=== PATIENT | female | born 1935 | race Caucasian/White ===

== ENCOUNTER 2019-04-11 07:33 | Outpatient (CLI) | payer MEDICARE, SELFPAY ==
[2019-04-11 08:14] LABS: Add Urine Microscopic? NO; Appearance Urine Clear (Clear); Bilirubin Urine Negative (Negative); Blood Urine Negative (Negative); Color Urine Yellow (Yellow); Glucose Urine UA Negative (Negative); Ketones Urine Negative (Negative); Leukocyte Esterase Ur Negative (Negative); Nitrate Urine Negative (Negative); Protein Urine Negative (Negative); Specific Grav Ur 1.025 (1.010-1.020); Urobilinogen Urine 0.2 mg/dL (0.2-1.0)
[2019-04-11 08:15] LABS: Basophils Absolute Auto 0.02 K/mm3 (0.00-0.10); Basophils Percent Auto 0.4 % (0.0-1.0); Eosinophils Absolute Auto 0.06 K/mm3 (0.02-0.50); Eosinophils Percent Auto 1.3 % (1.0-6.0); Hematocrit 48.7 % (35.0-42.0); Hemoglobin 16.1 g/dL (11.7-13.8); Immature Granulocyte Absolute 0.03 K/mm3 (0.00-0.00); Immature Granulocyte Percent A 0.7 % (0.0-0.0); Immature Platelet Fraction Pct 2.6 % (1.0-7.0); Lymphocytes Absolute Auto 1.76 K/mm3 (1.10-4.50); Lymphocytes Percent Auto 39.2 % (18.0-42.0); Mean Corpuscular HGB Conc 33.1 g/dL (32.0-36.0); Mean Corpuscular Hemoglobin 30.6 pg (27.0-31.0); Mean Corpuscular Volume 92.4 fL (78.0-102.0); Mean Platelet Volume 10.6 fl (9.2-11.8); Monocytes Percent Auto 8.9 % (2.0-11.0); Neutrophils Absolute Auto 2.2 K/mm3 (1.7-7.2); Neutrophils Percent Auto 49.5 % (50.0-70.0); Platelet Count Result 129 K/mm3 (150-420); Red Blood Count 5.27 M/mm3 (4.20-5.40); Red Cell Distribution Width 11.9 % (11.6-14.4); White Blood Count 4.5 K/mm3 (4.8-10.8)
[2019-04-11 09:17] LABS: Erythrocyte Sedimentation Rate 1 mm/hr (0-20)
[2019-04-11 09:24] LABS: Alanine Aminotransferase 48 U/L (14-59); Albumin Level 4.2 g/dL (3.4-5.0); Alkaline Phosphatase 89 U/L (46-116); Aspartate Amino Transferase 31 U/L (15-37); Blood Urea Nitrogen 24 mg/dL (7-18); Calcium 9.8 mg/dL (8.5-10.1); Carbon Dioxide 30 mmol/L (21-32); Chloride 107 mmol/L (98-108); Cholesterol 206 mg/dL (0-200); Creatine Kinase 65 U/L (26-192); Estimated Glomerular Filt Rate 54; Glucose 99 mg/dL (70-99); HDL Direct 63 mg/dL (40-60); LDL Cholesterol Calculated 110 mg/dL (<130); Osmolality Calculated 308 mOsm/kg (285-295); Sodium 147 mmol/L (136-145); Total Protein 7.1 g/dL (6.4-8.2); Triglycerides 167 mg/dL (0-150)
[2019-04-11 11:06] LABS: CRP < 0.2 mg/dL (0.0-0.9)
[2019-04-15 09:23] LABS: Vitamin D 25 Hydroxy 32 ng/mL (30-100)
== END 2019-04-11 07:34 | disposition home or self-care (01) ==
PROVIDERS: PCP Internal Medicine; Visit Provider Internal Medicine
DX: E78.2 Mixed hyperlipidemia (principal); I10 Essential (primary) hypertension; D69.6 Thrombocytopenia, unspecified; M81.0 Age-related osteoporosis without current pathological fracture; M35.3 Polymyalgia rheumatica
CPT/HCPCS: 36415; 80053; 80061; 81003; 82306; 82550; 85025; 85055; 85652; 86140

== ENCOUNTER 2019-06-24 10:28 | Outpatient (CLI) | payer MEDICARE, BC, SELFPAY ==
[2019-06-24 10:42] LABS: Eosinophils Absolute Auto 0.04 K/mm3 (0.02-0.50); Eosinophils Percent Auto 0.8 % (1.0-6.0); Hematocrit 48.6 % (35.0-42.0); Hemoglobin 16.3 g/dL (11.7-13.8); Immature Granulocyte Absolute 0.02 K/mm3 (0.00-0.00); Immature Granulocyte Percent A 0.4 % (0.0-0.0); Immature Platelet Fraction Pct 3.3 % (1.0-7.0); Lymphocytes Percent Auto 33.3 % (18.0-42.0); Mean Corpuscular HGB Conc 33.5 g/dL (32.0-36.0); Mean Corpuscular Hemoglobin 30.6 pg (27.0-31.0); Mean Corpuscular Volume 91.4 fL (78.0-102.0); Mean Platelet Volume 10.6 fl (9.2-11.8); Monocytes Percent Auto 6.2 % (2.0-11.0); Neutrophils Absolute Auto 2.9 K/mm3 (1.7-7.2); Neutrophils Percent Auto 59.3 % (50.0-70.0); Platelet Count Result 125 K/mm3 (150-420); Red Blood Count 5.32 M/mm3 (4.20-5.40); Red Cell Distribution Width 11.7 % (11.6-14.4); White Blood Count 4.8 K/mm3 (4.8-10.8)
--- NOTE | 2019-06-24 10:50 | ECG_ITS ---
Measurements Intervals [place] Rate: 64 P: 71 [place]: 162 QRS: -12 QRSD: 88 T: 68 QT: 404 QTc: 419 Interpretive Statements SINUS RHYTHM INCOMPLETE RIGHT BUNDLE BRANCH BLOCK INFERIOR INFARCT, AGE INDETERMINATE ABNORMAL ECG Electronically Signed On 06-24-2019 11:14:49 CDT by Sukhwinder Matthews D.O.
[2019-06-24 11:08] LABS: Alanine Aminotransferase 40 U/L (14-59); Albumin Level 4.1 g/dL (3.4-5.0); Alkaline Phosphatase 91 U/L (46-116); Anion Gap 12.2 mmol/L (7-16); Aspartate Amino Transferase 27 U/L (15-37); Bilirubin,Total 0.8 mg/dL (0.00-1.00); Blood Urea Nitrogen 24 mg/dL (7-18); Calcium 10.2 mg/dL (8.5-10.1); Carbon Dioxide 31 mmol/L (21-32); Chloride 106 mmol/L (98-108); Creatine Kinase 74 U/L (26-192); Estimated Glomerular Filt Rate 60; Glucose 108 mg/dL (70-99); Osmolality Calculated 305 mOsm/kg (285-295); Potassium 4.2 mmol/L (3.5-5.1); Sodium 145 mmol/L (136-145); Total Protein 7.2 g/dL (6.4-8.2)
[2019-06-24 11:09] LABS: CRP < 0.2 mg/dL (0.0-0.9); Troponin I < 0.02 ng/mL (0.00-0.056)
[2019-06-24 11:47] LABS: Erythrocyte Sedimentation Rate 1 mm/hr (0-20)
== END 2019-06-24 10:29 | disposition home or self-care (01) ==
LOC: CHSLAB 10:31
PROVIDERS: PCP Internal Medicine; Visit Provider Internal Medicine
DX: R07.9 Chest pain, unspecified (principal); R10.9 Unspecified abdominal pain; M79.10 Myalgia, unspecified site
CPT/HCPCS: 36415; 80053; 82550; 82553; 84484; 85025; 85055; 85652; 86140; 93005

== ENCOUNTER 2019-07-13 07:03 | Outpatient (CLI) | payer MEDICARE, SELFPAY ==
[2019-07-13 08:15] LABS: Anion Gap 13.3 mmol/L (7-16); Blood Urea Nitrogen 25 mg/dL (7-18); Calcium 10.4 mg/dL (8.5-10.1); Carbon Dioxide 34 mmol/L (21-32); Chloride 100 mmol/L (98-108); Estimated Glomerular Filt Rate 50; Glucose 118 mg/dL (70-99); Magnesium 1.6 mg/dL (1.8-2.4); Osmolality Calculated 303 mOsm/kg (285-295); Potassium 3.3 mmol/L (3.5-5.1); Sodium 144 mmol/L (136-145)
== END 2019-07-13 07:04 | disposition home or self-care (01) ==
PROVIDERS: PCP Internal Medicine; Visit Provider Specialist
DX: I20.8 Other forms of angina pectoris (principal); I10 Essential (primary) hypertension
CPT/HCPCS: 36415; 80048; 83735

== ENCOUNTER 2019-07-18 07:05 | Outpatient (CLI) | payer MEDICARE, SELFPAY ==
[2019-07-18 08:38] LABS: Anion Gap 14.4 mmol/L (7-16); Blood Urea Nitrogen 29 mg/dL (7-18); Calcium 10.3 mg/dL (8.5-10.1); Carbon Dioxide 30 mmol/L (21-32); Chloride 101 mmol/L (98-108); Estimated Glomerular Filt Rate 50; Glucose 116 mg/dL (70-99); Magnesium 1.8 mg/dL (1.8-2.4); Osmolality Calculated 300 mOsm/kg (285-295); Potassium 3.4 mmol/L (3.5-5.1); Sodium 142 mmol/L (136-145)
== END 2019-07-18 07:06 | disposition home or self-care (01) ==
LOC: CHSLAB 07:07
PROVIDERS: PCP Internal Medicine; Visit Provider Specialist
DX: I10 Essential (primary) hypertension (principal)
CPT/HCPCS: 36415; 80048; 83735

== ENCOUNTER 2019-08-04 07:03 | Outpatient (CLI) | payer MEDICARE, SELFPAY ==
[2019-08-04 08:45] LABS: Alanine Aminotransferase 47 U/L (14-59); Cholesterol 176 mg/dL (0-200); HDL Direct 65 mg/dL (40-60); LDL Cholesterol Calculated 89 mg/dL (<130); Triglycerides 110 mg/dL (0-150)
== END 2019-08-04 07:04 | disposition home or self-care (01) ==
PROVIDERS: PCP Internal Medicine; Visit Provider Specialist
DX: E78.2 Mixed hyperlipidemia (principal); I10 Essential (primary) hypertension; R07.9 Chest pain, unspecified; R06.02 Shortness of breath
CPT/HCPCS: 36415; 80061; 84460

== ENCOUNTER 2019-10-14 07:23 | Outpatient (CLI) | payer MEDICARE, SELFPAY ==
[2019-10-14 07:41] LABS: Basophils Absolute Auto 0.01 K/mm3 (0.00-0.10); Basophils Percent Auto 0.2 % (0.0-1.0); Eosinophils Absolute Auto 0.07 K/mm3 (0.02-0.50); Eosinophils Percent Auto 1.3 % (1.0-6.0); Hematocrit 50.3 % (35.0-42.0); Hemoglobin 16.4 g/dL (11.7-13.8); Immature Granulocyte Absolute 0.03 K/mm3 (0.00-0.00); Immature Granulocyte Percent A 0.6 % (0.0-0.0); Immature Platelet Fraction Pct 3.9 % (1.0-7.0); Lymphocytes Absolute Auto 1.88 K/mm3 (1.10-4.50); Lymphocytes Percent Auto 36.1 % (18.0-42.0); Mean Corpuscular HGB Conc 32.6 g/dL (32.0-36.0); Mean Corpuscular Hemoglobin 30.7 pg (27.0-31.0); Monocytes Absolute Auto 0.47 K/mm3 (0.10-0.90); Neutrophils Absolute Auto 2.8 K/mm3 (1.7-7.2); Neutrophils Percent Auto 52.8 % (50.0-70.0); Platelet Count Result 131 K/mm3 (150-420); Red Blood Count 5.35 M/mm3 (4.20-5.40); Red Cell Distribution Width 12.3 % (11.6-14.4); White Blood Count 5.2 K/mm3 (4.8-10.8)
[2019-10-14 07:49] LABS: Hemoglobin A1C 6.3 % (<5.7)
[2019-10-14 08:00] LABS: Add Urine Microscopic? NO; Appearance Urine Clear (Clear); Bilirubin Urine Negative (Negative); Blood Urine Negative (Negative); Color Urine Yellow (Yellow); Glucose Urine UA Negative (Negative); Ketones Urine Negative (Negative); Leukocyte Esterase Ur Negative (Negative); Nitrate Urine Negative (Negative); Protein Urine Negative (Negative); Specific Grav Ur 1.025 (1.010-1.020); Urobilinogen Urine 0.2 mg/dL (0.2-1.0)
[2019-10-14 08:21] LABS: Alanine Aminotransferase 63 U/L (14-59); Albumin Level 4.1 g/dL (3.4-5.0); Alkaline Phosphatase 70 U/L (46-116); Anion Gap 8 mmol/L (8-16); Aspartate Amino Transferase 42 U/L (15-37); Bilirubin,Total 1.1 mg/dL (0.00-1.00); Blood Urea Nitrogen 24 mg/dL (7-18); Calcium 10.1 mg/dL (8.5-10.1); Carbon Dioxide 32 mmol/L (21-32); Chloride 102 mmol/L (98-108); Cholesterol 186 mg/dL (0-200); Creatine Kinase 100 U/L (26-192); Estimated Glomerular Filt Rate 49; Glucose 114 mg/dL (70-99); HDL Direct 69 mg/dL (40-60); LDL Cholesterol Calculated 85 mg/dL (<130); Osmolality Calculated 299 mOsm/kg (285-295); Potassium 3.8 mmol/L (3.5-5.1); Sodium 142 mmol/L (136-145); Total Protein 7.2 g/dL (6.4-8.2); Triglycerides 160 mg/dL (0-150)
== END 2019-10-14 07:24 | disposition home or self-care (01) ==
LOC: CHSLAB 07:25
PROVIDERS: PCP Internal Medicine; Visit Provider Internal Medicine
DX: R73.01 Impaired fasting glucose (principal); I10 Essential (primary) hypertension; E78.2 Mixed hyperlipidemia; D69.6 Thrombocytopenia, unspecified
CPT/HCPCS: 36415; 80053; 80061; 81003; 82550; 83036; 85025; 85055

== ENCOUNTER 2019-10-15 07:27 | Outpatient (CLI) | payer MEDICARE, BC, SELFPAY ==
--- NOTE | ~2019-10-15 | US_ITS ---
EXAMINATION: US right upper quadrant EXAM DATE: 10/15/2019 08:06 INDICATION: Elevated liver enzymes. TECHNIQUE: Multiple grayscale and Doppler images of the abdomen right upper quadrant were obtained (b y a technologist who performed the scan) and subsequently reviewed. Comparison is made to prior exami nation from 04/19/2015. FINDINGS: The pancreatic head and body are normal in appearance. The pancreatic tail is not visualized. There is echogenic liver parenchyma, hepatic steatosis. There are no focal liver lesions identified. Th ere is no evidence of intrahepatic biliary duct dilation. Portal venous flow was seen in the hepatop edal, normal direction and has normal Doppler waveform. No right-sided hydronephrosis. Common bile duct measures 5 mm, which is normal. The gallbladder fossa is unremarkable. IMPRESSION: 1. Hepatic steatosis. Reviewed, dictated and finalized at location B. IMPRESSION: 1. Hepatic steatosis.
== END 2019-10-15 07:28 ==
LOC: CHSIMG 07:28
PROVIDERS: PCP Internal Medicine; Visit Provider Internal Medicine
DX: R94.5 Abnormal results of liver function studies (principal)
CPT/HCPCS: 76705

== ENCOUNTER 2019-12-03 07:18 | Outpatient (CLI) | payer MEDICARE, BC, SELFPAY ==
--- NOTE | ~2019-12-03 | MM_ITS ---
EXAMINATION: MM screening elizabeth BI w sabina HISTORY: Screening TECHNIQUE: Craniocaudal and mediolateral oblique 3-D tomosynthesis images were obtained and synthetic 2-D images were generated. CAD analysis was submitted and interpreted. COMPARISON: Comparison to multiple prior studies sequentially, with oldest reviewed study dated 07/14. BREAST PARENCHYMAL COMPOSITION: The breasts are heterogeneously dense, which may obscure small masses . FINDINGS: There is no evidence of suspicious mass, calcification, or architectural distortion to sugg est malignancy in either breast. There has been no suspicious interval change. IMPRESSION: 1. No mammographic evidence of malignancy. 2. Recommend routine screening mammography in one year. BI-RADS Category 1: Negative Reviewed, dictated and finalized at location A.
[2019-12-03 08:37] LABS: Alanine Aminotransferase 58 U/L (14-59); Albumin Level 4.2 g/dL (3.4-5.0); Alkaline Phosphatase 65 U/L (46-116); Anion Gap 8 mmol/L (8-16); Aspartate Amino Transferase 35 U/L (15-37); Blood Urea Nitrogen 23 mg/dL (7-18); Calcium 10.2 mg/dL (8.5-10.1); Carbon Dioxide 31 mmol/L (21-32); Chloride 102 mmol/L (98-108); Estimated Glomerular Filt Rate 60; Glucose 101 mg/dL (70-99); Osmolality Calculated 295 mOsm/kg (285-295); Potassium 3.7 mmol/L (3.5-5.1); Sodium 141 mmol/L (136-145); Total Protein 6.9 g/dL (6.4-8.2)
== END 2019-12-03 07:19 | disposition home or self-care (01) ==
LOC: CHSIMG 07:20
PROVIDERS: PCP Internal Medicine; Visit Provider Internal Medicine
DX: Z12.31 Encounter for screening mammogram for malignant neoplasm of breast (principal); R94.5 Abnormal results of liver function studies
CPT/HCPCS: 36415; 77063; 77067; 80053

== ENCOUNTER 2020-04-28 07:15 | Outpatient (CLI) | payer MEDICARE, SELFPAY ==
[2020-04-28 07:33] LABS: Hemoglobin 15.7 g/dL (11.7-13.8); Mean Corpuscular HGB Conc 33.4 g/dL (32.0-36.0); Mean Corpuscular Hemoglobin 30.7 pg (27.0-31.0); Mean Corpuscular Volume 91.8 fL (78.0-102.0); Mean Platelet Volume 10.8 fl (9.2-11.8); Platelet Count Result 116 K/mm3 (150-420); Red Blood Count 5.12 M/mm3 (4.20-5.40); Red Cell Distribution Width 11.5 % (11.6-14.4); White Blood Count 3.8 K/mm3 (4.8-10.8)
[2020-04-28 07:37] LABS: Add Urine Microscopic? NO; Appearance Urine Clear (Clear); Bilirubin Urine Negative (Negative); Blood Urine Negative (Negative); Color Urine Yellow (Yellow); Glucose Urine UA Negative (Negative); Ketones Urine Negative (Negative); Leukocyte Esterase Ur Negative LEU/UL (Negative); Nitrate Urine Negative (Negative); Protein Urine Negative (Negative); Specific Grav Ur 1.025 (1.010-1.020); Urobilinogen Urine 0.2 mg/dL (0.2-1.0)
[2020-04-28 07:42] LABS: Hemoglobin A1C 6.2 % (<5.7)
[2020-04-28 08:12] LABS: Band Neutrophils Percent 0 % (0-6); Lymphocytes Absolute Manual 1.21 K/mm3 (1.1-4.5); Lymphocytes Percent Manual 32 % (18-44); Monocytes Absolute Manual 0.41 K/mm3 (0.1-0.90); Monocytes Percent Manual 11 % (3-9); Neutrophils Absolute Manual 2.16 K/mm3 (1.7-7.2); Neutrophils Percent Manual 57 % (46-73); Total Cells Counted 100
[2020-04-28 08:13] LABS: Platelet Estimate Adequate (Adequate)
[2020-04-28 08:27] LABS: Alanine Aminotransferase 63 U/L (14-59); Alkaline Phosphatase 58 U/L (46-116); Anion Gap 6 mmol/L (8-16); Aspartate Amino Transferase 31 U/L (15-37); Blood Urea Nitrogen 29 mg/dL (7-18); CRP < 0.2 mg/dL (0.0-0.9); Calcium 9.9 mg/dL (8.5-10.1); Carbon Dioxide 33 mmol/L (21-32); Chloride 101 mmol/L (98-108); Cholesterol 180 mg/dL (0-200); Creatine Kinase 78 U/L (26-192); Estimated Glomerular Filt Rate 49; Glucose 123 mg/dL (70-99); HDL Direct 62 mg/dL (40-60); LDL Cholesterol Calculated 93 mg/dL (<130); Osmolality Calculated 296 mOsm/kg (285-295); Potassium 3.6 mmol/L (3.5-5.1); Sodium 140 mmol/L (136-145); Total Protein 6.7 g/dL (6.4-8.2); Triglycerides 127 mg/dL (0-150)
[2020-04-28 08:39] LABS: Erythrocyte Sedimentation Rate 3 mm/hr (0-20)
== END 2020-04-28 07:16 | disposition home or self-care (01) ==
PROVIDERS: PCP Internal Medicine; Visit Provider Internal Medicine
DX: R73.01 Impaired fasting glucose (principal); I10 Essential (primary) hypertension; E78.5 Hyperlipidemia, unspecified; M35.3 Polymyalgia rheumatica; D69.6 Thrombocytopenia, unspecified
CPT/HCPCS: 36415; 80053; 80061; 81003; 82550; 83036; 85025; 85652; 86140

== ENCOUNTER 2020-06-21 07:13 | Outpatient (CLI) | payer MEDICARE, SELFPAY ==
[2020-06-21 07:26] LABS: Basophils Absolute Auto 0.01 K/mm3 (0.00-0.10); Basophils Percent Auto 0.2 % (0.0-1.0); Eosinophils Absolute Auto 0.05 K/mm3 (0.02-0.50); Eosinophils Percent Auto 1.1 % (1.0-6.0); Hemoglobin 15.3 g/dL (11.7-13.8); Immature Granulocyte Absolute 0.02 K/mm3 (0.00-0.00); Immature Granulocyte Percent A 0.4 % (0.0-0.0); Immature Platelet Fraction Pct 3.9 % (1.0-7.0); Immature Reticulocyte Fraction 14.2 % (2.0-16.52); Lymphocytes Absolute Auto 1.82 K/mm3 (1.10-4.50); Lymphocytes Percent Auto 39.9 % (18.0-42.0); Mean Corpuscular HGB Conc 33.3 g/dL (32.0-36.0); Mean Corpuscular Hemoglobin 30.8 pg (27.0-31.0); Mean Corpuscular Volume 92.7 fL (78.0-102.0); Mean Platelet Volume 10.7 fl (9.2-11.8); Monocytes Absolute Auto 0.41 K/mm3 (0.10-0.90); Neutrophils Absolute Auto 2.3 K/mm3 (1.7-7.2); Neutrophils Percent Auto 49.4 % (50.0-70.0); Platelet Count Result 122 K/mm3 (150-420); Red Blood Count 4.96 M/mm3 (4.20-5.40); Red Cell Distribution Width 11.8 % (11.6-14.4); Reticulocyte Hemoglobin Conten 36.7 pg (28.0-35.0); White Blood Count 4.6 K/mm3 (4.8-10.8)
[2020-06-21 07:38] LABS: Partial Thromboplastin Time 23.8 SEC (23.90-30.70); Prothrombin Time 10.9 Seconds (9.50-12.10)
== END 2020-06-21 07:14 | disposition home or self-care (01) ==
LOC: CHSLAB 07:15
PROVIDERS: PCP Internal Medicine; Visit Provider Internal Medicine
DX: K92.1 Melena (principal)
CPT/HCPCS: 36415; 85025; 85046; 85055; 85610; 85730

== ENCOUNTER → 2020-07-25 02:00 | Outpatient (CLI) | payer MEDICARE, SELFPAY ==
[2020-07-25 17:04] LABS: SARS-CoV-2 RNA PCR Negative
== END ==
PROVIDERS: Internal Medicine Gastroenterology; PCP Internal Medicine; Visit Provider Surgery
DX: Z01.812 Encounter for preprocedural laboratory examination (principal); Z20.822 Contact with and (suspected) exposure to COVID-19
CPT/HCPCS: C9803; U0003; U0005

== ENCOUNTER 2020-07-28 00:06 | Day surgery (SDC) | payer MEDICARE, BC, SELFPAY ==
[2020-07-19 15:19] VITALS: BMI 27.4
[2020-07-28 06:30] VITALS: BP 126/76; PULSE 60; RESP 16; TEMP 36.1; O2SAT 97
[2020-07-28] MEDS: LACTATED RINGERS 1,000 ML 150 ML IV CONT (06:39)
--- NOTE | 2020-07-28 07:13 | WPDANESEPPF ---
Anes - Initial Pre Proc Eval Procedure: Operation Date: 07/28/20 07:30 Proposed Procedures p Colonoscopy - Mio Wade DO Date/Time: 07/28/20 07:13 Surgeon: Mio Wade DO Pre Op Diagnosis: melena Patient Data Age: 85 Gender: F Height: 5 ft 4 in Weight: 72.4 kg Last Vital Signs Temp 96.9 F L 07/28/20 06:30 Pulse 60 07/28/20 06:30 Resp 16 07/28/20 06:30 BP 126/76 07/28/20 06:30 Pulse Ox 97 07/28/20 06:30 Allergies Allergy/AdvReac Type Severity Reaction Status Date / Time No Known Allergies Allergy Verified 07/28/20 06:29 Home Medications Medication Instructions Recorded Confirmed Type amitriptyline 10 mg PO DAILY 07/19/20 07/19/20 History brimonidine [Alphagan P] 0.1 drp RIGHT EYE BID 07/19/20 07/19/20 History chlorthalidone 25 mg PO DAILY 07/19/20 07/19/20 History losartan 100 mg PO DAILY 07/19/20 07/19/20 History magnesium oxide 400 mg PO DAILY 07/19/20 07/19/20 History metoprolol tartrate 100 mg PO BID 07/19/20 07/19/20 History metronidazole 1 applic TOPICAL PRN 07/19/20 07/19/20 History pantoprazole 40 mg PO DAILY 07/19/20 07/19/20 History potassium chloride [Klor-Con M20] 20 meq PO DAILY 07/19/20 07/19/20 History pravastatin 40 mg PO DAILY 07/19/20 07/19/20 History prednisone 3 mg PO DAILY 07/19/20 07/19/20 History travoprost 1 drp RIGHT EYE HS 07/19/20 07/19/20 History Patient hx anesthesia problems: none Family hx anesthesia problems: none PMFSH Past Medical History Medical History (Updated 07/28/20 @ 07:11 by Austin Abdul MD) Hyperlipidemia Hypertension Social History Social History Smoking status: Never smoker Living arrangements: alone Gender identity (if verbalized by the patient): Female Spiritual care concerns: No Anes - Eval Final PreProcedure Day of Procedure 07/28/20 07:13 Patient weight: normal Heart: regular rate and rhythm Lungs: clear to auscultation Airway: Mallampati scale class II Neurological: alert and oriented Last oral intake: >/= 8 hours ASA classification: II Emergent: no Anesthetic plan: proceed Anesthesia type and monitoring: general GIVS and standard monitoring Informed Consent: The patient's anesthetic plan and its attendant risks and benefits were discussed with the patient/family/POA. Questions were solicited and answers provided to the satisfaction of the patient/family/POA.
--- NOTE | 2020-07-28 07:35 | PM.IMHP ---
H&P: HPI History of Present Illness Date/Time: 07/28/20 07:35 Chief Complaint: Family history colon cancer Narrative: this is an 85-year-old woman who presents for colonoscopy. Her last colonoscopy was 8 years ago and she thinks polyps were removed. She has noticed some blood on her toilet paper when wiping, but no blood in her stool. She has a family history of colon cancer in her mother who was diagnosed in her 80s. She reports no other change in bowel habits. Review of Systems Review of Systems: All systems reviewed & are unremarkable except as noted in HPI and below Constitutional: Constitutional: Denies chills, Denies fever(s), Denies headache(s) and Denies weight loss Eyes: Eyes: Denies change in vision ENT: Denies dizziness, Denies headache(s), Denies neck mass and Denies throat swelling Cardiovascular: Cardiovascular: Denies chest pain, Denies lightheadedness and Denies dyspnea Respiratory: Respiratory: Denies cough, Denies dyspnea and Denies wheezing Gastrointestinal: Gastrointestinal: Denies abdominal pain, Denies change in bowel habits, Denies nausea and Denies vomiting Genitourinary: Genitourinary: Denies hematuria and Denies dysuria Musculoskeletal: Musculoskeletal: Reports as per HPI Integumentary/Breasts: Skin/Breast: Reports as per HPI Neurologic: Denies dizziness and Denies headache(s) Allergic/Immunologic: Allergic/Immunologic: Denies throat swelling and Denies wheezing [facility] Past Medical History Medical History (Updated 07/28/20 @ 07:36 by Mio Wade DO) Hyperlipidemia Hypertension Social History Social History Smoking status: Never smoker Living arrangements: alone Gender identity (if verbalized by the patient): Female Spiritual care concerns: No Meds Home Medications and Allergies Home Medications Medication Instructions Recorded Confirmed Type amitriptyline 10 mg PO DAILY 07/19/20 07/19/20 History brimonidine [Alphagan P] 0.1 drp RIGHT EYE BID 07/19/20 07/19/20 History chlorthalidone 25 mg PO DAILY 07/19/20 07/19/20 History losartan 100 mg PO DAILY 07/19/20 07/19/20 History magnesium oxide 400 mg PO DAILY 07/19/20 07/19/20 History metoprolol tartrate 100 mg PO BID 07/19/20 07/19/20 History metronidazole 1 applic TOPICAL PRN 07/19/20 07/19/20 History pantoprazole 40 mg PO DAILY 07/19/20 07/19/20 History potassium chloride [Klor-Con M20] 20 meq PO DAILY 07/19/20 07/19/20 History pravastatin 40 mg PO DAILY 07/19/20 07/19/20 History prednisone 3 mg PO DAILY 07/19/20 07/19/20 History travoprost 1 drp RIGHT EYE HS 07/19/20 07/19/20 History Allergies Allergy/AdvReac Type Severity Reaction Status Date / Time No Known Allergies Allergy Verified 07/28/20 06:29 Vital Signs Vital Signs - 24 hr 07/28/20 06:30 Temperature 36.1 C L Pulse Rate 60 Respiratory Rate 16 Blood Pressure 126/76 Pulse Oximetry 97 Exam Const: General: no acute distress and alert Orientation/consciousness: patient oriented x3 HENMT: Head: normocephalic and atraumatic Ears: hearing grossly normal bilaterally General nose exam: Normal nares present Mouth: Yes Normal oral and palatal mucosa present Eyes: Periorbital: periorbital findings normal Sclera: sclerae normal EOM: EOMs intact bilaterally Neck: Neck: normal visual inspection, no lymphadenopathy and trachea midline Chest: Chest palpation & inspection: normal inspection of the chest Resp: Effort & Inspection: normal respiratory effort Auscultation: clear to auscultation bilaterally Cardio: Jugular venous distension: no JVD Rate: regular rate Rhythm: regular rhythm Heart sounds: S1 normal heart sound present and S2 normal heart sound present Peripheral pulses: Peripheral pulses 2+ throughout GI: Inspection: normal to inspection GI Palp: Yes Soft to palpation, No Tenderness to palpation present (GI), No Guarding due to palpation present (GI) and No Rebound tenderness present Percussion: Yes normal to percussion
[2020-07-28 07:56] VITALS: BP 100/66; PULSE 58; RESP 16; O2SAT 98
[2020-07-28 08:06] VITALS: BP 109/60; PULSE 60; RESP 20; O2SAT 99
[2020-07-28 08:16] VITALS: BP 110/62; PULSE 60; RESP 20; O2SAT 99
== END 2020-07-28 09:23 | disposition home or self-care (01) ==
PROVIDERS: PCP Internal Medicine; Visit Provider Surgery
PROC: 0DJD8ZZ Inspection of Lower Intestinal Tract, Via Natural or Artificial Opening Endoscopic (ICD-10-PCS; CPT 45378; principal; 2020-07-28 07:30)
DX: Z12.11 Encounter for screening for malignant neoplasm of colon (principal); Z80.0 Family history of malignant neoplasm of digestive organs; I10 Essential (primary) hypertension; E78.5 Hyperlipidemia, unspecified
CPT/HCPCS: G0105; J2704; J7120

== ENCOUNTER 2020-08-20 07:00 | Outpatient (CLI) | payer MEDICARE, SELFPAY ==
[2020-08-20 07:19] LABS: Basophils Absolute Auto 0.02 K/mm3 (0.00-0.10); Basophils Percent Auto 0.4 % (0.0-1.0); Eosinophils Absolute Auto 0.05 K/mm3 (0.02-0.50); Eosinophils Percent Auto 1.1 % (1.0-6.0); Hematocrit 48.7 % (35.0-42.0); Hemoglobin 16.2 g/dL (11.7-13.8); Immature Granulocyte Absolute 0.02 K/mm3 (0.00-0.00); Immature Granulocyte Percent A 0.4 % (0.0-0.0); Immature Platelet Fraction Pct 3.4 % (1.0-7.0); Lymphocytes Percent Auto 41.1 % (18.0-42.0); Mean Corpuscular HGB Conc 33.3 g/dL (32.0-36.0); Mean Corpuscular Volume 93.3 fL (78.0-102.0); Mean Platelet Volume 10.7 fl (9.2-11.8); Monocytes Absolute Auto 0.43 K/mm3 (0.10-0.90); Monocytes Percent Auto 9.3 % (2.0-11.0); Neutrophils Absolute Auto 2.2 K/mm3 (1.7-7.2); Neutrophils Percent Auto 47.7 % (50.0-70.0); Platelet Count Result 127 K/mm3 (150-420); Red Blood Count 5.22 M/mm3 (4.20-5.40); Red Cell Distribution Width 11.9 % (11.6-14.4); White Blood Count 4.6 K/mm3 (4.8-10.8)
[2020-08-20 07:56] LABS: Anion Gap 11 mmol/L (8-16); Blood Urea Nitrogen 23 mg/dL (7-18); Calcium 9.7 mg/dL (8.5-10.1); Carbon Dioxide 29 mmol/L (21-32); Chloride 104 mmol/L (98-108); Estimated Glomerular Filt Rate 57; Glucose 110 mg/dL (70-99); Magnesium 2.1 mg/dL (1.8-2.4); Osmolality Calculated 302 mOsm/kg (285-295); Potassium 4.1 mmol/L (3.5-5.1); Sodium 144 mmol/L (136-145)
== END 2020-08-20 07:01 | disposition home or self-care (01) ==
LOC: CHSLAB 07:03
PROVIDERS: PCP Internal Medicine; Visit Provider Specialist
DX: D69.6 Thrombocytopenia, unspecified (principal); I10 Essential (primary) hypertension
CPT/HCPCS: 36415; 80048; 83735; 85025; 85055

== ENCOUNTER 2020-09-27 12:28 | Outpatient (CLI) | payer MEDICARE, BC, SELFPAY ==
--- NOTE | ~2020-09-27 | US_ITS ---
EXAMINATION: US retroperitoneal comp DATE: 09/27/2020 12:51 INDICATION: Right flank pain. TECHNIQUE: Multiple ultrasound grayscale images of the kidneys were obtained. COMPARISON: None. FINDINGS: The right kidney measures 9.5 x 5.4 x 5.5 cm. The left kidney measures 10.6 x 6.1 x 4.5 cm. The kidne ys demonstrate normal parenchymal echogenicity. There are cysts in right kidney measuring up to 2.7 c m. There is no hydronephrosis. The bladder is normal. IMPRESSION: 1. Normal kidney sizes. No hydronephrosis. 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
== END 2020-09-27 12:29 | disposition home or self-care (01) ==
LOC: CHSIMG 12:33
PROVIDERS: PCP Internal Medicine; Visit Provider Internal Medicine
DX: R10.9 Unspecified abdominal pain (principal)
CPT/HCPCS: 76770

== ENCOUNTER 2020-11-04 07:10 | Outpatient (CLI) | payer MEDICARE, SELFPAY ==
[2020-11-04 07:28] LABS: Basophils Absolute Auto 0.01 K/mm3 (0.00-0.10); Basophils Percent Auto 0.2 % (0.0-1.0); Eosinophils Absolute Auto 0.04 K/mm3 (0.02-0.50); Eosinophils Percent Auto 0.9 % (1.0-6.0); Hematocrit 48.9 % (35.0-42.0); Hemoglobin 15.8 g/dL (11.7-13.8); Immature Granulocyte Absolute 0.03 K/mm3 (0.00-0.00); Immature Granulocyte Percent A 0.7 % (0.0-0.0); Immature Platelet Fraction Pct 3.8 % (1.0-7.0); Lymphocytes Absolute Auto 1.81 K/mm3 (1.10-4.50); Mean Corpuscular HGB Conc 32.3 g/dL (32.0-36.0); Mean Corpuscular Hemoglobin 30.3 pg (27.0-31.0); Mean Corpuscular Volume 93.7 fL (78.0-102.0); Mean Platelet Volume 10.7 fl (9.2-11.8); Monocytes Absolute Auto 0.41 K/mm3 (0.10-0.90); Monocytes Percent Auto 9.3 % (2.0-11.0); Neutrophils Absolute Auto 2.1 K/mm3 (1.7-7.2); Neutrophils Percent Auto 47.9 % (50.0-70.0); Platelet Count Result 113 K/mm3 (150-420); Red Blood Count 5.22 M/mm3 (4.20-5.40); Red Cell Distribution Width 11.7 % (11.6-14.4); White Blood Count 4.4 K/mm3 (4.8-10.8)
[2020-11-04 07:29] LABS: Add Urine Microscopic? YES; Appearance Urine Clear (Clear); Bilirubin Urine Negative (Negative); Blood Urine Negative (Negative); Color Urine Light Yellow (Yellow); Glucose Urine UA Negative (Negative); Ketones Urine Negative (Negative); Leukocyte Esterase Ur 1+ LEU/UL (Negative); Nitrate Urine Negative (Negative); Protein Urine Negative (Negative); Specific Grav Ur 1.025 (1.010-1.020); Urobilinogen Urine 0.2 mg/dL (0.2-1.0); pH Urine 5.5 (5.0-8.0)
[2020-11-04 07:37] LABS: Creatinine Urine 154.48 mg/dL (40-278); MALB Creatinine Ratio 8.4 mg/g (0-30); Microalbumin Urine Random < 13.0 mg/L
[2020-11-04 07:55] LABS: RBC Urine None seen /hpf (0-2)
[2020-11-04 07:56] LABS: Bacteria Urine Trace /hpf; Squamous Epithelial Cell Urine Rare /hpf (Few); WBC Urine 0-3 /hpf (0-3)
[2020-11-04 08:28] LABS: Alanine Aminotransferase 60 U/L (14-59); Albumin Level 4.2 g/dL (3.4-5.0); Alkaline Phosphatase 70 U/L (46-116); Anion Gap 5 mmol/L (8-16); Aspartate Amino Transferase 32 U/L (15-37); Blood Urea Nitrogen 26 mg/dL (7-18); Calcium 9.9 mg/dL (8.5-10.1); Carbon Dioxide 32 mmol/L (21-32); Chloride 107 mmol/L (98-108); Cholesterol 145 mg/dL (0-200); Creatine Kinase 158 U/L (26-192); Erythrocyte Sedimentation Rate 5 mm/hr (0-20); Estimated Glomerular Filt Rate 55; Glucose 98 mg/dL (70-99); HDL Direct 69 mg/dL (40-60); LDL Cholesterol Calculated 57 mg/dL (<130); Osmolality Calculated 302 mOsm/kg (285-295); Potassium 3.9 mmol/L (3.5-5.1); Sodium 144 mmol/L (136-145); Total Protein 6.6 g/dL (6.4-8.2); Triglycerides 96 mg/dL (0-150)
[2020-11-04 08:29] LABS: CRP < 0.2 mg/dL (0.0-0.9)
== END 2020-11-04 07:11 | disposition home or self-care (01) ==
LOC: CHSLAB 07:12
PROVIDERS: PCP Internal Medicine; Visit Provider Specialist
DX: R73.01 Impaired fasting glucose (principal); I10 Essential (primary) hypertension; E78.5 Hyperlipidemia, unspecified; M35.3 Polymyalgia rheumatica; I25.10 Atherosclerotic heart disease of native coronary artery without angina pectoris; R82.90 Unspecified abnormal findings in urine
CPT/HCPCS: 36415; 80053; 80061; 81001; 82043; 82550; 83036; 85025; 85055; 85652; 86140; 87086; 87088

== ENCOUNTER 2020-12-12 07:42 | Outpatient (CLI) | payer MEDICARE, BC, SELFPAY ==
--- NOTE | ~2020-12-12 | MM_ITS ---
EXAMINATION: MM screening elizabeth BI w sabina HISTORY: Screening mammogram TECHNIQUE: Craniocaudal and mediolateral oblique 3-D tomosynthesis images were obtained and synthetic 2-D images were generated. CAD analysis was submitted and interpreted. COMPARISON: 12/03/2019, 11/21/2018, 11/01/2017 bilateral digital screening mammogram examinations BREAST PARENCHYMAL COMPOSITION: The breasts are heterogeneously dense, which may obscure small masses . FINDINGS: There is no evidence of suspicious mass, calcification, or architectural distortion to sugg est malignancy in either breast. There has been no suspicious interval change. IMPRESSION: 1. No mammographic evidence of malignancy. 2. Recommend routine screening mammography in one year. BI-RADS Category 1: Negative Reviewed, dictated and finalized at location A.
== END 2020-12-12 07:43 | disposition home or self-care (01) ==
LOC: CHSIMG 07:44
PROVIDERS: PCP Internal Medicine; Visit Provider Internal Medicine
DX: Z12.31 Encounter for screening mammogram for malignant neoplasm of breast (principal)
CPT/HCPCS: 77063; 77067

== ENCOUNTER 2021-02-09 09:26 | Outpatient (CLI) | payer MEDICARE, SELFPAY ==
[2021-02-09 09:54] LABS: Basophils Absolute Auto 0.01 K/mm3 (0.00-0.10); Basophils Percent Auto 0.2 % (0.0-1.0); Eosinophils Absolute Auto 0.06 K/mm3 (0.02-0.50); Eosinophils Percent Auto 1.1 % (1.0-6.0); Hematocrit 49.6 % (35.0-42.0); Hemoglobin 15.9 g/dL (11.7-13.8); Immature Granulocyte Absolute 0.05 K/mm3 (0.00-0.00); Immature Granulocyte Percent A 0.9 % (0.0-0.0); Immature Platelet Fraction Pct 3.7 % (1.0-7.0); Lymphocytes Absolute Auto 1.84 K/mm3 (1.10-4.50); Lymphocytes Percent Auto 34.3 % (18.0-42.0); Mean Corpuscular HGB Conc 32.1 g/dL (32.0-36.0); Mean Corpuscular Hemoglobin 30.9 pg (27.0-31.0); Mean Corpuscular Volume 96.5 fL (78.0-102.0); Mean Platelet Volume 10.8 fl (9.2-11.8); Monocytes Absolute Auto 0.54 K/mm3 (0.10-0.90); Monocytes Percent Auto 10.1 % (2.0-11.0); Neutrophils Absolute Auto 2.9 K/mm3 (1.7-7.2); Neutrophils Percent Auto 53.4 % (50.0-70.0); Platelet Count Result 133 K/mm3 (150-420); Red Blood Count 5.14 M/mm3 (4.20-5.40); White Blood Count 5.4 K/mm3 (4.8-10.8)
[2021-02-09 10:28] LABS: Alanine Aminotransferase 62 U/L (14-59); Alkaline Phosphatase 80 U/L (46-116); Anion Gap 6 mmol/L (8-16); Aspartate Amino Transferase 50 U/L (15-37); Bilirubin,Total 1.1 mg/dL (0.00-1.00); Blood Urea Nitrogen 23 mg/dL (7-18); Calcium 10.3 mg/dL (8.5-10.1); Carbon Dioxide 33 mmol/L (21-32); Chloride 104 mmol/L (98-108); Estimated Glomerular Filt Rate 55; Glucose 96 mg/dL (70-99); Osmolality Calculated 299 mOsm/kg (285-295); Potassium 4.6 mmol/L (3.5-5.1); Sodium 143 mmol/L (136-145); Total Protein 6.8 g/dL (6.4-8.2)
[2021-02-09 10:39] LABS: CRP < 0.2 mg/dL (0.0-0.9)
[2021-02-09 10:44] LABS: Erythrocyte Sedimentation Rate 3 mm/hr (0-20)
== END 2021-02-09 09:27 | disposition home or self-care (01) ==
LOC: CHSLAB 09:28
PROVIDERS: PCP Internal Medicine; Visit Provider Internal Medicine
DX: M35.3 Polymyalgia rheumatica (principal); D69.6 Thrombocytopenia, unspecified
CPT/HCPCS: 36415; 80053; 85025; 85055; 85652; 86140

== ENCOUNTER 2021-02-27 08:26 | Outpatient (CLI) | payer MEDICARE, BC, SELFPAY ==
--- NOTE | ~2021-02-27 | XR_ITS ---
EXAMINATION: XR foot LT min 3V DATE: 02/27/2021 08:53 INDICATION: Left foot pain. Plantar fasciitis. TECHNIQUE: Dorsoplantar, two oblique and lateral views of the left foot were obtained. COMPARISON: None. FINDINGS: Alignment is normal. No fracture. Mild polyarticular osteoarthritis at several tarsal metatarsal, met atarsophalangeal and interphalangeal joints. Small plantar calcaneal spur. Soft tissues are unremarka ble. No left ankle joint effusion. IMPRESSION: 1. Small plantar calcaneal spur. 2. Mild polyarticular osteoarthritis in the mid and forefoot. Reviewed, dictated and finalized at location B. 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
== END 2021-02-27 08:27 | disposition home or self-care (01) ==
LOC: CHSIMG 08:28
PROVIDERS: PCP Internal Medicine; Visit Provider Orthopaedic Surgery
DX: M79.672 Pain in left foot (principal)
CPT/HCPCS: 73630

== ENCOUNTER → 2021-03-07 07:36 | Outpatient (CLI) | payer MEDICARE, BC, SELFPAY ==
--- NOTE | ~2021-03-07 | MR_ITS ---
EXAMINATION: MR lumbar spine wo con EXAM DATE: 03/07/2021 08:21 INDICATION: M47.27 - Other spondylosis with radiculopathy, lumbosacral... spondylosis with radiculopa thy. TECHNIQUE: Multi-sequential, multiplanar MR images of the lumbar spine were obtained without contrast . Sagittal T1, T2, T2 fat saturation images. Axial T2 weighted images. Comparison is made to prior examination from 07/19/2018. FINDINGS: Image portion of a right renal lesion is consistent with cyst measuring about 3 cm. There a re no suspicious marrow signal abnormalities. The conus medullaris terminates at the L1/2 level and h as normal signal intensity and morphology. There is 5 mm retrolisthesis L5 on S1. The vertebral evi s are otherwise aligned. Moderate disc disease L4-5 and L5-S1, mild at L2-3. There is a 1.4 cm left a drenal gland lesion statistically most likely adenoma. This is unchanged in size correlating to a CT chest from 2018. Level by level evaluation: T12-L1: Disc does not extend beyond the endplate margin. Facet arthropathy: Mild. Neural foraminal stenosis: No stenosis. Central canal stenosis: No stenosis. L1-L2: Disc does not extend beyond the endplate margin. Facet arthropathy: Mild. Neural foraminal stenosis: No stenosis. Central canal stenosis: No stenosis. L2-L3: Disc does not extend beyond the endplate margin. Facet arthropathy: Mild to moderate . Ligamentum flavum enlargement. Neural foraminal stenosis: Mild left. Central canal stenosis: Mild. L3-L4: There is a mild to moderate diffuse disc bulge. Facet arthropathy: Moderate . Ligamentum flavum enlargement. Neural foraminal stenosis: Mild to moderate bilateral. Central canal stenosis: Mild to moderate. L4-L5: There is a moderate to large diffuse disc bulge. Superimposed tiny right central extrusion, c ephalad migration. Facet arthropathy: Moderate . Ligamentum flavum enlargement. Neural foraminal stenosis: Moderate left, mild to moderate right. Central canal stenosis: Moderate to severe. L5-S1: There is a moderate diffuse disc bulge. Facet arthropathy: Mild to moderate. Neural foraminal stenosis: Mild to moderate bilateral. Central canal stenosis: Mild. There is been interval progression in the spondylosis compared to 2019, progression the amount of marvin tral canal stenosis at L4-5, and progression in the disc disease. IMPRESSION: 1. Moderate to severe L4-5 central canal stenosis. 2. Interval progression spondylosis as detailed above. 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
== END ==
PROVIDERS: PCP Internal Medicine; Visit Provider Orthopaedic Surgery
DX: M47.27 Other spondylosis with radiculopathy, lumbosacral region (principal); M48.061 Spinal stenosis, lumbar region without neurogenic claudication
CPT/HCPCS: 72148

== ENCOUNTER 2021-03-24 09:17 | Outpatient (CLI) | payer MEDICARE, BC, SELFPAY ==
--- NOTE | ~2021-03-24 | US_ITS ---
EXAMINATION: US carotid duplex BI DATE: 03/24/2021 09:38 INDICATION: CVA TECHNIQUE: Grayscale, color Doppler, and pulsed Doppler images of the cervical carotid arteries were obtained. The degree of vessel stenosis is placed in one of the following categories: normal, <50%, 5 0-69%, >=70% but less than near-occlusion, near-occlusion, or total occlusion. Note that percent sten osis relative to normal distal artery lumen diameter is indirectly measured from velocity measurement s as described by Gilberto, et al. Radiology 2003; 229:340-346. Notes: Normal: Peak systolic velocity <125 centimeters/sec and no plaque <50%. Peak systolic velocity <125 ( EDV <40; ICA/CCA PSV ratio <2.0; used these factors only a tandem lesions or low cardiac output or co ntralateral disease) 50-69 %: PSV 125-230 (EDV 40-100; ratio 2-4) >= 70% but less than near occlusion: PSV greater than 230 (EDV > 100; ratio> 4.0) Near Occlusion: PSV that is variable; markedly narrowed lumen Occlusion: Absent flow on color/spectral Doppler and no lumen on alvarado scale. COMPARISON: None. FINDINGS: RIGHT: The right common carotid artery (CCA) peak systolic velocity (PSV) is 70 cm/s. The right internal car otid artery (ICA) PSV is 48 cm/s. The right ICA end-diastolic velocity (EDV) is 12 cm/s. The right IC A/CCA PSV ratio is 0.7. The external carotid artery (ECA) PSV is 89 cm/s. There is antegrade flow in the right vertebral artery. LEFT: The left CCA PSV is 76 cm/s. The left ICA PSV is 72 cm/s. The left ICA EDV is 22 cm/s. The left ICA/C CA PSV ratio is 0.9. The ECA PSV is 85 cm/s. There is antegrade flow in the left vertebral artery. IMPRESSION: 1. Less than 50% stenosis in the right internal carotid artery by sonographic criteria. 2. Less than 50% stenosis in the left internal carotid artery by sonographic criteria. Reviewed, dictated and finalized at location B. GRADER IMPRESSION: 1. Less than 50% stenosis in the right internal carotid artery by sonographic erica horne. 2. Less than 50% stenosis in the left internal carotid artery by sonographic kashif ac.
== END 2021-03-24 09:18 | disposition home or self-care (01) ==
LOC: CHSIMG 09:18
PROVIDERS: PCP Internal Medicine; Visit Provider Internal Medicine
DX: I63.9 Cerebral infarction, unspecified (principal)
CPT/HCPCS: 93880

== ENCOUNTER → 2021-03-28 09:08 | Outpatient (CLI) | payer MEDICARE, BC, SELFPAY ==
--- NOTE | ~2021-03-28 | MR_ITS ---
. EXAMINATION: MR brain/brain stem wo/w con DATE: 03/28/2021 10:11 INDICATION: Left-sided facial numbness. TECHNIQUE: Magnetic resonance imaging (MRI) of the brain and brainstem was performed without and with 14 mL MultiHance intravenous contrast. Sequences included sagittal and axial T1-weighted FSE, axial diffusion-weighted FS EPI, axial T2*-weighted GRE, axial T2-weighted FLAIR Propeller, and axial T2-we ighted Propeller. Postcontrast sequences included axial and coronal T1-weighted FSE. Apparent diffusi on coefficient (ADC) maps were created. COMPARISON: Brain MRI 11/07/2016 FINDINGS: There are scattered areas of nonspecific increased T2-weighted signal intensity in the cere bral white matter. There is no intracranial hemorrhage, acute infarction, or abnormal intracranial ma ss lesion. The ventricles are normal in size. The mastoid air cells are normal. There are likely diaz ges of ocular lens replacement surgeries. There is mild mucosal containing in right maxillary sinus. IMPRESSION: 1. Stable moderate nonspecific cerebral white matter disease, which likely represents chronic small v essel ischemic disease. 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 Stable moderate nonspecific cerebral white matter disease, which likely repr esents chronic small vessel ischemic disease.
[2021-03-28 09:31] LABS: Estimated Glomerular Filt Rate 53
== END ==
PROVIDERS: PCP Internal Medicine; Visit Provider Internal Medicine
DX: I63.9 Cerebral infarction, unspecified (principal); R90.82 White matter disease, unspecified
CPT/HCPCS: 70553; A9577

== ENCOUNTER 2021-05-23 07:12 | Outpatient (CLI) | payer MEDICARE, SELFPAY ==
[2021-05-23 07:28] LABS: Basophils Absolute Auto 0.02 K/mm3 (0.00-0.10); Basophils Percent Auto 0.4 % (0.0-1.0); Eosinophils Absolute Auto 0.04 K/mm3 (0.02-0.50); Eosinophils Percent Auto 0.9 % (1.0-6.0); Hematocrit 49.7 % (35.0-42.0); Hemoglobin 16.3 g/dL (11.7-13.8); Immature Granulocyte Absolute 0.06 K/mm3 (0.00-0.00); Immature Granulocyte Percent A 1.3 % (0.0-0.0); Immature Platelet Fraction Pct 3.5 % (1.0-7.0); Lymphocytes Absolute Auto 1.84 K/mm3 (1.10-4.50); Mean Corpuscular HGB Conc 32.8 g/dL (32.0-36.0); Mean Corpuscular Hemoglobin 31.1 pg (27.0-31.0); Mean Corpuscular Volume 94.8 fL (78.0-102.0); Mean Platelet Volume 10.9 fl (9.2-11.8); Monocytes Absolute Auto 0.45 K/mm3 (0.10-0.90); Neutrophils Absolute Auto 2.1 K/mm3 (1.7-7.2); Neutrophils Percent Auto 46.4 % (50.0-70.0); Platelet Count Result 114 K/mm3 (150-420); Red Blood Count 5.24 M/mm3 (4.20-5.40); Red Cell Distribution Width 11.9 % (11.6-14.4); White Blood Count 4.5 K/mm3 (4.8-10.8)
[2021-05-23 07:41] LABS: Add Urine Microscopic? YES; Appearance Urine Clear (Clear); Bilirubin Urine Negative (Negative); Blood Urine Negative (Negative); Color Urine Light Yellow (Yellow); Glucose Urine UA Negative (Negative); Ketones Urine Negative (Negative); Leukocyte Esterase Ur 1+ (Negative); Nitrate Urine Negative (Negative); Protein Urine Negative (Negative); Specific Grav Ur 1.025 (1.010-1.020); Urobilinogen Urine 0.2 mg/dL (0.2-1.0)
[2021-05-23 08:01] LABS: Hemoglobin A1C 6.4 % (<5.7)
[2021-05-23 08:12] LABS: RBC Urine None seen /hpf (0-2); Squamous Epithelial Cell Urine Few /hpf (Few)
[2021-05-23 08:13] LABS: Bacteria Urine 1+ /hpf
[2021-05-23 08:34] LABS: Alanine Aminotransferase 74 U/L (14-59); Albumin Level 4.1 g/dL (3.4-5.0); Alkaline Phosphatase 86 U/L (46-116); Anion Gap 8 mmol/L (8-16); Aspartate Amino Transferase 38 U/L (15-37); Bilirubin,Total 0.8 mg/dL (0.00-1.00); Blood Urea Nitrogen 26 mg/dL (7-18); Calcium 9.7 mg/dL (8.5-10.1); Carbon Dioxide 29 mmol/L (21-32); Chloride 104 mmol/L (98-108); Cholesterol 183 mg/dL (0-200); Creatine Kinase 71 U/L (26-192); Estimated Glomerular Filt Rate 54; Free T3 2.98 pg/mL (2.18-3.98); Free T4 Free Thyroxine 1.08 ng/dL (0.76-1.46); Glucose 114 mg/dL (70-99); HDL Direct 68 mg/dL (40-60); LDL Cholesterol Calculated 86 mg/dL (<130); Osmolality Calculated 297 mOsm/kg (285-295); Potassium 3.8 mmol/L (3.5-5.1); Sodium 141 mmol/L (136-145); Thyroid Stimulating Hormone 1.79 uIU/mL (0.36-3.74); Total Protein 6.7 g/dL (6.4-8.2); Triglycerides 144 mg/dL (0-150)
[2021-05-23 08:36] LABS: CRP < 0.5 mg/dL (0.0-0.9)
[2021-05-23 09:03] LABS: Erythrocyte Sedimentation Rate 2 mm/hr (0-30)
[2021-05-25 15:06] LABS: Vitamin D 25 Hydroxy 35 ng/mL (30-100)
== END 2021-05-23 07:13 | disposition home or self-care (01) ==
LOC: CHSLAB 07:14
PROVIDERS: PCP Internal Medicine; Visit Provider Internal Medicine
DX: E78.2 Mixed hyperlipidemia (principal); D69.6 Thrombocytopenia, unspecified; M35.3 Polymyalgia rheumatica; I10 Essential (primary) hypertension; E03.4 Atrophy of thyroid (acquired); M81.0 Age-related osteoporosis without current pathological fracture; M15.0 Primary generalized (osteo)arthritis; R73.01 Impaired fasting glucose
CPT/HCPCS: 36415; 80053; 80061; 81001; 82306; 82550; 83036; 84439; 84443; 84481; 85025; 85055; 85652; 86140

== ENCOUNTER 2021-06-15 11:30 | Outpatient (CLI) | payer MEDICARE, BC, SELFPAY ==
--- NOTE | ~2021-06-15 | CT_ITS ---
EXAMINATION: CT brain wo con EXAM DATE: 06/15/2021 11:48 INDICATION: Concussion, persistent headache. Hit back of head one week ago.. TECHNIQUE: Spiral CT of the head was performed without contrast. Axial, coronal and sagittal images were reviewed. The dose-length product (DLP) for this examination was 605.33 mGy-cm. The exposure w as tailored according to patient size, and iterative reconstruction (ASIR) was used as additional dos e reduction technique. Comparison is made to prior examination from 07/02/2011. FINDINGS: There is no acute intraparenchymal hemorrhage. No evidence of intraparenchymal brain mass lesion. No evidence of acute infarction. Please note that initial head CT has limited sensitivity f or small or acute infarctions. There is moderate periventricular and subcortical hypodensity, nonspec ific but probably related to small vessel ischemic disease. There is mild prominence of the sulci a nd ventricles related to cerebral atrophy. There is intracranial carotid arteriosclerosis. There a re no extra-axial collections. There is no mass effect or midline shift. The orbits are unremarkabl e. Soft tissue is unremarkable. The visualized sinuses and mastoid air cells are well aerated. IMPRESSION: 1. No acute intracranial findings. 2. Chronic age related findings. 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
== END 2021-06-15 11:31 | disposition home or self-care (01) ==
LOC: CHSIMG 11:33
PROVIDERS: PCP Internal Medicine; Visit Provider Internal Medicine
DX: S06.0X9A Concussion with loss of consciousness of unspecified duration, initial encounter (principal)
CPT/HCPCS: 70450

== ENCOUNTER 2021-08-03 16:26 | Outpatient (CLI) | payer MEDICARE, BC, SELFPAY ==
--- NOTE | ~2021-08-03 | CT_ITS ---
EXAMINATION: CT brain wo con DATE: 08/03/2021 16:50 INDICATION: Postconcussion headache TECHNIQUE: Computed tomography (CT) of the head was performed without intravenous contrast. The dose- length product was 681.00 mGy-cm. Automated exposure control and iterative reconstruction technique w ere employed. COMPARISON: CT dated 06/15/2021 FINDINGS: Generalized atrophy. No acute intracranial hemorrhage, infarction, mass or mass effect. No ventriculomegaly or midline shift. There are scattered mild periventricular and subcortical white mat ter changes, most likely related to small vessel ischemic disease (microangiopathy). There is chronic right sphenoid sinus disease. Mastoids are pneumatized. No depressed skull fractures. IMPRESSION: 1. No acute intracranial abnormality. 2: Chronic age-related findings. Reviewed, dictated and finalized at location B.
== END 2021-08-03 16:27 | disposition home or self-care (01) ==
LOC: CHSIMG 16:29
PROVIDERS: PCP Internal Medicine; Visit Provider Internal Medicine
DX: G44.329 Chronic post-traumatic headache, not intractable (principal)
CPT/HCPCS: 70450

== ENCOUNTER 2021-09-09 07:10 | Outpatient (CLI) | payer MEDICARE, SELFPAY ==
[2021-09-09 07:31] LABS: Basophils Absolute Auto 0.01 K/mm3 (0.00-0.10); Basophils Percent Auto 0.2 % (0.0-1.0); Eosinophils Absolute Auto 0.04 K/mm3 (0.02-0.50); Eosinophils Percent Auto 0.9 % (1.0-6.0); Hematocrit 49.2 % (35.0-42.0); Hemoglobin 16.3 g/dL (11.7-13.8); Immature Granulocyte Absolute 0.06 K/mm3 (0.00-0.00); Immature Granulocyte Percent A 1.3 % (0.0-0.0); Immature Platelet Fraction Pct 4.3 % (1.0-7.0); Lymphocytes Absolute Auto 2.03 K/mm3 (1.10-4.50); Lymphocytes Percent Auto 44.4 % (18.0-42.0); Mean Corpuscular HGB Conc 33.1 g/dL (32.0-36.0); Mean Corpuscular Hemoglobin 31.3 pg (27.0-31.0); Mean Corpuscular Volume 94.4 fL (78.0-102.0); Mean Platelet Volume 10.9 fl (9.2-11.8); Monocytes Absolute Auto 0.39 K/mm3 (0.10-0.90); Monocytes Percent Auto 8.5 % (2.0-11.0); Neutrophils Percent Auto 44.7 % (50.0-70.0); Platelet Count Result 112 K/mm3 (150-420); Red Blood Count 5.21 M/mm3 (4.20-5.40); Red Cell Distribution Width 11.7 % (11.6-14.4); White Blood Count 4.6 K/mm3 (4.8-10.8)
[2021-09-09 07:45] LABS: Anion Gap 7 mmol/L (8-16); Blood Urea Nitrogen 27 mg/dL (7-18); Carbon Dioxide 28 mmol/L (21-32); Chloride 105 mmol/L (98-108); Estimated Glomerular Filt Rate 52; Glucose 120 mg/dL (70-99); Hemoglobin A1C 6.1 % (<5.7); Osmolality Calculated 296 mOsm/kg (285-295); Sodium 140 mmol/L (136-145)
== END 2021-09-09 07:11 | disposition home or self-care (01) ==
LOC: CHSLAB 07:12
PROVIDERS: PCP Internal Medicine; Visit Provider Internal Medicine
DX: R73.01 Impaired fasting glucose (principal); D69.6 Thrombocytopenia, unspecified
CPT/HCPCS: 36415; 80048; 83036; 85025; 85055

== ENCOUNTER 2021-10-19 10:17 | Outpatient (CLI) | payer MEDICARE, SELFPAY ==
--- NOTE | ~2021-10-19 | CT_ITS ---
EXAMINATION: CT abdomen pelvis w con INDICATION: Acute left lower quadrant pain TECHNIQUE: Computed tomographic images of the abdomen and pelvis were obtained after the administrati on of 100 cc of Omnipaque 350 intravenous contrast. The dose-length product (DLP) was 449.65 mGy-cm. Automated exposure control and iterative reconstruction technique were employed. COMPARISON: 11/15/2010 FINDINGS: Minimal dependent atelectasis is present in the lung bases. The heart size is normal. The l iver is diffusely low in attenuation when compared with the spleen, consistent with hepatic steatosis . The gallbladder is surgically absent. There is mild enlargement of the common bile duct and central intrahepatic ducts which is likely due to post cholecystectomy state. 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 There is a 3.2 cm cyst of rig ht kidney. A 6 mm hemorrhagic cyst is also noted in the right kidney. The left kidney is unremarkable . No pathologically enlarged abdominal or pelvic lymph nodes are identified. There is no free intrape ritoneal gas or evidence of bowel obstruction. There is severe lumbar spondylosis. IMPRESSION: 1. No CT correlate for the patient's symptoms. Reviewed, dictated and finalized at location B.
[2021-10-19 10:33] LABS: Basophils Absolute Auto 0.02 K/mm3 (0.00-0.10); Basophils Percent Auto 0.4 % (0.0-1.0); Eosinophils Absolute Auto 0.01 K/mm3 (0.02-0.50); Eosinophils Percent Auto 0.2 % (1.0-6.0); Hemoglobin 15.3 g/dL (11.7-13.8); Immature Granulocyte Absolute 0.11 K/mm3 (0.00-0.00); Immature Platelet Fraction Pct 3.4 % (1.0-7.0); Lymphocytes Absolute Auto 1.52 K/mm3 (1.10-4.50); Mean Corpuscular HGB Conc 32.6 g/dL (32.0-36.0); Mean Corpuscular Hemoglobin 30.7 pg (27.0-31.0); Mean Corpuscular Volume 94.4 fL (78.0-102.0); Mean Platelet Volume 10.3 fl (9.2-11.8); Monocytes Percent Auto 7.4 % (2.0-11.0); Neutrophils Absolute Auto 3.4 K/mm3 (1.7-7.2); Platelet Count Result 135 K/mm3 (150-420); Red Blood Count 4.98 M/mm3 (4.20-5.40); Red Cell Distribution Width 11.9 % (11.6-14.4); White Blood Count 5.4 K/mm3 (4.8-10.8)
[2021-10-19 10:55] LABS: Alanine Aminotransferase 57 U/L (14-59); Albumin Level 4.1 g/dL (3.4-5.0); Alkaline Phosphatase 80 U/L (46-116); Anion Gap 6 mmol/L (8-16); Aspartate Amino Transferase 40 U/L (15-37); Bilirubin,Total 0.8 mg/dL (0.00-1.00); Blood Urea Nitrogen 27 mg/dL (7-18); Calcium 10.6 mg/dL (8.5-10.1); Carbon Dioxide 30 mmol/L (21-32); Chloride 103 mmol/L (98-108); Estimated Glomerular Filt Rate 48; Glucose 112 mg/dL (70-99); Osmolality Calculated 294 mOsm/kg (285-295); Potassium 4.1 mmol/L (3.5-5.1); Sodium 139 mmol/L (136-145); Total Protein 7.1 g/dL (6.4-8.2)
== END 2021-10-19 10:18 | disposition home or self-care (01) ==
LOC: CHSLAB 10:19
PROVIDERS: PCP Internal Medicine; Visit Provider Internal Medicine
DX: R10.32 Left lower quadrant pain (principal); R19.7 Diarrhea, unspecified
CPT/HCPCS: 36415; 74177; 80053; 85025; 85055; 87045; 87427; Q9967

== ENCOUNTER 2021-10-20 07:43 | Outpatient (CLI) | payer MEDICARE, SELFPAY | END 2021-10-20 07:44 | disposition home or self-care (01) | LOC: CHSLAB 07:45 | PROVIDERS: PCP Internal Medicine; Visit Provider Internal Medicine | DX: R10.32 Left lower quadrant pain (principal); R19.7 Diarrhea, unspecified | CPT/HCPCS: 87324 ==

== ENCOUNTER 2021-11-27 07:07 | Outpatient (CLI) | payer MEDICARE, SELFPAY ==
[2021-11-27 07:23] LABS: Add Urine Microscopic? YES; Appearance Urine Clear (Clear); Basophils Absolute Auto 0.02 K/mm3 (0.00-0.10); Basophils Percent Auto 0.5 % (0.0-1.0); Bilirubin Urine Negative (Negative); Blood Urine Negative (Negative); Color Urine Yellow (Yellow); Eosinophils Absolute Auto 0.04 K/mm3 (0.02-0.50); Eosinophils Percent Auto 0.9 % (1.0-6.0); Glucose Urine UA Negative (Negative); Hemoglobin 15.8 g/dL (11.7-13.8); Immature Granulocyte Absolute 0.05 K/mm3 (0.00-0.00); Immature Granulocyte Percent A 1.2 % (0.0-0.0); Ketones Urine Negative (Negative); Leukocyte Esterase Ur 1+ (Negative); Lymphocytes Absolute Auto 2.01 K/mm3 (1.10-4.50); Lymphocytes Percent Auto 47.3 % (18.0-42.0); Mean Corpuscular HGB Conc 32.9 g/dL (32.0-36.0); Mean Corpuscular Hemoglobin 31.1 pg (27.0-31.0); Mean Corpuscular Volume 94.5 fL (78.0-102.0); Mean Platelet Volume 10.9 fl (9.2-11.8); Monocytes Absolute Auto 0.39 K/mm3 (0.10-0.90); Monocytes Percent Auto 9.2 % (2.0-11.0); Neutrophils Absolute Auto 1.7 K/mm3 (1.7-7.2); Neutrophils Percent Auto 40.9 % (50.0-70.0); Nitrate Urine Negative (Negative); Platelet Count Result 111 K/mm3 (150-420); Protein Urine Negative (Negative); Red Blood Count 5.08 M/mm3 (4.20-5.40); Red Cell Distribution Width 11.8 % (11.6-14.4); Specific Grav Ur 1.025 (1.010-1.020); Urobilinogen Urine 0.2 mg/dL (0.2-1.0); White Blood Count 4.3 K/mm3 (4.8-10.8)
[2021-11-27 07:28] LABS: Bacteria Urine Trace /hpf; RBC Urine None seen /hpf (0-2); Squamous Epithelial Cell Urine Few /hpf (Few); WBC Urine 0-3 /hpf (0-3)
[2021-11-27 07:31] LABS: Hemoglobin A1C 6.2 % (<5.7)
[2021-11-27 08:09] LABS: Alanine Aminotransferase 51 U/L (14-59); Alkaline Phosphatase 84 U/L (46-116); Anion Gap 10 mmol/L (8-16); Aspartate Amino Transferase 33 U/L (15-37); Blood Urea Nitrogen 32 mg/dL (7-18); Carbon Dioxide 28 mmol/L (21-32); Chloride 105 mmol/L (98-108); Cholesterol 171 mg/dL (0-200); Creatine Kinase 69 U/L (26-192); Estimated Glomerular Filt Rate 49; Free T3 2.89 pg/mL (2.18-3.98); Free T4 Free Thyroxine 1.14 ng/dL (0.76-1.46); Glucose 131 mg/dL (70-99); HDL Direct 66 mg/dL (40-60); LDL Cholesterol Calculated 78 mg/dL (<130); Osmolality Calculated 304 mOsm/kg (285-295); Potassium 3.9 mmol/L (3.5-5.1); Sodium 143 mmol/L (136-145); Thyroid Stimulating Hormone 1.06 uIU/mL (0.36-3.74); Triglycerides 134 mg/dL (0-150); Vitamin B12 622 pg/mL (193-986)
[2021-11-27 08:12] LABS: CRP < 0.2 mg/dL (0.0-0.9)
[2021-11-27 08:26] LABS: Erythrocyte Sedimentation Rate 2 mm/hr (0-30)
[2021-11-30 14:26] LABS: Vitamin D 25 Hydroxy 38 ng/mL (30-100)
== END 2021-11-27 07:08 | disposition home or self-care (01) ==
LOC: CHSLAB 07:09
PROVIDERS: PCP Internal Medicine; Visit Provider Internal Medicine
DX: K76.0 Fatty (change of) liver, not elsewhere classified (principal); E78.2 Mixed hyperlipidemia; M81.0 Age-related osteoporosis without current pathological fracture; I12.9 Hypertensive chronic kidney disease with stage 1 through stage 4 chronic kidney disease, or unspecified chronic kidney disease; N18.1 Chronic kidney disease, stage 1; R73.01 Impaired fasting glucose; R20.0 Anesthesia of skin; M35.3 Polymyalgia rheumatica
CPT/HCPCS: 36415; 80053; 80061; 81001; 82306; 82550; 82607; 83036; 84439; 84443; 84481; 85025; 85652; 86140

== ENCOUNTER → 2022-01-22 08:48 | Outpatient (CLI) | payer MEDICARE, BC, SELFPAY ==
--- NOTE | ~2022-01-22 | MR_ITS ---
EXAMINATION: MR lumbar spine wo con DATE: 01/22/2022 09:42 INDICATION: Low back pain. Other intervertebral disc displacement, lumbar region. TECHNIQUE: Magnetic resonance imaging (MRI) of the lumbar spine was performed without intravenous con trast. COMPARISON: Lumbar spine MRI 03/07/2021 FINDINGS: There is 3 degrees levocurvature of lumbar spine. There is 3 mm retrolisthesis of L5 on S1. There is a Schmorl's node in superior endplate of L3. There is moderately decreased disc height at L 4-L5 and severely decreased disc height at L5-S1 with endplate remodeling. There is ligamentum flavum hypertrophy at the disc levels from L1-L2 through L4-L5. The distal spinal cord signal intensity is normal. The conus medullaris is at L1. There is a 3.3 cm cyst in right kidney. The following disc lev els are specifically discussed: L1-L2: The disc does not extend beyond the endplate margin. There is mild bilateral facet joint osteo arthritis. There is no neural foraminal stenosis. There is no central canal stenosis. L2-L3: The disc is bulging. There is severe bilateral facet joint osteoarthritis. There is mild bilat eral neural foraminal stenosis. There is mild central canal stenosis. L3-L4: The disc is bulging and has an annular fissure. There is moderate bilateral facet joint osteoa rthritis. There is moderate bilateral neural foraminal stenosis. There is mild central canal stenosis . L4-L5: The disc is bulging and has an annular fissure. There is severe bilateral facet joint osteoart hritis. There is moderate bilateral neural foraminal stenosis. There is severe central canal stenosis . L5-S1: The disc is bulging. There is moderate bilateral facet joint osteoarthritis. There is moderate bilateral neural foraminal stenosis. There is mild central canal stenosis. IMPRESSION: 1. Severe lumbar spondylosis, stable from 03/07/2021. 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 [employer]
== END ==
PROVIDERS: PCP Internal Medicine; Visit Provider Neurological Surgery
DX: M51.26 Other intervertebral disc displacement, lumbar region (principal); M48.061 Spinal stenosis, lumbar region without neurogenic claudication
CPT/HCPCS: 72148

== ENCOUNTER 2022-04-10 07:02 | Outpatient (CLI) | payer MEDICARE, BC, SELFPAY ==
[2022-04-10 07:18] LABS: Hematocrit 48.9 % (35.0-42.0); Hemoglobin 15.9 g/dL (11.7-13.8); Mean Corpuscular HGB Conc 32.5 g/dL (32.0-36.0); Mean Corpuscular Hemoglobin 29.8 pg (27.0-31.0); Mean Corpuscular Volume 91.6 fL (78.0-102.0); Mean Platelet Volume 10.7 fl (9.2-11.8); Platelet Count Result 100 K/mm3 (150-420); Red Blood Count 5.34 M/mm3 (4.20-5.40); Red Cell Distribution Width 11.8 % (11.6-14.4)
--- NOTE | 2022-04-10 07:19 | ECG_ITS ---
Measurements Intervals [place] Rate: 72 P: 65 MD: 163 QRS: -4 QRSD: 94 T: 62 QT: 386 QTc: 424 Interpretive Statements SINUS RHYTHM POSSIBLE RIGHT VENTRICULAR CONDUCTION DELAY [RSR (QR) IN V1/V2] POSSIBLE INFERIOR MYOCARDIAL INFARCTION , OF INDETERMINATE AGE WITH POSTERIOR EXTENSION [30 ms Q WAVE IN II/aVFPROMINENT R WAV COMPARED TO ECG 06/24/2019 11:00:35 NO SIGNIFICANT CHANGES Electronically Signed On 04-10-2022 16:31:43 MACHINE TACK PULLER by Velma Ames M.D.
[2022-04-10 07:32] LABS: Partial Thromboplastin Time 26.3 SEC (23.90-30.70)
[2022-04-10 07:36] LABS: Add Urine Microscopic? NO; Appearance Urine Clear (Clear); Bilirubin Urine Negative (Negative); Blood Urine Negative (Negative); Color Urine Light Yellow (Yellow); Glucose Urine UA Negative (Negative); Ketones Urine Negative (Negative); Leukocyte Esterase Ur Negative (Negative); Nitrate Urine Negative (Negative); Protein Urine Negative (Negative); Specific Grav Ur 1.025 (1.010-1.020); Urobilinogen Urine 0.2 mg/dL (0.2-1.0); pH Urine 5.5 (5.0-8.0)
[2022-04-10 08:17] LABS: Anion Gap 8 mmol/L (8-16); Blood Urea Nitrogen 25 mg/dL (7-18); Calcium 9.9 mg/dL (8.5-10.1); Carbon Dioxide 28 mmol/L (21-32); Chloride 103 mmol/L (98-108); Estimated Glomerular Filt Rate 52; Glucose 122 mg/dL (70-99); Osmolality Calculated 293 mOsm/kg (285-295); Potassium 3.9 mmol/L (3.5-5.1); Sodium 139 mmol/L (136-145)
== END 2022-04-10 07:03 | disposition home or self-care (01) ==
LOC: CHSLAB 07:04
PROVIDERS: PCP Internal Medicine; Visit Provider Neurological Surgery
DX: Z01.818 Encounter for other preprocedural examination (principal)
CPT/HCPCS: 36415; 80048; 81003; 85027; 85730; 86900; 86901; 93005

== ENCOUNTER 2022-05-08 00:23 | Day surgery (SDC) | payer MEDICARE, BC, SELFPAY ==
[2022-05-03 12:57] VITALS: BMI 26.6
--- NOTE | 2022-05-03 13:08 | PC.NURSE ---
Report to the Outpatient Waiting Room, entrance under the green pavilion located off [facility], at time ___1000____ on date __05/08/22 . Planned Procedure Time: ___1200 . Time changes happen often and if your time is changed the preop area will call you the afternoon before. - You and your visitor will be asked to self-screen and do not enter if you have any COVID symptoms. - Only one visitor is requested with a max of two and NO children visitors are allowed at this time. - The patient visitor may be requested to leave or wait in car when not with patient due to distancing restrictions. - A mask is optional within the hospital at this time. Patients may have clear liquids (water, carbonated beverages, clear teas, apple juice) until 3 hours (0900 AM) prior to surgery with a maximum of 20 ounces. - No food from midnight until time of surgery - Infants may have breast milk until 4 hours before surgery, infant formula 6 hours prior to surgery. - Children will be allowed to drink immediately following surgery. If applicable, please bring a bottle or sippy cup to assist with drinking. Juice, water, soda, and popsicles are readily available. For infants on formula, please bring formula the day of surgery. Pacifiers are allowed. Take the following medications with a SIP of water the morning of surgery: _METOPROLOL, ALPHAGAN EYE DROPS_ DO NOT STOP ANY OF YOUR OTHER PRESCRIPTION MEDICATIONS PRIOR TO SURGERY ?EXCEPT THE FOLLOWING Medications to discontinue per physician _ASPIRIN PT STATES 7 DAYS PRIOR TO SURGERY STOPPED 05/01/22__ Date to take last dose Please no make-up, nail kyrgyz, hairspray, perfume, deodorant, or body powder the day of surgery. No jewelry (including any body piercings) or valuables the day of surgery, leave them at home. Please take a shower or bath the night before, or the morning of, surgery with an antibacterial soap. Wear comfortable, loose fitting clothing. Children are encouraged to wear pajamas. - Jewelry must be removed prior to entering the operating room. Rings and piercings that are not removed may be cut off. - The hospital will not accept responsibility for valuables. - Please leave all valuables, including medications, at home the day of surgery. If you are going home after surgery, a licensed dump truck driver off highway must drive you home. - NO public transportation without another adult if you receive anesthesia. - We recommend that an adult stay with you for 24 hours following discharge. - We also recommend that you do not drive, make important decision, drink alcoholic beverages, or take any drugs that were not prescribed by your health care provider for at least 24 hours after your discharge time. For Pediatric surgeries, we recommend two adults accompany the child home. Follow any additional instructions given to you from your surgeon. If you or anyone in your household have experienced Covid symptoms in the past week, please notify your surgeon or the nurse liaison at the phone number below for possible testing. Telephone instructions given to ____PATIENT and asked if any additional questions and then verbalized understanding. Patient advised to call surgeon office or pre surgery nurse liaison [phone] if any additional questions.
[2022-05-08] VITALS (10 sets, daily range): BP systolic 105–148; BP diastolic 57–81; PULSE 61–72; RESP 11–17; TEMP 36.5–36.8; O2SAT 92–100; BMI 27.4
--- NOTE | ~2022-05-08 | XR_ITS ---
EXAMINATION: XR fluoroscopy no charge DATE: 05/08/2022 10:38 INDICATION: Lumbar laminectomy TECHNIQUE: Single lateral fluoroscopic image of the lower lumbar spine was obtained during procedure performed by Dr. Yates. Radiologist was not present for the imaging or procedure. The amount of fl uoroscopy time used during this procedure was 0.1 minutes. COMPARISON: None. FINDINGS: Moderate to severe lower lumbar spondylosis. Partially visualized metallic surgical instrum entation likely representing a probe and tissue retractors project over the posterior elements at lev el of L4-L5. Surgical clip projects of the abdominal soft tissues anterior to L5. IMPRESSION: 1. Fluoroscopy utilized during surgical procedure at the lower lumbar spine. See procedure note for f urther detail. Reviewed, dictated and finalized at location L. IMPRESSION: 1. Fluoroscopy utilized during surgical procedure at the lower lumbar spine. Se e procedure note for further detail.
[2022-05-08] MEDS: LACTATED RINGERS 1,000 ML 30 ML IV CONT ×2 (06:30→10:20)
--- NOTE | 2022-05-08 07:30 | WPDANESEPPF ---
Anes - Initial Pre Proc Eval Procedure: Operation Date: 05/08/22 08:30 Proposed Procedures p L4 -5 Laminectomy - Larry Yates MD Date/Time: 05/08/22 07:30 Surgeon: Larry Yates MD Pre Op Diagnosis: L4 -5 Stenosis Patient Data Age: 87 Gender: F Height: 1.63 m Weight: 70.45 kg Allergies Allergy/AdvReac Type Severity Reaction Status Date / Time No Known Allergies Allergy Verified 05/03/22 12:51 Home Medications Medication Instructions Recorded Confirmed Type amitriptyline 10 mg tablet 10 mg PO DAILY 07/19/20 05/03/22 History brimonidine 0.1 % eye drops 0.1 drp RIGHT EYE BID 07/19/20 05/08/22 History (Alphagan P) losartan 100 mg tablet 100 mg PO DAILY 07/19/20 05/08/22 History magnesium oxide 400 mg (241.3 mg 400 mg PO DAILY 07/19/20 05/08/22 History magnesium) tablet metoprolol tartrate 100 mg tablet 100 mg PO BID 07/19/20 05/08/22 History metronidazole 0.75 % topical cream 1 applic topical PRN ROSACEA 07/19/20 05/03/22 History pantoprazole 40 mg tablet,delayed 40 mg PO DAILY 07/19/20 05/08/22 History release pravastatin 40 mg tablet 40 mg PO DAILY 07/19/20 05/03/22 History travoprost 0.004 % eye drops 1 drp RIGHT EYE HS 07/19/20 05/03/22 History aspirin 81 mg capsule 81 mg PO DAILY 02/27/21 05/03/22 History coenzyme Q10 10 mg capsule (Co 10 mg PO ONCE 02/27/21 05/03/22 History Q-10) multivitamin 1 tablet PO DAILY 02/27/21 05/03/22 History spironolactone 25 mg tablet 25 mg PO DAILY 02/27/21 05/03/22 History chlorthalidone 25 mg tablet 25 mg PO DAILY 05/03/22 05/03/22 History Patient hx anesthesia problems: none Family hx anesthesia problems: none Results Review: All pre-operative results and documents have been reviewed as part of the pre-operative evaluation. [facility] Past Medical History Medical History Hyperlipidemia Hypertension Lumbar radiculopathy, chronic Lumbosacral spondylosis with radiculopathy Plantar fasciitis of left foot Surgical History Surgical History History of cholecystectomy 1995 per patient questionnaire History of eye surgery 1996 per patient questionnaire Family History Family History Other Arthritis Carcinoma of colon Cerebrovascular accident Diabetes mellitus Heart disease Hypertension Social History Social History Smoking status: Never smoker Second hand tobacco smoke exposure: No Alcohol intake: never Substance use: never Substance use type: does not use Living arrangements: alone Occupation/Education: retired Gender identity (if verbalized by the patient): Female Spiritual care concerns: No Anes - Eval Final PreProcedure Day of Procedure 05/08/22 07:30 Patient weight: overweight Heart: regular rate and rhythm Lungs: clear to auscultation Airway: Mallampati scale class II Neurological: alert and oriented Last oral intake: >/= 8 hours ASA classification: III Emergent: no Anesthetic plan: proceed Anesthesia type and monitoring: general ETT and standard monitoring Results Review: All pre-operative results and documents have been reviewed as part of the pre-operative evaluation. Informed Consent: The patient's anesthetic plan and its attendant risks and benefits were discussed with the patient/family/POA. Questions were solicited and answers provided to the satisfaction of the patient/family/POA.
--- NOTE | 2022-05-08 08:42 | PM.IMHP ---
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 She has not changed appreciably since we last saw her. She is not having any bowel or bladder difficulty. She does not have specific muscle group weakness of dermatomal numbness. Review of Systems Review of Systems: Patient denies shortness of breath, cough, fever, chills, nausea, vomiting, weight loss, weight gain, chest pain, dysuria. She has back and leg pain and claudication as above. Review of systems is otherwise negative on 12 systems except as noted elsewhere. [facility] Past Medical History Medical History Hyperlipidemia Hypertension Lumbar radiculopathy, chronic Lumbosacral spondylosis with radiculopathy Plantar fasciitis of left foot Surgical History Surgical History History of cholecystectomy 1995 per patient questionnaire History of eye surgery 1996 per patient questionnaire Family History Family History Other Arthritis Carcinoma of colon Cerebrovascular accident Diabetes mellitus Heart disease Hypertension Social History Social History Smoking status: Never smoker Second hand tobacco smoke exposure: No Alcohol intake: never Substance use: never Substance use type: does not use Living arrangements: alone Occupation/Education: retired Gender identity (if verbalized by the patient): Female Spiritual care concerns: No Meds Home Medications and Allergies Home Medications Medication Instructions Recorded Confirmed Type amitriptyline 10 mg tablet 10 mg PO DAILY 07/19/20 05/03/22 History brimonidine 0.1 % eye drops 0.1 drp RIGHT EYE BID 07/19/20 05/08/22 History (Alphagan P) losartan 100 mg tablet 100 mg PO DAILY 07/19/20 05/08/22 History magnesium oxide 400 mg (241.3 mg 400 mg PO DAILY 07/19/20 05/08/22 History magnesium) tablet metoprolol tartrate 100 mg tablet 100 mg PO BID 07/19/20 05/08/22 History metronidazole 0.75 % topical cream 1 applic topical PRN ROSACEA 07/19/20 05/03/22 History pantoprazole 40 mg tablet,delayed 40 mg PO DAILY 07/19/20 05/08/22 History release pravastatin 40 mg tablet 40 mg PO DAILY 07/19/20 05/03/22 History travoprost 0.004 % eye drops 1 drp RIGHT EYE HS 07/19/20 05/03/22 History aspirin 81 mg capsule 81 mg PO DAILY 02/27/21 05/03/22 History coenzyme Q10 10 mg capsule (Co 10 mg PO ONCE 02/27/21 05/03/22 History Q-10) multivitamin 1 tablet PO DAILY 02/27/21 05/03/22 History spironolactone 25 mg tablet 25 mg PO DAILY 02/27/21 05/03/22 History chlorthalidone 25 mg tablet 25 mg PO DAILY 05/03/22 05/03/22 History Allergies Allergy/AdvReac Type Severity Reaction Status Date / Time No Known Allergies Allergy Verified 05/08/22 07:49 Vital Signs Vital Signs - 24 hr 05/08/22 06:30 Temperature 98.2 F Pulse Rate 62 Respiratory Rate 16 Blood Pressure 128/73 Pulse Oximetry 99 Oxygen Delivery Room Air Exam Narrative: Strength is normal the bilateral lower extremities to direct confrontation. Sensation is intact to light touch throughout the lower extremities. Breathing is nonlabored. She speaks in complete sentences without difficulty. Regular rate and rhythm Assessment and Plan Assessment and plan (1) Lumbar disc herniation: Code(s): M51.26 - Other intervertebral disc displacement, lumbar region Status: Acute (2) Lumbar stenosis: Code(s): M48.061 - Spinal stenosis, lumbar region without neurogenic claudication Status: Acute Assessment and Plan: Marisel presents now for L4-5 laminectomy. I again described to her that operation, its risks, p
--- NOTE | 2022-05-08 08:45 | WPDHPUPDATE1 ---
History and Physical Update Update Date/Time: 05/08/22 08:45 History and Physical has been reviewed, including an updated exam of the patient. There are NO changes in the patient's condition. Risks, benefits, and alternatives have been discussed and questions answered. Patient agrees to proceed with procedure.
[2022-05-08] MEDS: ceFAZolin 2 GM/D5W 50 ML 2 GM/50 ML BAG IVPB (09:02)
[2022-05-08] MEDS: LIDO 1%/EPINEPHRINE 1:100,000 20 ML VIAL 10 ML INFILTRATE (09:35)
--- NOTE | 2022-05-08 10:21 | W.PM.PROC2 ---
Procedure Note - Detailed Date of Procedure 05/08/22 Pre-op Diagnosis L4 -5 Stenosis Post-op Diagnosis Same Procedure Performed L4-5 laminectomy Surgeon Larry Yates MD Ethnoarchaeologist Bo Anesthesia General Description of Procedure The patient was brought to the operating room in the supine position, was sedated, intubated and placed under general anesthesia in routine fashion. He was then turned to the prone position on Tam frame. The area of operation on her back was examined, marked for incision, prepped and draped in routine sterile fashion. Incision was marked over the L4 and L5 spinous processes in the midline. This area was injected with 0.5% lidocaine with [id number] epinephrine. Intravenous antibiotics given prior to incision. Incision was made with a 10 blade scalpel down to the lumbodorsal fascia. A subperiosteal dissection of the muscle soft tissue away from spinous process lamina at L4-5 was performed with a subperiosteal elevator and Bovie cautery. A verifying x-rays obtained to verify the level of operation. Spinous processes at L4-L5 were removed with a Anuel rongeur. Midas Alejandro drill with an Tower bit was used to thin the lamina in the midline into the soft contents of the canal were encountered. A curved curette and Kerrison punches were used to remove the rest of the bone in the midline and. A plane was dissected with the dura and Kerrison punches were used to remove ligament in the midline and then bone and ligament in the lateral epidural space starting superiorly working inferiorly. This was done bilaterally. It was performed until a Sue instrument could be placed in the lateral epidural space to confirm lack of compression. The wound was then copiously irrigated with bacitracin irrigation all bleeding stopped with bipolar and Bovie cautery and Gelfoam thrombin powder. A medium Hemovac drain was left in the subfascial position. I to the inferior and right of the incision. The wound was then closed in layered fashion with 2-0 Vicryl interrupted sutures in the lumbodorsal fascia and Baljeet's layer. 3-0 Vicryl buried interrupted sutures were placed in the dermis and the skin was closed with a running 4-0 Monocryl subcuticular stitch and dressed with Dermabond and a Telfa and Tegaderm dressing. The patient was allowed to wake up in the operating room and was taken to the recovery room in stable condition. There were no immediate complications of this operation. All counts were reported correct and case. Blood loss was 30 cc. The patient is neurologically at her baseline postoperatively. CPT codes: 61663, 51501 Estimated Blood Loss 30 IV Fluids 1,000 Drains Yes Complications None Condition Stable Disposition PACU [facility] Billing Surgery - Charge Forward: Surgery Billing
--- NOTE | 2022-05-08 11:45 | ADMGEN ---
This patient, Marisel Blunt, was admitted to Medical Room 254-01. Patient/family oriented to hospital policies and general routines including ID bracelet, bed and alarms, visiting hours, pain management, procedures, bathroom and other care routines, personal items, smoking policy, room service/diet, and visiting hours. Information on how to activate the Rapid Response Team has been discussed. Patient/Family are encouraged to report perceived risks to care and to ask questions if they do not understand what they are told or what they should do.
[2022-05-08] MEDS: ceFAZolin 1 GM/NS 50 ML 1 GM/50 ML BAG IVPB (16:36)
[2022-05-08] MEDS: METOPROLOL TARTRATE 50 MG TAB 100 MG PO (16:36)
[2022-05-08] MEDS: BRIMONIDINE TARTRATE 0.1% 5 ML OPHTH DROPS 1 DROP RIGHT EYE (16:37)
[2022-05-08] MEDS: HYDROcodone/acetaminophen (*CRX) 10-325 MG TABLET 1 TAB PO (16:39)
[2022-05-08] MEDS: LATANOPROST 0.005% OP SOLN 2.5 ML BTL 1 DROP RIGHT EYE (21:48)
[2022-05-08] MEDS: DOCUSATE SODIUM 100 MG CAPSULE PO (21:48)
[2022-05-08] MEDS: HYDROcodone/acetaminophen (*CRX) 5-325 MG TABLET 1 TAB PO (21:54)
[2022-05-08] MEDS: ONDANSETRON INJ 4 MG/2 ML VIAL IV PUSH (21:55)
[2022-05-09] MEDS: ceFAZolin 1 GM/NS 50 ML 1 GM/50 ML BAG IVPB ×2 (01:41→09:41)
[2022-05-09 05:03] VITALS: BP 118/61; PULSE 75; RESP 18; TEMP 36.7; O2SAT 94
[2022-05-09] MEDS: BRIMONIDINE TARTRATE 0.1% 5 ML OPHTH DROPS 1 DROP RIGHT EYE (09:41)
[2022-05-09 09:42] VITALS: PULSE 70
[2022-05-09] MEDS: METOPROLOL TARTRATE 50 MG TAB 100 MG PO (09:42)
[2022-05-09] MEDS: AMITRIPTYLINE HCL 10 MG TABLET PO (09:42)
[2022-05-09] MEDS: MAGNESIUM OXIDE 400 MG TABLET PO (09:42)
[2022-05-09] MEDS: SPIRONOLACTONE 25 MG TABLET PO (09:42)
[2022-05-09] MEDS: CHLORTHALIDONE 25 MG TABLET PO (09:42)
[2022-05-09] MEDS: MULTIVITAMINS THERAPEUTIC TAB (*BKC) 1 TABLET PO (09:42)
[2022-05-09] MEDS: PANTOPRAZOLE 40 MG TABLET PO (09:42)
[2022-05-09] MEDS: LOSARTAN POTASSIUM 100 MG TABLET PO (09:43)
[2022-05-09] MEDS: DOCUSATE SODIUM 100 MG CAPSULE PO (09:43)
[2022-05-09] MEDS: PRAVASTATIN SODIUM 20 MG TABLET 40 MG PO (09:43)
[2022-05-09 11:00] VITALS: BP 133/66; PULSE 98; RESP 18; TEMP 37.2; O2SAT 98
--- NOTE | 2022-05-09 11:45 | WPDANESPN ---
Anes - Prog Note Post-Op Date/Time: 05/09/22 11:45 Cardiovascular status: normal Respiratory status: normal Airway patency: baseline Mental status: baseline Post-Op hydration status: normal Vital Signs: Last Vital Signs Temp 37.2 C 05/09/22 11:00 Pulse 98 05/09/22 11:00 Resp 18 05/09/22 11:00 BP 133/66 05/09/22 11:00 Pulse Ox 98 05/09/22 11:00 O2 Del Method Room Air 05/09/22 08:00 O2 Flow Rate 6 05/08/22 10:35 Pain Score (VAS): 0 I/O: Intake & Output 05/08/22 05/09/22 05/09/22 23:59 07:59 15:59 Intake Total 530 300 360 Output Total 120 750 Balance 410 -450 360 Post-procedural complaints: none Patient Feedback: Patient satisfied with anesthetic care.
== END 2022-05-09 13:31 | disposition home or self-care (01) ==
LOC: ANHSURGERY 06:13 → ANH2MED 11:13
PROVIDERS: PCP Internal Medicine; Visit Provider Neurological Surgery
PROC: (CPT 63005; principal; 2022-05-08 08:30)
DX: M48.061 Spinal stenosis, lumbar region without neurogenic claudication (principal); M51.26 Other intervertebral disc displacement, lumbar region; I10 Essential (primary) hypertension; E78.5 Hyperlipidemia, unspecified; Z79.82 Long term (current) use of aspirin
CPT/HCPCS: 63047; 36415; 86850; 86900; 86901; 97161; 97165; 97530; 97535; 99199; A9270; J0330; J0690; J2405; J2704; J3010; J7120

== ENCOUNTER 2022-06-28 07:33 | Outpatient (CLI) | payer MEDICARE, SELFPAY ==
[2022-06-28 07:48] LABS: Appearance Urine Clear (Clear); Bilirubin Urine Negative (Negative); Blood Urine Negative (Negative); Color Urine Light Yellow (Yellow); Glucose Urine UA Negative (Negative); Ketones Urine Negative (Negative); Leukocyte Esterase Ur Negative (Negative); Nitrate Urine Negative (Negative); Protein Urine Negative (Negative); Urobilinogen Urine 0.2 mg/dL (0.2-1.0)
[2022-06-28 07:49] LABS: Hemoglobin 15.8 g/dL (11.7-13.8); Immature Platelet Fraction Pct 4.2 % (1.0-7.0); Mean Corpuscular HGB Conc 32.9 g/dL (32.0-36.0); Mean Corpuscular Hemoglobin 30.1 pg (27.0-31.0); Mean Corpuscular Volume 91.4 fL (78.0-102.0); Mean Platelet Volume 10.9 fl (9.2-11.8); Platelet Count Result 117 K/mm3 (150-420); Red Blood Count 5.25 M/mm3 (4.20-5.40); Red Cell Distribution Width 11.9 % (11.6-14.4); White Blood Count 3.6 K/mm3 (4.8-10.8)
[2022-06-28 07:57] LABS: Hemoglobin A1C 5.7 % (<5.7)
[2022-06-28 08:12] LABS: Band Neutrophils Percent 1 % (0-6); Basophils Percent Manual 0 % (0-1); Eosinophils Percent Manual 0 % (1-6); Lymphocytes Absolute Manual 1.62 K/mm3 (1.1-4.5); Lymphocytes Percent Manual 45 % (18-44); Monocytes Absolute Manual 0.21 K/mm3 (0.1-0.90); Monocytes Percent Manual 6 % (3-9); Neutrophils Absolute Manual 1.76 K/mm3 (1.7-7.2); Neutrophils Percent Manual 48 % (46-73); Total Cells Counted 100
[2022-06-28 08:13] LABS: Platelet Estimate Adequate (Adequate)
[2022-06-28 08:15] LABS: Add Urine Microscopic? NO
[2022-06-28 08:51] LABS: Alanine Aminotransferase 46 U/L (14-59); Albumin Level 4.2 g/dL (3.4-5.0); Alkaline Phosphatase 107 U/L (46-116); Anion Gap 8 mmol/L (8-16); Aspartate Amino Transferase 30 U/L (15-37); Bilirubin,Total 1.2 mg/dL (0.00-1.00); Blood Urea Nitrogen 26 mg/dL (7-18); Calcium 10.1 mg/dL (8.5-10.1); Carbon Dioxide 30 mmol/L (21-32); Chloride 104 mmol/L (98-108); Cholesterol 149 mg/dL (0-200); Creatine Kinase 100 U/L (26-192); Estimated Glomerular Filt Rate 58; Free T4 Free Thyroxine 1.32 ng/dL (0.76-1.46); Glucose 125 mg/dL (70-99); HDL Direct 62 mg/dL (40-60); LDL Cholesterol Calculated 66 mg/dL (<130); Osmolality Calculated 299 mOsm/kg (285-295); Potassium 4.3 mmol/L (3.5-5.1); Sodium 142 mmol/L (136-145); Thyroid Stimulating Hormone 0.28 uIU/mL (0.36-3.74); Total Protein 7.1 g/dL (6.4-8.2); Triglycerides 106 mg/dL (0-150); Vitamin B12 625 pg/mL (193-986)
[2022-06-28 09:08] LABS: Erythrocyte Sedimentation Rate 1 mm/hr (0-30)
[2022-06-28 09:09] LABS: CRP < 0.5 mg/dL (0.0-0.9)
== END 2022-06-28 07:34 | disposition home or self-care (01) ==
LOC: CHSLAB 07:34
PROVIDERS: PCP Internal Medicine; Visit Provider Internal Medicine
DX: M35.81 Multisystem inflammatory syndrome (principal); I10 Essential (primary) hypertension; E11.9 Type 2 diabetes mellitus without complications; E78.2 Mixed hyperlipidemia; I25.10 Atherosclerotic heart disease of native coronary artery without angina pectoris; R94.5 Abnormal results of liver function studies
CPT/HCPCS: 36415; 80053; 80061; 81003; 82550; 82607; 83036; 84439; 84443; 85025; 85055; 85652; 86140

== ENCOUNTER → 2022-07-13 10:54 | Outpatient (CLI) | payer MEDICARE, BC, SELFPAY ==
--- NOTE | ~2022-07-13 | MR_ITS ---
. EXAMINATION: MR lumbar spine wo/w con DATE: 07/13/2022 11:57 INDICATION: Spinal stenosis, lumbar region. Low back pain. TECHNIQUE: Magnetic resonance imaging (MRI) of the lumbar spine was performed without and with 14 mL MultiHance intravenous contrast. COMPARISON: Lumbar spine MRI 01/22/2022 FINDINGS: There is 3 degrees levocurvature of lumbar spine. Vertebral body heights are normal. There is a Schmorl's node of superior endplate of L3. There is severely decreased disc height at L4-L5 and L5-S1. The distal spinal cord signal intensity is normal. The conus medullaris is at L1-L2. There is a 3.5 cm cyst in right kidney. The following disc levels are specifically discussed: L1-L2: The disc does not extend beyond the endplate margin. There is mild bilateral facet joint osteo arthritis. There is no neural foraminal stenosis. There is no central canal stenosis. L2-L3: The disc is bulging. There is moderate bilateral facet joint osteoarthritis. There is mild yvonne ateral neural foraminal stenosis. There is no central canal stenosis. L3-L4: The disc is bulging. There is mild bilateral facet joint osteoarthritis. There is mild right a nd moderate left neural foraminal stenosis. There is hypertrophy of the ligamentum flavum. There is m ild central canal stenosis. L4-L5: The disc is bulging and has an annular fissure. There is severe bilateral facet joint osteoart hritis. There is moderate bilateral neural foraminal stenosis. There is mild central canal stenosis w ith posterior decompression. L5-S1: The disc is bulging and has an annular fissure. There is moderate bilateral facet joint osteoa rthritis. There is moderate bilateral neural foraminal stenosis. There is mild central canal stenosis . IMPRESSION: 1. Severe lower lumbar spondylosis with improved central canal stenosis at L4-L5 status post posterio r decompression. 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 IMPRESSION: 1. Severe lower lumbar spondylosis with improved central canal stenosis at L4-L 5 status post posterior decompression.
== END ==
PROVIDERS: PCP Neurological Surgery; Visit Provider Neurological Surgery
DX: M48.061 Spinal stenosis, lumbar region without neurogenic claudication (principal); M47.896 Other spondylosis, lumbar region
CPT/HCPCS: 72158; A9577

== ENCOUNTER 2022-10-09 07:09 | Outpatient (CLI) | payer MEDICARE, SELFPAY ==
[2022-10-09 07:42] LABS: Hemoglobin A1C 5.9 % (<5.7)
[2022-10-09 08:24] LABS: Alanine Aminotransferase 78 U/L (14-59); Albumin Level 4.1 g/dL (3.4-5.0); Alkaline Phosphatase 115 U/L (46-116); Anion Gap 5 mmol/L (8-16); Aspartate Amino Transferase 38 U/L (15-37); Bilirubin,Total 0.9 mg/dL (0.00-1.00); Blood Urea Nitrogen 32 mg/dL (7-18); Carbon Dioxide 34 mmol/L (21-32); Chloride 102 mmol/L (98-108); Estimated Glomerular Filt Rate 56; Free T3 2.39 pg/mL (2.18-3.98); Free T4 Free Thyroxine 1.04 ng/dL (0.76-1.46); Glucose 103 mg/dL (70-99); Osmolality Calculated 298 mOsm/kg (285-295); Sodium 141 mmol/L (136-145); Thyroid Stimulating Hormone 2.53 uIU/mL (0.36-3.74); Total Protein 7.1 g/dL (6.4-8.2)
== END 2022-10-09 07:10 | disposition home or self-care (01) ==
LOC: CHSLAB 07:10
PROVIDERS: PCP Internal Medicine; Visit Provider Internal Medicine
DX: E11.9 Type 2 diabetes mellitus without complications (principal); G62.9 Polyneuropathy, unspecified
CPT/HCPCS: 36415; 80053; 83036; 84439; 84443; 84481

== ENCOUNTER 2022-10-28 10:02 | Emergency (ER) | payer MEDICARE, BC, SELFPAY ==
--- NOTE | ~2022-10-28 | CT_ITS ---
EXAMINATION: CT cervical spine wo con DATE: 10/28/2022 10:34 INDICATION: Head injury TECHNIQUE: Computed tomography (CT) of the cervical spine was performed without intravenous contrast. The dose-length product (DLP) was 287.78 mGy-cm. Automated exposure control and iterative reconstruc tion technique were employed. COMPARISON: None FINDINGS: Bone alignment is normal. There is no fracture. The odontoid process is intact. There is mo derate loss of intervertebral disc space height throughout the cervical spine. The vertebral body hei ghts are maintained. There is multilevel moderate facet and uncovertebral joint osteoarthritis. IMPRESSION: 1. Moderate cervical spondylosis without acute findings. 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
--- NOTE | ~2022-10-28 | XR_ITS ---
EXAMINATION: XR elbow RT min 3V INDICATION: Right elbow pain TECHNIQUE: Four views of the right elbow are obtained. COMPARISON: None available FINDINGS: Bone alignment is normal. There is no fracture. There is soft posterior soft tissue swellin g of the elbow overlying the olecranon. IMPRESSION: 1. Soft tissue swelling without acute osseous abnormality. 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
--- NOTE | ~2022-10-28 | CT_ITS ---
EXAMINATION: CT brain wo con INDICATION: Head injury COMPARISON: 08/03/2021 TECHNIQUE: Standard unenhanced head CT. The dose-length product (DLP) was 605.33 mGy-cm. The mA was a djusted according to patient size. Iterative reconstruction technique was employed. FINDINGS: No acute intraparenchymal hemorrhage. No evidence of mass lesion. No evidence of acute infa rction. There is mild periventricular and subcortical hypodensity probably related to small vessel is chemic disease. There is mild prominence of the sulci and ventricles related to cerebral atrophy. Int racranial calcified cerebral atherosclerosis is noted. No extra-axial collections. No mass effect or midline shift. The orbits and soft tissues are unremarkable. There is complete opacification of the r ight sphenoid sinus with wall thickening of the sinus, consistent with chronic sinusitis. IMPRESSION: 1. No acute intracranial abnormality. 2. Age related findings. 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
[2022-10-28 10:10] VITALS: BP 179/86; PULSE 66; RESP 17; TEMP 36.6; O2SAT 99
[2022-10-28 10:30] VITALS: BP 152/83; PULSE 56; RESP 17; O2SAT 97
--- NOTE | 2022-10-28 10:45 | ED.HEATRA ---
HPI - Head Injury General Chief complaint: Head Injury Stated complaint: Fall Time Seen by Provider: 10/28/22 10:07 Source: patient Mode of arrival: ambulatory Limitations: no limitations History of Present Illness HPI Narrative: patient is an 87-year-old female with a fall coming out of the shower prior to arrival. She hurt the back of her head and right elbow. Complaint: head injury Onset (ago): minute(s) Mechanism of Injury: fall Place: home Loss of Consciousness: no Location of injury: occipital Severity: mild Severity scale (1-10): 1 Quality: dull Radiation: none Other Injuries: upper extremity ( Right elbow) Context: on aspirin Associated symptoms: denies other symptoms Related Data Home Medications Medication Instructions Recorded Confirmed amitriptyline 10 mg tablet 10 mg PO DAILY 07/19/20 10/28/22 brimonidine 0.1 % eye drops 0.1 drp RIGHT EYE BID 07/19/20 10/28/22 (Alphagan P) losartan 100 mg tablet 100 mg PO DAILY 07/19/20 10/28/22 metoprolol tartrate 100 mg tablet 100 mg PO BID 07/19/20 10/28/22 pantoprazole 40 mg tablet,delayed 40 mg PO DAILY 07/19/20 10/28/22 release pravastatin 40 mg tablet 40 mg PO DAILY 07/19/20 10/28/22 travoprost 0.004 % eye drops 1 drp RIGHT EYE HS 07/19/20 10/28/22 aspirin 81 mg capsule 81 mg PO DAILY 02/27/21 10/28/22 multivitamin 1 tablet PO DAILY 02/27/21 10/28/22 chlorthalidone 25 mg tablet 25 mg PO DAILY 05/03/22 10/28/22 Allergies Allergy/AdvReac Type Severity Reaction Status Date / Time hydrocodone [From [place]] Allergy Unknown Verified 10/28/22 10:32 Review of Systems Review of Systems: All systems reviewed & are unremarkable except as noted in HPI and below Constitutional: Constitutional: Reports no additional constitutional complaints Eyes: Eyes: Reports no additional eye complaints ENT: Reports system reviewed and no additional complaints, except as documented Cardiovascular: Cardiovascular: Reports no additional cardiovascular complaints Respiratory: Respiratory: Reports no additional respiratory complaints Gastrointestinal: Gastrointestinal: Reports no additional gastrointestinal complaints Genitourinary: Genitourinary: Reports no additional female genitourinary complaints Musculoskeletal: Musculoskeletal: Reports no additional musculoskeletal complaints Integumentary/Breasts: Skin/Breast: Reports system reviewed and no additional complaints, except as docu Neurologic: Reports system reviewed and no additional complaints, except as documented Psychiatric: Psychiatric: Reports no additional psychiatric complaints Endocrine: Endocrine: Reports no additional endocrine complaints Hematologic/Lymphatic: Hematologic/Lymphatic: Reports no additional hematologic/lymphatic complaints Allergic/Immunologic: Allergic/Immunologic: Reports no additional allergic/immunologic complaints PMFSH Past Medical History Medical History Hyperlipidemia Hypertension Lumbar radiculopathy, chronic Lumbosacral spondylosis with radiculopathy Plantar fasciitis of left foot Surgical History Surgical History History of cholecystectomy 1995 per patient questionnaire History of eye surgery 1996 per patient questionnaire Family History Family History Other Arthritis Carcinoma of colon Cerebrovascular accident Diabetes mellitus Heart disease Hypertension Social History Social History Social History: Marisel is very confident filling out medical forms. In the last 12 months she has not received assistance from an organization or program. Smoking status: Never smoker Second hand tobacco smoke exposure: No Alcohol intake: never Substance use: never Substance use type: does not use Lack of Transportation: No Lack of Food:
[2022-10-28 11:00] VITALS: BP 173/78; PULSE 65; RESP 17; O2SAT 98
[2022-10-28 11:30] VITALS: BP 166/72; PULSE 60; RESP 17; O2SAT 97
[2022-10-28 11:54] VITALS: BP 158/74; PULSE 59; RESP 17; TEMP 36.6; O2SAT 97
== END 2022-10-28 11:54 | disposition home or self-care (01) ==
PROVIDERS: Emergency Provider Emergency Medicine; PCP Internal Medicine
DX: S09.90XA Unspecified injury of head, initial encounter (principal); M25.521 Pain in right elbow; E78.5 Hyperlipidemia, unspecified; I10 Essential (primary) hypertension; Z79.82 Long term (current) use of aspirin; Z79.899 Other long term (current) drug therapy; W18.2XXA Fall in (into) shower or empty bathtub, initial encounter; Y92.002 Bathroom of unspecified non-institutional (private) residence as the place of occurrence of the external cause
CPT/HCPCS: 70450; 72125; 73080; 99284

== ENCOUNTER 2022-11-01 09:14 | Emergency (ER) | payer MEDICARE, BC, SELFPAY ==
--- NOTE | ~2022-11-01 | CT_ITS ---
EXAMINATION: CT brain wo con INDICATION: Headache, head injury COMPARISON: 10/28/2022 TECHNIQUE: Standard unenhanced head CT. The dose-length product (DLP) was 605.33 mGy-cm. The mA was a djusted according to patient size. Iterative reconstruction technique was employed. FINDINGS: No acute intraparenchymal hemorrhage. No evidence of mass lesion. No evidence of acute infa rction. There is mild periventricular and subcortical hypodensity probably related to small vessel is chemic disease. There is mild prominence of the sulci and ventricles related to cerebral atrophy. Int racranial calcified cerebral atherosclerosis is noted. No extra-axial collections. No mass effect or midline shift. The orbits and soft tissues are unremarkable. Chronic right sphenoid sinusitis is agai n noted. IMPRESSION: 1. No acute intracranial abnormality. 2. Age related findings. Reviewed, dictated and finalized at location L.
--- NOTE | 2022-11-01 09:24 | ECG_ITS ---
Measurements Intervals [place] Rate: 66 P: 73 [place]: 176 QRS: 15 QRSD: 121 T: 71 QT: 390 QTc: 411 Interpretive Statements SINUS RHYTHM INCOMPLETE RIGHT BUNDLE BRANCH BLOCK MINIMAL Q WAVES- ANTEROLAT/INF LEADS BORDERLINE ECG COMPARED TO ECG 04/10/2022 07:35:43 NO SIGNIFICANT CHANGES Electronically Signed On 11-01-2022 9:50:54 CDT by Sukhwinder Matthews D.O.
[2022-11-01 09:25] VITALS: BP 186/102; PULSE 71; RESP 20; TEMP 36.1; O2SAT 99
[2022-11-01 09:33] VITALS: BP 152/105
[2022-11-01 09:42] LABS: Basophils Absolute Auto 0.02 K/mm3 (0.00-0.10); Basophils Percent Auto 0.5 % (0.0-1.0); Eosinophils Absolute Auto 0.03 K/mm3 (0.02-0.50); Eosinophils Percent Auto 0.7 % (1.0-6.0); Hematocrit 46.6 % (35.0-42.0); Hemoglobin 15.6 g/dL (11.7-13.8); Immature Granulocyte Absolute 0.06 K/mm3 (0.00-0.00); Immature Granulocyte Percent A 1.5 % (0.0-0.0); Lymphocytes Absolute Auto 1.65 K/mm3 (1.10-4.50); Mean Corpuscular HGB Conc 33.5 g/dL (32.0-36.0); Mean Corpuscular Hemoglobin 31.2 pg (27.0-31.0); Mean Corpuscular Volume 93.2 fL (78.0-102.0); Mean Platelet Volume 10.8 fl (9.2-11.8); Monocytes Absolute Auto 0.39 K/mm3 (0.10-0.90); Monocytes Percent Auto 9.7 % (2.0-11.0); Neutrophils Absolute Auto 1.9 K/mm3 (1.7-7.2); Neutrophils Percent Auto 46.6 % (50.0-70.0); Platelet Count Result 116 K/mm3 (150-420); Red Cell Distribution Width 12.9 % (11.6-14.4)
[2022-11-01 10:05] LABS: Alanine Aminotransferase 75 U/L (14-59); Albumin Level 3.8 g/dL (3.4-5.0); Alkaline Phosphatase 102 U/L (46-116); Anion Gap 6 mmol/L (8-16); Aspartate Amino Transferase 44 U/L (15-37); Blood Urea Nitrogen 30 mg/dL (7-18); Calcium 10.6 mg/dL (8.5-10.1); Carbon Dioxide 31 mmol/L (21-32); Chloride 103 mmol/L (98-108); Estimated CRCL calculation 34 ml/min; Estimated Glomerular Filt Rate > 60; Glucose 105 mg/dL (70-99); Osmolality Calculated 296 mOsm/kg (285-295); Potassium 4.2 mmol/L (3.5-5.1); Sodium 140 mmol/L (136-145); Total Protein 7.1 g/dL (6.4-8.2)
[2022-11-01 10:08] LABS: Troponin I 8.5 ng/L (0.00-60.4)
--- NOTE | 2022-11-01 10:13 | ED.HA ---
HPI - Headache General Chief Complaint: Headache Stated Complaint: headache Time Seen by Provider: 11/01/22 09:15 Source: patient Mode of arrival: ambulatory Limitations: no limitations History of Present Illness HPI Narrative: 87-year-old female that a fall with a minor injury approximately 1 week ago and started having a headache earlier today went to her primary care physician that center here to the emergency department to be evaluated. Patient has a headache that she describes is pressure-like in the frontal area with no blurry vision no nausea vomiting no neck pain or neck stiffness no fever chills, patient did describe chest discomfort with some GERD like symptoms epigastric tenderness with no abdominal pain no flank pain no dysuria no shortness of breath. MD elicited complaint: headache Pertinent past history: recent trauma Onset (ago): week(s) Onset description: gradually Location: frontal Related Data Home Medications Medication Instructions Recorded Confirmed amitriptyline 10 mg tablet 10 mg PO DAILY 07/19/20 11/01/22 brimonidine 0.1 % eye drops 0.1 drp RIGHT EYE BID 07/19/20 11/01/22 (Alphagan P) losartan 100 mg tablet 100 mg PO DAILY 07/19/20 11/01/22 metoprolol tartrate 100 mg tablet 100 mg PO BID 07/19/20 11/01/22 pantoprazole 40 mg tablet,delayed 40 mg PO DAILY 07/19/20 11/01/22 release pravastatin 40 mg tablet 40 mg PO DAILY 07/19/20 11/01/22 travoprost 0.004 % eye drops 1 drp RIGHT EYE HS 07/19/20 11/01/22 aspirin 81 mg capsule 81 mg PO DAILY 02/27/21 11/01/22 multivitamin 1 tablet PO DAILY 02/27/21 11/01/22 chlorthalidone 25 mg tablet 25 mg PO DAILY 05/03/22 11/01/22 brimonidine 0.2 % eye drops 1 drp ophthalmic (eye) DAILY 11/01/22 11/01/22 Allergies Allergy/AdvReac Type Severity Reaction Status Date / Time hydrocodone [From [place]] Allergy Unknown Verified 11/01/22 09:35 Review of Systems Review of Systems: All systems reviewed & are unremarkable except as noted in HPI and below PMFSH Past Medical History Medical History Hyperlipidemia Hypertension Lumbar radiculopathy, chronic Lumbosacral spondylosis with radiculopathy Plantar fasciitis of left foot Surgical History Surgical History History of cholecystectomy 1995 per patient questionnaire History of eye surgery 1996 per patient questionnaire Family History Family History Other Arthritis Carcinoma of colon Cerebrovascular accident Diabetes mellitus Heart disease Hypertension Social History Social History Social History: Marisel is very confident filling out medical forms. In the last 12 months she has not received assistance from an organization or program. Smoking status: Never smoker Second hand tobacco smoke exposure: No Alcohol intake: never Substance use: never Substance use type: does not use Lack of Transportation: No Lack of Food: Never True Current Housing: I Have Housing Concerned About Future Housing: No Difficulty Paying Gas/Electric Bills: No Difficulty Paying for Meds: No Currently Unemployed: No Education: Decline to Answer Difficulty w/ Childcare or Family Care: No Living arrangements: alone Occupation/Education: retired Gender identity (if verbalized by the patient): Female Spiritual care concerns: No Exam Const: General: healthy appearing Nutritional Appearance: well nourished Orientation/consciousness: patient oriented x3 Limitations: no limitations HENMT: Head: normal to inspection Eyes: Conjunctivae: conjunctivae normal Pupils: Equal, round and reactive pupils present EOM: EOMs intact bilaterally Neck: Neck: normal visual inspection, no lymphadenopathy and no meningeal signs Chest: Chest palpation & inspection: normal ins
[2022-11-01] MEDS: KETOROLAC 30 MG/ML VIAL (*BKC) IM (10:16)
[2022-11-01 10:44] VITALS: BP 179/93; PULSE 63; RESP 20; TEMP 37; O2SAT 99
== END 2022-11-01 10:46 | disposition home or self-care (01) ==
PROVIDERS: Emergency Provider Emergency Medicine; PCP Internal Medicine
DX: G44.89 Other headache syndrome (principal); E78.5 Hyperlipidemia, unspecified; I10 Essential (primary) hypertension; Z79.82 Long term (current) use of aspirin; Z79.899 Other long term (current) drug therapy
CPT/HCPCS: 36415; 70450; 80053; 84484; 85025; 93005; 96372; 99284; J1885

== ENCOUNTER 2022-12-04 07:17 | Outpatient (CLI) | payer MEDICARE, SELFPAY ==
[2022-12-04 08:13] LABS: Alanine Aminotransferase 59 U/L (14-59); Albumin Level 3.7 g/dL (3.4-5.0); Alkaline Phosphatase 97 U/L (46-116); Anion Gap 9 mmol/L (8-16); Aspartate Amino Transferase 36 U/L (15-37); Bilirubin,Total 0.9 mg/dL (0.00-1.00); Blood Urea Nitrogen 28 mg/dL (7-18); Calcium 10.1 mg/dL (8.5-10.1); Carbon Dioxide 28 mmol/L (21-32); Chloride 102 mmol/L (98-108); Estimated Glomerular Filt Rate 58; Glucose 132 mg/dL (70-99); Osmolality Calculated 295 mOsm/kg (285-295); Potassium 4.2 mmol/L (3.5-5.1); Sodium 139 mmol/L (136-145); Total Protein 6.4 g/dL (6.4-8.2)
== END 2022-12-04 07:18 | disposition home or self-care (01) ==
LOC: CHSLAB 07:19
PROVIDERS: PCP Internal Medicine; Visit Provider Internal Medicine
DX: R74.01 Elevation of levels of liver transaminase levels (principal)
CPT/HCPCS: 36415; 80053

== ENCOUNTER 2023-02-25 21:15 | Emergency (ER) | payer MEDICARE, BC, SELFPAY ==
--- NOTE | ~2023-02-25 | XR_ITS ---
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 RESULT: Lines, tubes, and devices: Cholecystectomy clips. Lungs and pleura: Senescent changes. Granulomas calcifications. Otherwise clear. Cardiomediastinal silhouette: Stable. Other: No acute osseous or upper abdominal finding. IMPRESSION: No acute cardiopulmonary process. Reviewed, dictated and finalized at location K. ERETTE MACHINE OPERATOR
--- NOTE | ~2023-02-25 | CT_ITS ---
EXAMINATION: CT brain wo con DATE: 02/25/2023 22:16 INDICATION: dizziness, n/v, frontal BUNCH, weakness . TECHNIQUE: Computed tomography (CT) of the head was performed without intravenous contrast. The mA wa s adjusted according to patient size. Iterative reconstruction technique was employed. The dose-lengt h product was 681.00 mGy-cm. COMPARISON: 11/01/2022. FINDINGS: No acute intracranial hemorrhage or extra-axial fluid collection. No hydrocephalus, mass, or herniation. No acute ischemic infarct. Unremarkable dural venous sinus attenuation. No acute osseous abnormality. Retention cyst/polyp in the right maxillary sinus. Mucosal thickening, intraluminal calcification, an d surrounding sclerosis in the right sphenoid sinus. The remaining aerated spaces are clear. Mild atrophy and chronic white matter change. Atherosclerotic intracranial calcification. Bilateral l ens replacements. IMPRESSION: No acute intracranial process. Chronic right sphenoid sinusitis. Reviewed, dictated and finalized at location K. RVISOR AIR CONDITIONING INSTALLER
--- NOTE | ~2023-02-25 | CT_ITS ---
CT ANGIOGRAM NECK AND HEAD History: Dizziness, nausea. Technique: Axial noncontrast imaging of the brain was performed. Serial spiral axial images through t he head and neck were then obtained during arterial phase IV injection of 100 cc of Omnipaque 350. 3- D postprocessing and MIP images were then reconstructed on the remote workstation. Dose reduction jarrett hnique was used on this scan by utilizing automated exposure control and iterative reconstruction jarrett hnique. The dose-length product (DLP) was 1904.80 mGy-cm. COMPARISON: 02/25/2023 CTA neck findings: Bilateral vertebral arteries are patent. Bilateral common carotid, internal carot id, and external carotid arteries are patent. There are small calcified plaques at the bilateral hall tid bifurcation regions without stenosis. No aneurysm. No large vessel occlusion. The proximal right internal carotid artery demonstrates 0% stenosis relative to the normal distal artery lumen diameter. The proximal left internal carotid artery demonstrates 0% stenosis relative to the normal distal art krystina lumen diameter. There is probable mild patchy groundglass opacity in the visualized upper lobe/lung apices CTA head findings: Distal vertebral arteries, basilar artery, and posterior cerebral arteries are pat ent. Distal internal carotid arteries, middle cerebral arteries, and anterior cerebral arteries are p atent. No large vessel occlusion. No stenosis or aneurysm. Axial noncontrast images of brain demonstrate no evidence for acute infarct, intracranial hemorrhage, or mass lesion. There are mild chronic white matter changes in the periventricular white matter bila terally. Ventricles and subarachnoid spaces are minimally dilated. Orbits are unremarkable. There is right sphenoid sinus disease. Remaining paranasal sinuses and mastoid air cells are clear. Impression: No significant vascular abnormality. Probable mosaic attenuation pattern/patchy groundglass opacities in the upper lungs bilaterally. Find ings are nonspecific, with a broad differential diagnosis. Likely diagnostic considerations could inc lude bronchiolitis, asthma, pulmonary edema. Reviewed, dictated and finalized at location M. URE PRESS OPERATOR Impression: No significant vascular abnormality. Probable mosaic attenuation pattern/patchy groundglass opacities in the upper l ungs bilaterally. Findings are nonspecific, with a broad differential diagnosis . Likely diagnostic considerations could include bronchiolitis, asthma, pulmona ry edema.
[2023-02-25 21:15] VITALS: BP 169/93; PULSE 70; RESP 18; TEMP 36.3; O2SAT 98
--- NOTE | 2023-02-25 21:16 | ECG_ITS ---
Measurements Intervals [place] Rate: 67 P: 61 [place]: 190 QRS: -26 QRSD: 98 T: 53 QT: 406 QTc: 431 Interpretive Statements SINUS RHYTHM LOW QRS VOLTAGE IN PRECORDIAL LEADS MINIMAL Q WAVES- HIGH LATERAL LEADS CONSIDER INFERIOR INFARCT, AGE INDETERMINATE BASELINE WANDER- I, III, AVL, AVF, V1, V3 ABNORMAL ECG COMPARED TO ECG 11/01/2022 09:37:45 NO SIGNIFICANT CHANGES Electronically Signed On 02-26-2023 8:09:29 STILL OPERATOR BATCH OR CONTINUOUS by Sukhwinder Matthews D.O.
[2023-02-25 21:32] LABS: Basophils Absolute Auto 0.01 K/mm3 (0.00-0.10); Basophils Percent Auto 0.2 % (0.0-1.0); Eosinophils Absolute Auto 0.05 K/mm3 (0.02-0.50); Eosinophils Percent Auto 1.1 % (1.0-6.0); Hematocrit 48.7 % (35.0-42.0); Hemoglobin 15.5 g/dL (11.7-13.8); Immature Granulocyte Absolute 0.05 K/mm3 (0.00-0.00); Immature Granulocyte Percent A 1.1 % (0.0-0.0); Immature Platelet Fraction Pct 4.5 % (1.0-7.0); Lymphocytes Absolute Auto 2.49 K/mm3 (1.10-4.50); Lymphocytes Percent Auto 56.2 % (18.0-42.0); Mean Corpuscular HGB Conc 31.8 g/dL (32.0-36.0); Mean Corpuscular Hemoglobin 29.9 pg (27.0-31.0); Mean Corpuscular Volume 93.8 fL (78.0-102.0); Mean Platelet Volume 10.8 fl (9.2-11.8); Monocytes Absolute Auto 0.48 K/mm3 (0.10-0.90); Monocytes Percent Auto 10.8 % (2.0-11.0); Neutrophils Absolute Auto 1.4 K/mm3 (1.7-7.2); Neutrophils Percent Auto 30.6 % (50.0-70.0); Platelet Count Result 107 K/mm3 (150-420); Red Blood Count 5.19 M/mm3 (4.20-5.40); Red Cell Distribution Width 11.3 % (11.6-14.4); White Blood Count 4.4 K/mm3 (4.8-10.8)
[2023-02-25 21:47] LABS: Partial Thromboplastin Time 24.6 SEC (23.90-30.70); Prothrombin Time 10.9 Seconds (9.50-12.10)
[2023-02-25 21:55] LABS: Lactic Acid Reflex 1.5 mmol/L (0.4-2.0)
[2023-02-25 21:57] LABS: Alanine Aminotransferase 60 U/L (14-59); Albumin Level 4.1 g/dL (3.4-5.0); Alkaline Phosphatase 96 U/L (46-116); Anion Gap 4 mmol/L (8-16); Aspartate Amino Transferase 38 U/L (15-37); Bilirubin,Total 0.6 mg/dL (0.00-1.00); Blood Urea Nitrogen 28 mg/dL (7-18); Calcium 10.3 mg/dL (8.5-10.1); Carbon Dioxide 32 mmol/L (21-32); Chloride 101 mmol/L (98-108); Estimated Glomerular Filt Rate 48; Glucose 154 mg/dL (70-99); NT Pro B Type Natriuretic Pept 268 pg/mL (0-450); Osmolality Calculated 292 mOsm/kg (285-295); Potassium 3.6 mmol/L (3.5-5.1); Sodium 137 mmol/L (136-145); Total Protein 7.2 g/dL (6.4-8.2); Troponin I 8.9 ng/L (0.00-60.4)
[2023-02-25] MEDS: ONDANSETRON HCL ODT 4 MG TABLET PO (22:00)
--- NOTE | 2023-02-25 22:00 | ED.DIZZY ---
HPI - Dizziness General Chief Complaint: Dizziness Stated Complaint: dizzy, clammy, diaphoretic Time Seen by Provider: 02/25/23 21:16 Source: patient Mode of arrival: ambulatory Limitations: no limitations Related Data Home Medications Medication Instructions Recorded Confirmed amitriptyline 10 mg tablet 10 mg PO DAILY 07/19/20 02/26/23 brimonidine 0.1 % eye drops 0.1 drp RIGHT EYE BID 07/19/20 02/26/23 (Alphagan P) losartan 100 mg tablet 100 mg PO DAILY 07/19/20 02/26/23 metoprolol tartrate 100 mg tablet 100 mg PO BID 07/19/20 02/26/23 pravastatin 40 mg tablet 40 mg PO DAILY 07/19/20 02/26/23 travoprost 0.004 % eye drops 1 drp RIGHT EYE HS 07/19/20 02/26/23 aspirin 81 mg capsule 81 mg PO DAILY 02/27/21 02/26/23 multivitamin 1 tablet PO DAILY 02/27/21 02/26/23 brimonidine 0.2 % eye drops 1 drp ophthalmic (eye) DAILY 11/01/22 02/26/23 latanoprost 0.005 % eye drops 1 drp EACH EYE HS 02/26/23 02/26/23 spironolactone 25 mg tablet 25 mg PO DAILY 02/26/23 02/26/23 Allergies Allergy/AdvReac Type Severity Reaction Status Date / Time hydrocodone [From [place]] Allergy Unknown Verified 01/29/23 09:08 Review of Systems Review of Systems: All systems reviewed & are unremarkable except as noted in HPI and below Constitutional: Constitutional: Reports no additional constitutional complaints Eyes: Eyes: Reports no additional eye complaints ENT: Reports system reviewed and no additional complaints, except as documented Cardiovascular: Cardiovascular: Reports no additional cardiovascular complaints Respiratory: Respiratory: Reports no additional respiratory complaints Gastrointestinal: Gastrointestinal: Reports no additional gastrointestinal complaints Genitourinary: Genitourinary: Reports no additional female genitourinary complaints Musculoskeletal: Musculoskeletal: Reports no additional musculoskeletal complaints Integumentary/Breasts: Skin/Breast: Reports system reviewed and no additional complaints, except as docu Neurologic: Reports system reviewed and no additional complaints, except as documented Psychiatric: Psychiatric: Reports no additional psychiatric complaints Endocrine: Endocrine: Reports no additional endocrine complaints Hematologic/Lymphatic: Hematologic/Lymphatic: Reports no additional hematologic/lymphatic complaints Allergic/Immunologic: Allergic/Immunologic: Reports no additional allergic/immunologic complaints PMFSH Past Medical History Medical History Hyperlipidemia Hypertension Lumbar radiculopathy, chronic Lumbosacral spondylosis with radiculopathy Plantar fasciitis of left foot Surgical History Surgical History History of cholecystectomy 1995 per patient questionnaire History of eye surgery 1996 per patient questionnaire Family History Family History Other Arthritis Carcinoma of colon Cerebrovascular accident Diabetes mellitus Heart disease Hypertension Social History Social History Social History: Marisel is very confident filling out medical forms. In the last 12 months she has not received assistance from an organization or program. Smoking status: Never smoker Second hand tobacco smoke exposure: No Alcohol intake: never Substance use: never Substance use type: does not use Lack of Transportation: No Lack of Food: Never True Current Housing: I Have Housing Concerned About Future Housing: No Difficulty Paying Gas/Electric Bills: No Difficulty Paying for Meds: No Currently Unemployed: No Education: Decline to Answer Difficulty w/ Childcare or Family Care: No Living arrangements: alone Occupation/Education: retired Gender identity (if verbalized by the patient): Female Spiritual care concerns: No Exam Con
[2023-02-25] MEDS: MECLIZINE HCL 25 MG TABLET PO (22:35)
[2023-02-25] MEDS: SODIUM CHLORIDE 0.9% IV 1,000 ML 999 ML IV CONT (22:37)
[2023-02-25 23:05] LABS: SARS-CoV-2 RNA PCR Negative (Negative)
[2023-02-25 23:09] LABS: Influenza A QL RT-PCR Negative (Negative); Influenza B QL RT-PCR Negative (Negative); RSV RNA, RT-PCR Negative (Negative)
[2023-02-25 23:17] VITALS: BP 144/83; PULSE 68; RESP 18; O2SAT 97
[2023-02-26 00:02] LABS: Appearance Urine Clear (Clear); Bilirubin Urine Negative (Negative); Blood Urine Negative (Negative); Color Urine Light Yellow (Yellow); Glucose Urine UA Negative (Negative); Ketones Urine Negative (Negative); Leukocyte Esterase Ur Negative LEU/UL (Negative); Nitrate Urine Negative (Negative); Protein Urine Trace (Negative); Specific Grav Ur >= 1.030 (1.010-1.020); Urobilinogen Urine 0.2 mg/dL (0.2-1.0); pH Urine 5.5 (5.0-8.0)
[2023-02-26 00:11] LABS: Add Urine Microscopic? YES; Bacteria Urine None seen /hpf; RBC Urine 0-2 /hpf (0-2); Squamous Epithelial Cell Urine None seen /hpf (Few); WBC Urine 0-3 /hpf (0-3)
--- NOTE | 2023-02-26 00:17 | PC.NURSE ---
ERP spoke c pt and pts nephew about test results and need for CTA. Pt agreeable to CTA at this time. She reports still having some dizziness c movement but it is better p taking meclizine. Pt resting, no distress, order obtained for CTA.
[2023-02-26 00:20] VITALS: BP 155/78; PULSE 74; RESP 18; O2SAT 97
[2023-02-26 02:07] VITALS: BP 142/74; PULSE 67; RESP 18; O2SAT 97
--- NOTE | 2023-02-26 02:08 | PC.NURSE ---
Pt continuing to rest, she reports her dizziness is some better, VSS. Awaiting report of CTA.
[2023-02-26 02:51] VITALS: BP 133/69; PULSE 75; RESP 20; O2SAT 98
[2023-02-26 03:01] VITALS: BP 136/76; PULSE 74; RESP 18; TEMP 36.6; O2SAT 97
== END 2023-02-26 03:13 | disposition home or self-care (01) ==
PROVIDERS: Emergency Provider Emergency Medicine; PCP Internal Medicine
DX: H81.10 Benign paroxysmal vertigo, unspecified ear (principal); R11.2 Nausea with vomiting, unspecified; E78.5 Hyperlipidemia, unspecified; I10 Essential (primary) hypertension; Z79.899 Other long term (current) drug therapy; Z79.82 Long term (current) use of aspirin; Z20.822 Contact with and (suspected) exposure to COVID-19
CPT/HCPCS: 36415; 70450; 70496; 70498; 71046; 80053; 81001; 83605; 83735; 83880; 84484; 85025; 85055; 85610; 85730; 87637; 93005; 96360; 99284; A9270; J7030; Q9967

== ENCOUNTER 2023-03-13 07:20 | Outpatient (CLI) | payer MEDICARE, BC, SELFPAY ==
--- NOTE | ~2023-03-13 | US_ITS ---
Limited Abdominal Sonogram: Real-time sonographic imaging of the right upper quadrant was performed. Clinical History: Elevated liver enzymes Findings: The liver appears mildly echogenic, with no evidence of mass lesion or bile duct dilatatio n. Main portal vein demonstrates normal direction of flow. The gallbladder is absent, compatible prio r cholecystomy. The common bile duct measures 11 mm. The visualized pancreas, aorta, and IVC are unr emarkable. Impression: Echogenic/heterogeneous liver suggests fatty infiltration versus other chronic liver disease. Status post cholecystectomy. Reviewed, dictated and finalized at location . NALIST Impression: Echogenic/heterogeneous liver suggests fatty infiltration versus other chronic liver disease. Status post cholecystectomy.
[2023-03-13 07:52] LABS: Hemoglobin 16.1 g/dL (11.7-13.8); Immature Platelet Fraction Pct 5.6 % (1.0-7.0); Mean Corpuscular HGB Conc 32.9 g/dL (32.0-36.0); Mean Corpuscular Hemoglobin 30.1 pg (27.0-31.0); Mean Corpuscular Volume 91.8 fL (78.0-102.0); Mean Platelet Volume 10.9 fl (9.2-11.8); Platelet Count Result 104 K/mm3 (150-420); Red Blood Count 5.34 M/mm3 (4.20-5.40); Red Cell Distribution Width 11.5 % (11.6-14.4); White Blood Count 3.6 K/mm3 (4.8-10.8)
[2023-03-13 08:11] LABS: Band Neutrophils Percent 0 % (0-6); Lymphocytes Absolute Manual 1.44 K/mm3 (1.1-4.5); Lymphocytes Percent Manual 40 % (18-44); Monocytes Absolute Manual 0.28 K/mm3 (0.1-0.90); Monocytes Percent Manual 8 % (3-9); Neutrophils Absolute Manual 1.87 K/mm3 (1.7-7.2); Neutrophils Percent Manual 52 % (46-73); Total Cells Counted 100
[2023-03-13 09:01] LABS: Alanine Aminotransferase 48 U/L (14-59); Albumin Level 4.5 g/dL (3.4-5.0); Alkaline Phosphatase 89 U/L (46-116); Amylase 34 U/L (25-115); Anion Gap 10 mmol/L (8-16); Aspartate Amino Transferase 33 U/L (15-37); Bilirubin,Total 1.3 mg/dL (0.00-1.00); Blood Urea Nitrogen 32 mg/dL (7-18); Calcium 9.9 mg/dL (8.5-10.1); Carbon Dioxide 28 mmol/L (21-32); Chloride 99 mmol/L (98-108); Cholesterol 174 mg/dL (0-200); Estimated Glomerular Filt Rate 49; Free T3 2.78 pg/mL (2.18-3.98); Free T4 Free Thyroxine 1.08 ng/dL (0.76-1.46); Glucose 117 mg/dL (70-99); HDL Direct 67 mg/dL (40-60); LDL Cholesterol Calculated 88 mg/dL (<130); Lipase 32 U/L (16-77); Osmolality Calculated 291 mOsm/kg (285-295); Potassium 3.9 mmol/L (3.5-5.1); Sodium 137 mmol/L (136-145); Thyroid Stimulating Hormone 2.11 uIU/mL (0.36-3.74); Total Protein 7.1 g/dL (6.4-8.2); Triglycerides 96 mg/dL (0-150); Vitamin B12 687 pg/mL (193-986)
[2023-03-13 09:20] LABS: CRP < 0.5 mg/dL (0.0-0.9)
[2023-03-13 09:23] LABS: Erythrocyte Sedimentation Rate 2 mm/hr (0-30)
== END 2023-03-13 07:21 | disposition home or self-care (01) ==
PROVIDERS: PCP Internal Medicine; Visit Provider Internal Medicine
DX: R74.8 Abnormal levels of other serum enzymes (principal); K76.0 Fatty (change of) liver, not elsewhere classified; I10 Essential (primary) hypertension; I25.10 Atherosclerotic heart disease of native coronary artery without angina pectoris; M35.3 Polymyalgia rheumatica; E78.2 Mixed hyperlipidemia; D69.6 Thrombocytopenia, unspecified; R11.2 Nausea with vomiting, unspecified; R73.01 Impaired fasting glucose; Z90.49 Acquired absence of other specified parts of digestive tract
CPT/HCPCS: 36415; 76705; 80053; 80061; 82150; 82607; 83690; 84439; 84443; 84481; 85025; 85055; 85652; 86140

== ENCOUNTER 2023-08-05 11:22 | Outpatient (CLI) | payer MEDICARE, BC, SELFPAY ==
[2023-08-05 11:52] LABS: Hematocrit 46.7 % (35.0-42.0); Hemoglobin 15.2 g/dL (11.7-13.8); Immature Platelet Fraction Pct 4.6 % (1.0-7.0); Mean Corpuscular HGB Conc 32.5 g/dL (32-36); Mean Corpuscular Hemoglobin 29.9 pg (27.0-31.0); Mean Corpuscular Volume 91.7 fL (78.0-102.0); Mean Platelet Volume 10.5 fl (9.2-11.8); Platelet Count Result 104 K/mm3 (150-420); Red Blood Count 5.09 M/mm3 (4.20-5.40); Red Cell Distribution Width 11.7 % (11.6-14.4); White Blood Count 3.7 K/mm3 (4.8-10.8)
[2023-08-05 11:53] LABS: Appearance Urine Clear (Clear); Bilirubin Urine Negative (Negative); Blood Urine Negative (Negative); Color Urine Light Yellow (Yellow); Glucose Urine UA Negative (Negative); Ketones Urine Negative (Negative); Leukocyte Esterase Ur Trace (Negative); Nitrate Urine Negative (Negative); Protein Urine Negative (Negative); Specific Grav Ur <= 1.005 (1.010-1.020); Urobilinogen Urine 0.2 mg/dL (0.2-1.0)
[2023-08-05 12:00] LABS: Add Urine Microscopic? YES
[2023-08-05 12:01] LABS: Bacteria Urine None seen /hpf; Mucus Urine Few /lpf; RBC Urine None seen /hpf (0-2); Squamous Epithelial Cell Urine Few /hpf (Few); WBC Urine 0-3 /hpf (0-3)
[2023-08-05 12:35] LABS: Alanine Aminotransferase 59 U/L (14-59); Albumin Level 4.1 g/dL (3.4-5.0); Alkaline Phosphatase 88 U/L (46-116); Anion Gap 8 mmol/L (4-12); Aspartate Amino Transferase 38 U/L (15-37); Bilirubin,Total 1.2 mg/dL (0.00-1.00); Blood Urea Nitrogen 28 mg/dL (7-18); Calcium 10.4 mg/dL (8.5-10.1); Carbon Dioxide 30 mmol/L (21-32); Chloride 101 mmol/L (98-108); Estimated Glomerular Filt Rate 51; Glucose 92 mg/dL (70-99); Osmolality Calculated 293 mOsm/kg (285-295); Potassium 4.4 mmol/L (3.5-5.1); Sodium 139 mmol/L (136-145); Total Protein 6.9 g/dL (6.4-8.2)
[2023-08-05 13:46] LABS: Band Neutrophils Percent 1 % (0-6); Neutrophils Absolute Manual 1.81 K/mm3 (1.7-7.2); Neutrophils Percent Manual 48 % (46-73); Total Cells Counted 100
[2023-08-05 13:47] LABS: Basophils Absolute Manual 0.03 K/mm3 (0-0.1); Basophils Percent Manual 1 % (0-1); Eosinophils Absolute Manual 0.03 K/mm3 (0.02-0.50); Eosinophils Percent Manual 1 % (1-6); Lymphocytes Absolute Manual 1.59 K/mm3 (1.1-4.5); Lymphocytes Percent Manual 43 % (18-44); Monocytes Absolute Manual 0.14 K/mm3 (0.1-0.90); Monocytes Percent Manual 4 % (3-9); Platelet Estimate Adequate (Adequate)
== END 2023-08-05 11:23 | disposition home or self-care (01) ==
LOC: CHSLAB 11:24
PROVIDERS: PCP Internal Medicine; Visit Provider Nurse Practitioner Family
DX: R42 Dizziness and giddiness (principal)
CPT/HCPCS: 36415; 80053; 81001; 85025; 85055

== ENCOUNTER 2023-09-09 07:37 | Outpatient (CLI) | payer MEDICARE, SELFPAY ==
[2023-09-09 07:52] LABS: Hematocrit 48.7 % (35.0-42.0); Hemoglobin 16.3 g/dL (11.7-13.8); Mean Corpuscular HGB Conc 33.5 g/dL (32-36); Mean Corpuscular Hemoglobin 30.5 pg (27.0-31.0); Mean Platelet Volume 10.2 fl (9.2-11.8); Platelet Count Result 108 K/mm3 (150-420); Red Blood Count 5.35 M/mm3 (4.20-5.40); Red Cell Distribution Width 11.9 % (11.6-14.4); White Blood Count 3.5 K/mm3 (4.8-10.8)
[2023-09-09 08:00] LABS: Appearance Urine Clear (Clear); Bilirubin Urine Negative (Negative); Blood Urine Negative (Negative); Color Urine Light Yellow (Yellow); Glucose Urine UA Negative (Negative); Ketones Urine Negative (Negative); Leukocyte Esterase Ur 1+ (Negative); Nitrate Urine Negative (Negative); Protein Urine Negative (Negative); Urobilinogen Urine 0.2 mg/dL (0.2-1.0)
[2023-09-09 08:03] LABS: Hemoglobin A1C 5.9 % (<5.7)
[2023-09-09 08:06] LABS: Add Urine Microscopic? YES; Bacteria Urine Trace /hpf; RBC Urine None seen /hpf (0-2); Squamous Epithelial Cell Urine Rare /hpf (Few); WBC Urine 0-3 /hpf (0-3)
[2023-09-09 08:34] LABS: Alanine Aminotransferase 58 U/L (14-59); Albumin Level 4.2 g/dL (3.4-5.0); Alkaline Phosphatase 93 U/L (46-116); Anion Gap 7 mmol/L (4-12); Aspartate Amino Transferase 36 U/L (15-37); Bilirubin,Total 1.2 mg/dL (0.00-1.00); Blood Urea Nitrogen 25 mg/dL (7-18); Calcium 10.3 mg/dL (8.5-10.1); Carbon Dioxide 28 mmol/L (21-32); Chloride 104 mmol/L (98-108); Cholesterol 167 mg/dL (0-200); Creatine Kinase 129 U/L (26-192); Estimated Glomerular Filt Rate 53; Glucose 126 mg/dL (70-99); HDL Direct 58 mg/dL (40-60); LDL Cholesterol Calculated 80 mg/dL (<130); Osmolality Calculated 294 mOsm/kg (285-295); Potassium 4.2 mmol/L (3.5-5.1); Sodium 139 mmol/L (136-145); Triglycerides 147 mg/dL (0-150)
== END 2023-09-09 07:38 ==
LOC: CHSLAB 07:39
PROVIDERS: PCP Internal Medicine; Visit Provider Internal Medicine
DX: I10 Essential (primary) hypertension (principal); E78.2 Mixed hyperlipidemia; I25.10 Atherosclerotic heart disease of native coronary artery without angina pectoris; N18.1 Chronic kidney disease, stage 1; R73.01 Impaired fasting glucose
CPT/HCPCS: 36415; 80053; 80061; 81001; 82550; 83036; 85027

== ENCOUNTER 2023-09-27 13:28 | Outpatient (CLI) | payer MEDICARE, BC, SELFPAY ==
[2023-09-27 13:49] LABS: Hematocrit 45.8 % (35.0-42.0); Hemoglobin 15.5 g/dL (11.7-13.8); Immature Platelet Fraction Pct 4.3 % (1.0-7.0); Mean Corpuscular HGB Conc 33.8 g/dL (32-36); Mean Corpuscular Hemoglobin 30.5 pg (27.0-31.0); Mean Platelet Volume 10.4 fl (9.2-11.8); Platelet Count Result 113 K/mm3 (150-420); Red Blood Count 5.09 M/mm3 (4.20-5.40); Red Cell Distribution Width 11.8 % (11.6-14.4)
[2023-09-27 14:30] LABS: Anion Gap 10 mmol/L (4-12); Blood Urea Nitrogen 31 mg/dL (7-18); Calcium 10.6 mg/dL (8.5-10.1); Carbon Dioxide 28 mmol/L (21-32); Chloride 102 mmol/L (98-108); Estimated Glomerular Filt Rate 51; Glucose 125 mg/dL (70-99); Osmolality Calculated 297 mOsm/kg (285-295); Potassium 4.3 mmol/L (3.5-5.1); Sodium 140 mmol/L (136-145)
== END 2023-09-27 13:29 | disposition home or self-care (01) ==
LOC: CHSLAB 13:30
PROVIDERS: PCP Internal Medicine; Visit Provider Internal Medicine
DX: I10 Essential (primary) hypertension (principal); D64.9 Anemia, unspecified
CPT/HCPCS: 36415; 80048; 85027; 85055; 90853

== ENCOUNTER 2023-10-10 13:52 | Outpatient (CLI) | payer MEDICARE, SELFPAY ==
[2023-10-10 14:07] LABS: Hematocrit 45.9 % (35.0-42.0); Immature Platelet Fraction Pct 3.9 % (1.0-7.0); Mean Corpuscular HGB Conc 32.7 g/dL (32-36); Mean Corpuscular Hemoglobin 30.1 pg (27.0-31.0); Mean Corpuscular Volume 92.2 fL (78.0-102.0); Mean Platelet Volume 10.2 fl (9.2-11.8); Platelet Count Result 99 K/mm3 (150-420); Red Blood Count 4.98 M/mm3 (4.20-5.40); Red Cell Distribution Width 11.9 % (11.6-14.4); White Blood Count 4.3 K/mm3 (4.8-10.8)
[2023-10-10 14:08] LABS: Add Urine Microscopic? NO; Appearance Urine Clear (Clear); Bilirubin Urine Negative (Negative); Blood Urine Negative (Negative); Color Urine Light Yellow (Yellow); Glucose Urine UA Negative (Negative); Ketones Urine Negative (Negative); Leukocyte Esterase Ur Negative (Negative); Nitrate Urine Negative (Negative); Protein Urine Negative (Negative); Urobilinogen Urine 0.2 mg/dL (0.2-1.0)
[2023-10-10 14:39] LABS: Anion Gap 7 mmol/L (4-12); Blood Urea Nitrogen 27 mg/dL (7-18); Calcium 10.4 mg/dL (8.5-10.1); Carbon Dioxide 30 mmol/L (21-32); Chloride 103 mmol/L (98-108); Estimated Glomerular Filt Rate 55; Glucose 157 mg/dL (70-99); Osmolality Calculated 298 mOsm/kg (285-295); Sodium 140 mmol/L (136-145)
== END 2023-10-10 13:53 | disposition home or self-care (01) ==
LOC: CHSLAB 13:54
PROVIDERS: PCP Internal Medicine; Visit Provider Nurse Practitioner Family
DX: I10 Essential (primary) hypertension (principal)
CPT/HCPCS: 36415; 80048; 81003; 85027; 85055

== ENCOUNTER 2023-11-18 07:15 | Outpatient (CLI) | payer MEDICARE, SELFPAY ==
[2023-11-18 07:35] LABS: Hemoglobin 15.4 g/dL (11.7-13.8); Immature Platelet Fraction Pct 3.9 % (1.0-7.0); Mean Corpuscular HGB Conc 32.8 g/dL (32-36); Mean Corpuscular Hemoglobin 30.4 pg (27.0-31.0); Mean Corpuscular Volume 92.7 fL (78.0-102.0); Mean Platelet Volume 10.9 fl (9.2-11.8); Platelet Count Result 100 K/mm3 (150-420); Red Blood Count 5.07 M/mm3 (4.20-5.40); Red Cell Distribution Width 11.9 % (11.6-14.4)
[2023-11-18 08:04] LABS: Band Neutrophils Percent 0 % (0-6); Lymphocytes Absolute Manual 1.23 K/mm3 (1.1-4.5); Lymphocytes Percent Manual 41 % (18-44); Monocytes Absolute Manual 0.24 K/mm3 (0.1-0.90); Monocytes Percent Manual 8 % (3-9); Neutrophils Absolute Manual 1.53 K/mm3 (1.7-7.2); Neutrophils Percent Manual 51 % (46-73); Platelet Estimate Slightly Decreased (Adequate); Total Cells Counted 100
== END 2023-11-18 07:16 | disposition home or self-care (01) ==
PROVIDERS: PCP Internal Medicine; Visit Provider Internal Medicine
DX: D61.818 Other pancytopenia (principal)
CPT/HCPCS: 36415; 85025; 85055

== ENCOUNTER 2023-12-03 20:55 | Emergency (ER) | payer MEDICARE, BC, SELFPAY ==
[2023-12-03 20:55] VITALS: BP 195/101; PULSE 92; RESP 20; TEMP 36.6; O2SAT 97
--- NOTE | 2023-12-03 21:49 | ED.GENADULT ---
HPI - General Adult General Chief complaint: Headache Stated complaint: headache, chills after flu injection Source: patient Mode of arrival: ambulatory Limitations: no limitations History of Present Illness HPI narrative: 88 year old female presents to the Emergency Department complaining of headache, body aches, achy joints. Onset today. Patient got flu shot today. No vomiting or diarrhea. No cough or chest congestion. No known exposure. Onset (ago): hour(s) Relieving factors: none Exacerbating factors: none Associated symptoms: headaches Treatments prior to arrival: none Related Data Home Medications Medication Instructions Recorded Confirmed amitriptyline 10 mg tablet 10 mg PO DAILY 07/19/20 02/26/23 brimonidine 0.1 % eye drops 0.1 drp RIGHT EYE BID 07/19/20 02/26/23 (Alphagan P) losartan 100 mg tablet 100 mg PO DAILY 07/19/20 02/26/23 metoprolol tartrate 100 mg tablet 100 mg PO BID 07/19/20 02/26/23 pravastatin 40 mg tablet 40 mg PO DAILY 07/19/20 02/26/23 travoprost 0.004 % eye drops 1 drp RIGHT EYE HS 07/19/20 02/26/23 aspirin 81 mg capsule 81 mg PO DAILY 02/27/21 02/26/23 multivitamin 1 tablet PO DAILY 02/27/21 02/26/23 brimonidine 0.2 % eye drops 1 drp ophthalmic (eye) DAILY 11/01/22 02/26/23 latanoprost 0.005 % eye drops 1 drp EACH EYE HS 02/26/23 02/26/23 spironolactone 25 mg tablet 25 mg PO DAILY 02/26/23 02/26/23 Allergies Allergy/AdvReac Type Severity Reaction Status Date / Time hydrocodone [From [place]] Allergy Unknown Verified 01/29/23 09:08 Review of Systems Review of Systems: All systems reviewed & are unremarkable except as noted in HPI and below Constitutional: Constitutional: Reports as per HPI, Denies chills and Denies fever(s) Eyes: Eyes: Reports as per HPI ENT: Reports system reviewed and no additional complaints, except as documented and Denies sore throat Cardiovascular: Cardiovascular: Reports as per HPI and Denies chest pain Respiratory: Respiratory: Reports as per HPI, Denies cough and Denies dyspnea Gastrointestinal: Gastrointestinal: Reports as per HPI, Denies diarrhea, Denies nausea and Denies vomiting Genitourinary: Genitourinary: Reports no additional female genitourinary complaints Musculoskeletal: Musculoskeletal: Reports no additional musculoskeletal complaints, Reports myalgias and Reports arthralgias Integumentary/Breasts: Skin/Breast: Reports system reviewed and no additional complaints, except as docu Neurologic: Reports system reviewed and no additional complaints, except as documented PMFSH Past Medical History Medical History Hyperlipidemia Hypertension Lumbar radiculopathy, chronic Lumbosacral spondylosis with radiculopathy Plantar fasciitis of left foot Surgical History Surgical History History of cholecystectomy 1995 per patient questionnaire History of eye surgery 1996 per patient questionnaire Family History Family History Other Arthritis Carcinoma of colon Cerebrovascular accident Diabetes mellitus Heart disease Hypertension Social History Social History Social History: Marisel is very confident filling out medical forms. In the last 12 months she has not received assistance from an organization or program. Smoking status: Never smoker Second hand tobacco smoke exposure: No Alcohol intake: never Substance use: never Substance use type: does not use Lack of Transportation: No Lack of Food: Never True Current Housing: I Have Housing Concerned About Future Housing: No Difficulty Paying Gas/Electric Bills: No Difficulty Paying for Meds: No Currently Unemployed: No Education: Decline to Answer Difficulty w/ Childcare or Family Care: No Living arrangements: alone Occupation/Education:
[2023-12-03 22:00] VITALS: BP 145/88; PULSE 84; RESP 18; O2SAT 94
[2023-12-03 22:33] LABS: SARS-CoV-2 RNA PCR Negative (Negative)
[2023-12-03 22:34] LABS: Influenza A QL RT-PCR Negative (Negative); Influenza B QL RT-PCR Negative (Negative); RSV RNA, RT-PCR Negative (Negative)
[2023-12-03 22:38] LABS: Add Urine Microscopic? NO; Appearance Urine Clear (Clear); Bilirubin Urine Negative (Negative); Blood Urine Negative (Negative); Color Urine Light Yellow (Yellow); Glucose Urine UA Negative (Negative); Ketones Urine Negative (Negative); Leukocyte Esterase Ur Negative (Negative); Nitrate Urine Negative (Negative); Protein Urine Negative (Negative); Specific Grav Ur 1.015 (1.010-1.020); Urobilinogen Urine 0.2 mg/dL (0.2-1.0)
[2023-12-03 22:55] VITALS: BP 143/89; PULSE 87; RESP 18; TEMP 37.2; O2SAT 94
== END 2023-12-03 22:55 | disposition home or self-care (01) ==
PROVIDERS: Emergency Provider Emergency Medicine; PCP Internal Medicine
DX: B34.9 Viral infection, unspecified (principal); I10 Essential (primary) hypertension; E78.5 Hyperlipidemia, unspecified; Z79.82 Long term (current) use of aspirin; Z20.822 Contact with and (suspected) exposure to COVID-19
CPT/HCPCS: 81003; 87637; 99283

== ENCOUNTER 2023-12-24 10:00 | Outpatient (RCR) | payer MEDICARE, BC, SELFPAY ==
--- NOTE | 2023-09-26 12:46 | P.HP_ITS ---
[facility] HPI HPI Referral Source PCP Visit Attended By patient and staff History Obtained From patient Chief Complaint psychotic symptoms History of Present Illness this is an 88-year-old white female with no previous psychiatric history prior to about 6 months ago when she had to have her beloved dog euthanized. She has been grieving the loss terribly, and since then she has been experiencing auditory, tactile, and visual hallucinations when attempting to go to sleep at night. She describes seeing, hearing, feeling both a good and a bad spirit that crawl up and down her legs. She describes them as feeling hot and biting at her skin. Her PCP put her on gabapentin, which has helped with neuropathy. But other times she will kick them off the bed or the end of the couch seeing them run often disappear. At times she hears them bark and reports they have manifested themselves to look like spiders at 1 time. She also attempts to trick them by moving back and forth from her bed to the couch when trying to sleep at night. She denies other depressive and anxiety symptoms or manic symptoms, other than insomnia, As well as anxious mood. Patient is being seen by Dr. Spicer, who has her on Xanax 0.25 mg q.h.s. and amitriptyline 10 mg q.h.s.. She does report occasional falls. HPI: Quality & Associated Signs and Symptoms anxiety/panic attacks, delusions/paranoia ( Spirits ) and auditory/visual hallucinations ( spirits ) Evaluation of Sleep difficulty falling asleep, frequent awakening and early nelida kening Past History Psychosocial Hx: grew up in [facility]. Good childhood. Graduated high school. Worked for [employer] for 36 years. Never , no children. She also has been very active in [employer], or straining and showing, and barrel racing. Substance Use Hx: Denies use of alcohol, tobacco, illicit drugs, marijuana Past Medical Hx: hypertension, insomnia, osteoarthritis, chronic pain, fatty liver, HLD, CKD 1, coronary artery disease, polymyalgia rheumatica, rosacea, IBS, glaucoma, plantar fascial fibromatosis, GERD, polyneuropathy, vertigo. Patient saw Dr. Spicer a week ago and he recommended checking lab work, Including labs in 6 months such as hemoglobin A1c, and urine microalbumin, CK, CMP, lipids. Patient says that she had an EKG and a head CT recently. Diastolic blood pressure this morning was in the 50s. She is on metoprolol. Denies any recent medication changes which may have contributed to current cognitive issues. She is also on alprazolam and amitriptyline. head CT from 02/26/2023 reveals mild chronic white matter changes and dilation of ventricles and subarachnoid spaces. EKG from 02/25/2019 for reveals QTC of 431, low QRS voltage in precordial leads, minimal Q-waves high lateral leads, suggesting inferior infarct. Past Surgical Hx: Laminectomy, lumbar region. Catheterization 06/27/2017 reveals 50% blockage of LAD. Past Psych Hx: None prior to recent events. 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 pleasant and cooperative Pain Yes Pain Location generalized Pain Characteristics chronic Psychiatric Exam Level of Consciousness alert Orientation person, place, time and situation Speech normal rate/tone/volume/prosody and coherent Language able to comprehend questions Mood mildly anxious Affect full range, appropriate and congruent Thought Processes/Form logical, linear and goal directed Thought Content anxious mood, preoccupation with symptoms Delusions bizarre Delusions Description spirits Homicidal/Assaultive Ideation none Suicidal Ideation none Hallucinations auditory, visual and tactile Hallucination Description spirits , only at night Attention/Concentration focused Attention/Concentration Testing Methods observation/interview Short Term Memory Impairment none STM Testing Methods clinical interview (assessment/observation) 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 Memory Impairment none LTM Testing Methods recall of biographical information Intellectual Functioning roughly average Intellectual Functioning Assessed By fund of knowledge Insight fair Insight Assessed By ability to recognize & acknowledge mental illness, ability to understand the implications of mental illness, understanding of treatment options and ability to comply with treatment Judgement fair Judgement Assessed By exploring recent decision-making MMSE slums 26, GDS 6, Zung 36/49 Patient Assets willing to accept treatment, able to perform ADLs Patient Liabilities new onset of psychosis, recent loss of dog, atherosclerosis Assessment and Plan Assessment and Plan Diagnosis F 29- unspecified psychotic disorder, F 41.9-unspecified anxiety disorder Plan begin IOP. Supportive / cognitive therapy. Patient presents with new onset of psychosis which would most likely be secondary to a medical/ physiological condition. Likely not psychotic depression as patient denies depressive symptoms. 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 Would recommend discontinuing alprazolam and amitriptyline, as both could cause cognitive impairment. recommend checking CBC, CMP, TSH, lipids, UA. Suggest Seroquel 12.5-25 mg q.h.s. follow-up in [address] Spicer as well. Admission Overview Reason for Admission to Intensive Outpatient Program patient failed to benefit from lower level of care, not at baseline level of functioning, expectation of improvement w/continued treatment at this level of care and high risk for relapse Treatment To Be Provided medication management and group/individual/rec therapy Coordination of Care Education Provided diagnosis, psychoeducation and phychopharmacological education Coordination of Care Family Involvement no Initial Discharge Disposition/Level of snf and PCP Medical Necessity GENERAL CRITERIA Pt demonstrates a willingness to participate in program at this level., There is a clear and reasonable expectation that pt will benefit and Pt has a current DSM Diagnosis that is appropriate for admission INCLUSION CRITERIA Pts symptoms are severe enough that: Hospitalization is possible without intervention and Current level of OP treatment is not ef fectively reducing symptoms. Level of Functioning Severe Impairment in Multiple Areas of Daily Life Psychiatric Symptoms Moderate to Severe Risk and Dangerousness Mild Instability Commitment to Treatment and Program Able to Sustain Treatment Contract with Little Support Social Support Able to Form and Maintain Relationships Outside of Treatment Certification Statement Certification Statement I believe this patient requires the services of the Intensive Outpatient Program and that there is reasonable expectation that the patient will make timely and significant practical improvement in the presenting acute symptoms as a result of this Intensive Outpatient Program. I do not believe this patient will benefit from a lesser level of care or could be adequately and appropriately treated in a less restrictive environment. My decision is based on the preceding clinical information. Initial Treatment Plan - IOP Initial Treatment Plan Reason for Admit Anxiety and psychotic symptoms Reasons for Level of Care impaired social, familial, occupational functioning, acute disturbance of affect, behavior or thinking, need for structured therapeutic milieu and failure of less intensive treatment options LOC Explaination patient is on psychotropic medication and still symptomatic- require psychotherapy Date Identified 09/26/23 Objective The patient will attend all behavioral health and medical appointments as scheduled within the first two weeks of admission to the program. Target Date 10/10/23 Plan of Intervention/Modality medication management and psychotherapy Services to be provided by physician medication management Certification Statement I certify that this patient requires outpatient services, and services will be furnished under the supervision and care of a physician, and under an individual, written plan of treatment.
--- NOTE | 2023-09-30 14:10 | PC.NURSE ---
Dr. Spicer's office on 09/30/23 called in the patient's Seroquel 12.5mg PO every evening.
[2023-10-01 10:29] VITALS: BP 145/66; PULSE 60; RESP 20; TEMP 36.9; O2SAT 98
--- NOTE | 2023-10-03 09:49 | PC.NURSE ---
No nursing group due to MD visit.
[2023-10-03 10:19] VITALS: BP 133/72; PULSE 60; RESP 20; TEMP 36.3; O2SAT 96
--- NOTE | 2023-10-03 12:23 | P.PN_ITS ---
Progress HPI Progress HPI Visit Attended By patient and staff History Obtained From patient Chief Complaint one-week admission follow-up, med check HPI patient is being seen for follow-up. At our initial visit we started her on Seroquel 12.5 mg q.h.s.. I spoke with Dr. Spicer prior to this and he was in agreement. He also discontinued her alprazolam and amitriptyline. Patient has only been on the Seroquel for 3 days, stating that the 1st night she did see any difference, but the last 2 nights the psychosis has been slightly improved. Sleep may be better as well. She is agreeable to waiting another week to decide whether to increase the medication. Patient also started group, enjoys the program participates well, although she does admit she has a private person . Average Number of Hours of Sleep 7 Sleep Quality difficulty falling asleep and frequent awakening Change in PMFSH Releveant to Presenting Illness No Describe Changes in PMFSH Slight improvement as above Review of Systems Review of Systems Constitutional Reports other ( hyperlipidemia, chronic kidney disease) Eyes Reports other ( glaucoma) ENT Reports WNL Respiratory Reports WNL Cardiovascular Reports other ( coronary artery disease, hypertension, cerebral atherosclerosis) Gastrointestinal Reports other ( GERD, fatty liver) Musculoskeletal Reports other ( osteoarthritis, chronic pain, polymyalgia rheumatica) Neurologic Reports other ( vertigo, polyneuropathy) Skin Reports WNL ADL's Reports WNL Exam Physical Exam Review of Lab Studies yes Significant Lab Findings cerebral atherosclerosis and ventricular dilatation Hygiene good General Behavior/Attitude Toward Examiner pleasant and cooperative Pain Yes Pain Location generalized Pain Characteristics chronic Psychiatric Exam Level of Consciousness alert Orientation person, place, time and situation Speech normal rate/tone/volume/prosody and coherent Language able to comprehend questions Mood mildly anxious Affect full range, appropriate and congruent Thought Processes/Form logical, linear and goal directed Thought Content anxious mood, preoccupation with symptoms Delusions Description spirits Homicidal/Assaultive Ideation none Suicidal Ideation none Hallucinations auditory, visual and tactile Hallucination Description spirits , only at night, improved Attention/Concentration focused Attention/Concentration Testing Methods observation/interview Short Term Memory Impairment none STM Testing Methods clinical interview (assessment/observation) [facility] Memory Impairment none LTM Testing Methods recall of biographical information Intellectual Functioning roughly average Intellectual Functioning Assessed By fund of knowledge Insight fair and improving Insight Assessed By ability to recognize & acknowledge mental illness, ability to understand the implications of mental illness, understanding of treatment options and ability to comply with treatment Judgement fair and improving Judgement Assessed By exploring recent decision-making MMSE n/a Patient Assets patient is willing to accept treatment, able to perform ADLs Patient Liabilities new onset of psychosis, recent loss of dog, atherosclerosis Assessment and Plan Clinical Impression/Diag Clinical Impression/Diagnosis F 29, F 41.9, some improvement. Will continue same dose of Seroquel and see in 1 week Progress Overview Reason for Continued Services in an Intensive Outpatient Program continued impaired mood and.or depression, patient would decompenste at a lower level of care, not at baseline level of functioning and high risk for relapse Treatment To Be Provided medication management and group/individual/rec therapy Discharge Disposition/Level of Care PCP Anticipated Discharge 8-12 weeks Certification Statement Certification Statement I believe this patient requires the services of the Intensive Outpatient Program and that there is reasonable expectation that the patient will make timely and significant practical improvement in the presenting acute symptoms as a result of this Intensive Outpatient Program. I do not believe this patient will benefit from a lesser level of care or could be adequately and appropriately treated in a less restrictive environment. My decision is based on the preceding clinical information.
--- NOTE | 2023-10-08 09:42 | PC.NURSE ---
No nursing group due to nurse meeting.
[2023-10-08 10:20] VITALS: BP 140/70; PULSE 60; RESP 20; TEMP 36.3; O2SAT 99
--- NOTE | 2023-10-10 08:58 | SLSTHERAPY ---
10/10/2023 Phone call received from Marisel canceling 10/11/2023 group attendance due to illness; Marisel is scheduled to return to group 10/14/2023, 8:59
[2023-10-15 10:27] VITALS: BP 148/88; PULSE 60; RESP 20; TEMP 36.7; O2SAT 96
--- NOTE | 2023-10-17 09:41 | PC.NURSE ---
No nursing group due to MD visit.
[2023-10-17 10:22] VITALS: BP 148/78; PULSE 82; RESP 20; TEMP 36.6; O2SAT 99
[2023-10-22 10:18] VITALS: BP 126/71; PULSE 72; RESP 20; TEMP 36.3; O2SAT 98
--- NOTE | 2023-10-24 10:11 | PC.NURSE ---
No nursing group due to MD visit.
[2023-10-24 10:48] VITALS: BP 138/76; PULSE 58; RESP 20; TEMP 36.3; O2SAT 99
--- NOTE | 2023-10-24 12:08 | P.PN_ITS ---
Progress HPI Progress HPI Visit Attended By patient and staff History Obtained From patient Chief Complaint Three week follow-up for psychosis, anxiety HPI this is a routine visit. Patient is being seen for psychosis and anxiety. She is on Seroquel 12.5 mg q.h.s. and although she is still experiencing hallucinations she says this has significantly improved she is sleeping better. She complains of being dizzy in the morning and it sounds like Dr. Spicer discontinued her spironolactone. Her alprazolam and amitriptyline had already been stopped. Mood is less anxious, patient enjoys the program and participates well. Average Number of Hours of Sleep 7 Sleep Quality frequent awakening Change in PMFSH Releveant to Presenting Illness Yes Describe Changes in PMFSH Improvement in psychosis as above Review of Systems Review of Systems Constitutional Reports denies change Eyes Reports other ( glaucoma) ENT Reports WNL Respiratory Reports WNL Cardiovascular Reports other ( coronary artery disease, hypertension, cerebral atherosclerosis) Gastrointestinal Reports other ( GERD, fatty liver) Musculoskeletal Reports other ( osteoarthritis, chronic pain, polymyalgia rheumatica) Neurologic Reports other ( vertigo, polyneuropathy) Skin Reports WNL ADL's Reports WNL Exam Physical Exam Review of Lab Studies n/a Hygiene good General Behavior/Attitude Toward Examiner pleasant and cooperative Pain Yes Pain Location generalized Pain Characteristics chronic Psychiatric Exam Level of Consciousness alert Orientation person, place, time and situation Speech normal rate/tone/volume/prosody and coherent Language able to comprehend questions Mood less anxious Affect full range, appropriate and congruent Thought Processes/Form logical, linear and goal directed Thought Content diminished psychotic symptoms Delusions bizarre Delusions Description spirits , improved Homicidal/Assaultive Ideation none Suicidal Ideation none Hallucinations visual and tactile Hallucination Description spirits only at night, improved Attention/Concentration focused Attention/Concentration Testing Methods observation/interview Short Term Memory Impairment none STM Testing Methods clinical interview (assessment/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) 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 Memory Impairment none LTM Testing Methods recall of biographical information Intellectual Functioning roughly average Intellectual Functioning Assessed By fund of knowledge and current events Insight fair and improving Insight Assessed By ability to recognize & acknowledge mental illness, ability to understand the implications of mental illness, understanding of treatment options and ability to comply with treatment Judgement fair and improving Judgement Assessed By exploring recent decision-making MMSE n/a Patient Assets patient is willing to accept treatment, able to perform ADLs Patient Liabilities new onset of psychosis, recent loss of dog, atherosclerosis Assessment and Plan Clinical Impression/Diag Clinical Impression/Diagnosis F 29, F 41.9, improved. Monitor meds, continue IOP Progress Overview0 Reason for Continued Services in an Intensive Outpatient Program continued impaired mood and.or depression, patient would decompenste at a lower level of care, not at baseline level of functioning and high risk for relapse Treatment To Be Provided medication management and group/individual/rec therapy Discharge Disposition/Level of Care PCP Anticipated Discharge 8-12 weeks Certification Statement Certification Statement I believe this patient requires the services of the Intensive Outpatient Program and that there is reasonable expectation that the patient will make timely and significant practical improvement in the presenting acute symptoms as a result of this Intensive Outpatient Program. I do not believe this patient will benefit from a lesser level of care or could be adequately and appropriately treated in a less restrictive environment. My decision is based on the preceding clinical information.
--- NOTE | 2023-10-24 12:15 | WPDSLSPROGRE ---
Assessment and Plan Certification Statement Certification Statement I believe this patient requires the services of the Intensive Outpatient Program and that there is reasonable expectation that the patient will make timely and significant practical improvement in the presenting acute symptoms as a result of this Intensive Outpatient Program. I do not believe this patient will benefit from a lesser level of care or could be adequately and appropriately treated in a less restrictive environment. My decision is based on the preceding clinical information.
--- NOTE | 2023-10-29 09:20 | SLSTHERAPY ---
10/29/2023 Phone call received from Marisel canceling attendance for group today due to illness; Marisel is scheduled to return to group 10/31/2023. 9:21
--- NOTE | 2023-10-31 09:36 | PC.NURSE ---
No nursing group due to MD visit.
[2023-10-31 10:12] VITALS: BP 152/84; PULSE 62; RESP 20; TEMP 36.6; O2SAT 98
[2023-11-05 11:37] VITALS: BP 144/82; PULSE 73; RESP 20; TEMP 36.3; O2SAT 100
--- NOTE | 2023-11-07 09:44 | PC.NURSE ---
No nursing group due to MD visit.
[2023-11-07 10:19] VITALS: BP 131/82; PULSE 60; RESP 20; TEMP 36.6; O2SAT 96
[2023-11-12 10:07] VITALS: BP 124/68; PULSE 58; RESP 18; TEMP 36.6; O2SAT 96
[2023-11-14 10:16] VITALS: BP 132/77; PULSE 61; RESP 20; TEMP 36.6; O2SAT 97
--- NOTE | 2023-11-14 10:26 | PC.NURSE ---
No nursing group due to MD visit.
--- NOTE | 2023-11-14 12:43 | P.PN_ITS ---
Progress HPI Progress HPI Visit Attended By patient and staff History Obtained From patient Chief Complaint 3 week follow-up for psychosis, anxiety HPI this is a routine visit. Patient is being seen for psychosis and anxiety. She continues on Seroquel 12.5 mg q.h.s. and although she still experiences hallucinations at times these have significantly improved and she is sleeping better. Dizziness is slowly resolving. Mood is less anxious, patient enjoys the program and participates well. She is somewhat stressed about a yd sale she is having tomorrow and some home remodeling that will be done in the next few weeks. it sounds like that the hallucinations get worse whenever she is under stress. Average Number of Hours of Sleep 7 Sleep Quality sleep throughout the night Change in PMFSH Releveant to Presenting Illness Yes Describe Changes in PMFSH Improvement as described above Review of Systems Review of Systems Constitutional Reports denies change Eyes Reports other ( glaucoma) ENT Reports WNL Respiratory Reports WNL Cardiovascular Reports other ( coronary artery disease, hypertension, cerebral atherosclerosis) Gastrointestinal Reports other ( GERD, fatty liver) Musculoskeletal Reports other ( osteoarthritis, chronic pain, polymyalgia rheumatica) Neurologic Reports other ( vertigo, polyneuropathy) Skin Reports WNL ADL's Reports WNL Exam Physical Exam Review of Lab Studies n/a Hygiene good General Behavior/Attitude Toward Examiner pleasant and cooperative Pain Yes Pain Location generalized Pain Characteristics chronic Psychiatric Exam Level of Consciousness alert Orientation person, place, time and situation Speech normal rate/tone/volume/prosody and coherent Language able to comprehend questions Mood less anxious Affect full range, appropriate and congruent Thought Processes/Form logical, linear and goal directed Thought Content diminished anxiety and psychotic symptoms Delusions bizarre Delusions Description spirits , improved Homicidal/Assaultive Ideation none Suicidal Ideation none Hallucinations visual and tactile Hallucination Description Spirits Attention/Concentration focused Attention/Concentration Testing Methods observation/interview Short Term Memory Impairment none STM Testing Methods clinical interview (assessment/observation) [facility] Memory Impairment none LTM Testing Methods recall of biographical information Intellectual Functioning roughly average Intellectual Functioning Assessed By fund of knowledge Insight fair and improving Insight Assessed By ability to recognize & acknowledge mental illness, ability to understand the implications of mental illness, understanding of treatment options and ability to comply with treatment Judgement fair and improving Judgement Assessed By exploring recent decision-making MMSE n/a Patient Assets patient is willing to accept treatment, able to perform ADLs Patient Liabilities new onset of psychosis, recent loss of dog, atherosclerosis Assessment and Plan Clinical Impression/Diag Clinical Impression/Diagnosis F 29, F 41.9, progressing well. Monitor meds, continue IOP Progress Overview Reason for Continued Services in an Intensive Outpatient Program continued impaired mood and.or depression, patient would decompenste at a lower level of care, not at baseline level of functioning and high risk for relapse Treatment To Be Provided medication management and group/individual/rec therapy Discharge Disposition/Level of Care PCP Anticipated Discharge 8-12 weeks Certification Statement Certification Statement I believe this patient requires the services of the Intensive Outpatient Program and that there is reasonable expectation that the patient will make timely and significant practical improvement in the presenting acute symptoms as a result of this Intensive Outpatient Program. I do not believe this patient will benefit from a lesser level of care or could be adequately and appropriately treated in a less restrictive environment. My decision is based on the preceding clinical information.
[2023-11-19 09:37] VITALS: BP 135/86; PULSE 62; RESP 20; TEMP 36.1; O2SAT 98
--- NOTE | 2023-11-21 09:51 | PC.NURSE ---
No nursing group due to MD visit.
[2023-11-21 10:04] VITALS: BP 152/86; PULSE 64; RESP 18; TEMP 36.9; O2SAT 99
--- NOTE | 2023-11-26 13:49 | PC.NURSE ---
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
--- NOTE | 2023-11-28 09:24 | PC.NURSE ---
No nursing group due to MD visit.
[2023-11-28 10:37] VITALS: BP 154/66; PULSE 62; RESP 20; TEMP 36.2; O2SAT 98
[2023-12-03 10:39] VITALS: BP 145/75; PULSE 56; RESP 18; TEMP 36.2; O2SAT 99
[2023-12-05 10:26] VITALS: BP 143/70; PULSE 62; RESP 20; TEMP 36.6; O2SAT 99
--- NOTE | 2023-12-05 10:47 | PC.NURSE ---
No nursing group due to MD visit.
--- NOTE | 2023-12-05 11:58 | P.PN_ITS ---
Progress HPI Progress HPI Visit Attended By patient and staff History Obtained From patient Chief Complaint Three week follow-up for psychosis, anxiety HPI this is a routine follow-up. Patient is being seen for psychosis and anxiety. She continues on Seroquel but increased her dose on her own to 25 mg q.h.s. a few days ago as she felt that the original dose was not helping quite as much. She says she is doing pretty well and does not have that sensation of ill the night of being attacked . Denies any side effects to the increased dose. In therapy she is working on anxiety reduction, among other topics. Had a minor fall a few weeks ago but sustained no serious injury. She got a flu shot this week and experienced a reaction of shaking, aching joints, nausea, and went to the ER in the evening. It sounds like that they simply reassured her that the symptoms would pass and in fact this was the case. Sleep and appetite are adequate. Average Number of Hours of Sleep 7 Sleep Quality sleep throughout the night Change in PMFSH Releveant to Presenting Illness Yes Describe Changes in PMFSH Improvement in psychosis, reaction to flu shot Review of Systems Review of Systems Constitutional Reports other ( reaction to flu shot) Eyes Reports other ( glaucoma) ENT Reports WNL Respiratory Reports WNL Cardiovascular Reports other ( coronary artery disease, hypertension, cerebral atherosclerosis) Gastrointestinal Reports other ( GERD, fatty liver) Musculoskeletal Reports other ( osteoarthritis, chronic pain, polymyalgia rheumatica) Neurologic Reports other ( vertigo, polyneuropathy) Skin Reports WNL ADL's Reports WNL Exam Physical Exam Review of Lab Studies n/a Hygiene good General Behavior/Attitude Toward Examiner pleasant and cooperative Pain No Psychiatric Exam Level of Consciousness alert Orientation person, place, time and situation Speech normal rate/tone/volume/prosody and coherent Language able to comprehend questions Mood less anxious Affect full range, appropriate and congruent Thought Processes/Form logical, linear and goal directed Thought Content diminished anxiety and psychotic symptoms Delusions bizarre Delusions Description spirits improved Homicidal/Assaultive Ideation none Suicidal Ideation none Hallucinations visual and tactile Hallucination Description spirits , improved Attention/Concentration focused Attention/Concentration Testing Methods observation/interview Short Term Memory Impairment none STM Testing Methods clinical interview (assessment/observation) Shorthand Reporter Memory Impairment none LTM Testing Methods recall of biographical information Intellectual Functioning roughly average Intellectual Functioning Assessed By current events Insight fair and improving Insight Assessed By ability to recognize & acknowledge mental illness, ability to understand the implications of mental illness, understanding of treatment options and ability to comply with treatment Judgement fair and improving Judgement Assessed By exploring recent decision-making MMSE n/a Patient Assets patient is willing to accept treatment, able to perform ADLs Patient Liabilities new onset of psychosis, recent loss of dog, atherosclerosis Assessment and Plan Clinical Impression/Diag Clinical Impression/Diagnosis F 29, F 41.9, progressing well. Increase Seroquel to 25 mg q.h.s., monitor meds, continue IOP Progress Overview Reason for Continued Services in an Intensive Outpatient Program continued impaired mood and.or depression, patient would decompenste at a lower level of care, not at baseline level of functioning and high risk for relapse Treatment To Be Provided medication management and group/individual/rec therapy Discharge Disposition/Level of Care PCP Anticipated Discharge 4-6 weeks Certification Statement Certification Statement I believe this patient requires the services of the Intensive Outpatient Program and that there is reasonable expectation that the patient will make timely and significant practical improvement in the presenting acute symptoms as a result of this Intensive Outpatient Program. I do not believe this patient will benefit from a lesser level of care or could be adequately and appropriately treated in a less restrictive environment. My decision is based on the preceding clinical information.
[2023-12-10 10:03] VITALS: BP 135/76; PULSE 60; RESP 20; TEMP 37; O2SAT 97
--- NOTE | 2023-12-12 09:50 | PC.NURSE ---
No nursing group due to MD visit.
[2023-12-12 11:50] VITALS: BP 140/65; PULSE 73; RESP 20; TEMP 36.2; O2SAT 97
[2023-12-17 10:08] VITALS: BP 139/68; PULSE 60; RESP 20; TEMP 36.6; O2SAT 99
[2023-12-19 09:56] VITALS: BP 142/70; PULSE 60; RESP 20; TEMP 36.6; O2SAT 99
--- NOTE | 2023-12-19 10:31 | PC.NURSE ---
No nursing group due to MD visit.
--- NOTE | 2023-12-24 07:11 | PC.NURSE ---
No nursing group due to nurse meeting.
[2023-12-24 14:12] VITALS: BP 148/86; PULSE 60; RESP 18; TEMP 36.3; O2SAT 97
== END 2023-12-25 23:59 | disposition home or self-care (01) ==
LOC: CHSSENLIFE 10:00
PROVIDERS: PCP Internal Medicine; Visit Provider Psychiatry & Neurology Psychiatry
DX: F41.9 Anxiety disorder, unspecified (principal); F29 Unspecified psychosis not due to a substance or known physiological condition
CPT/HCPCS: 90792; 90853; 99213; 99214; G0463

== ENCOUNTER 2024-01-02 10:00 | Outpatient (RCR) | payer MEDICARE, BC, SELFPAY ==
[2023-12-26 00:02] VITALS: BP 148/86; PULSE 60; RESP 18; TEMP 36.3; O2SAT 97
[2023-12-26 10:33] VITALS: BP 138/88; PULSE 66; RESP 20; TEMP 36.9; O2SAT 97
--- NOTE | 2023-12-26 11:15 | PC.NURSE ---
No nursing group due to MD visit.
[2023-12-31 10:11] VITALS: BP 145/69; PULSE 60; RESP 20; TEMP 36.4; O2SAT 98
--- NOTE | 2024-01-02 09:19 | PC.NURSE ---
No nursing group due to MD visit.
[2024-01-02 10:21] VITALS: BP 155/63; PULSE 62; RESP 20; TEMP 36.4; O2SAT 98
--- NOTE | 2024-01-02 13:04 | PM.DS ---
DS: Summary Time Spent with Patient Time attestation: Total time spent providing and/or coordinating discharge services: Discharge Plan Departure Attending Physician: Arnaldo Lucas Primary Care Provider: Marion Spicer Prescriptions: No Action spironolactone 25 mg tablet 25 mg PO DAILY meclizine 25 mg tablet 25 mg PO Q8H PRN (Reason: dizziness) Qty: 20 0RF ondansetron 4 mg tablet,disintegrating 4 mg PO Q6H PRN (Reason: nausea and vomiting) Qty: 20 0RF aspirin 81 mg capsule 81 mg PO DAILY Hold Instructions: Resume on 05/16/22. Patient Comments: on provided med list multivitamin Tablet 1 tablet PO DAILY brimonidine [Alphagan P] 0.1 % drops 0.1 drp RIGHT EYE BID pravastatin 40 mg tablet 40 mg PO DAILY metoprolol tartrate 100 mg tablet 100 mg PO BID losartan 100 mg tablet 100 mg PO DAILY
--- NOTE | 2024-01-02 13:10 | P.DS_ITS ---
Discharge Summary Mental Status See response to treatment Reason for Admission the patient is an 88-year-old white female with no previous psychiatric history prior to about 6 months before admission on 09/26/2023 when she had to have her dog use denies. At the time admission she been grieving the loss terribly, and since then she been experiencing auditory, tactile, and visual hallucinations when attempting to go to sleep at night. She describes seeing, hearing, feeling both a good and a bad spirit that would crawl up and down her legs. She described it as feeling hot and biting at her skin. Her PCP has put her on gabapentin which is help with neuropathy but other times she will kick the spirits off the bed or the end of the couch seeing them run and often disappear. At time she will hear them Victoria reports they have manifested themselves look like spiders. She also tends to trick Then by moving back and forth more bed to the couch when trying to sleep at night. Patient's PCP is Dr. Spicer, who had her on Xanax 0.25 mg q.h.s. and amitriptyline 10 mg q.h.s. the time admission. Treatment Plan Utilization/Treatment Supportive/cognitive therapy utilized. Current medications were continued. While in the program the patient was educated on safety, nutrition, sleep hygiene, hydration, wellness, coping skills, grief, behavioral activation, self- care, communication, boundaries, benefits of exercising, organization, exercise, etc.. Upon admission the patient's alprazolam and amitriptyline were discontinued. Seroquel 12.5 mg which was started on 09/30/2023, which initially helped, but this necessitated being increased to 25 mg q.h.s. on 12/05/2023. Today, she says that she decrease his Seroquel back to 12.5 mg q.h.s. on her own. Response to [place]/Treatment Course Summary Patient's symptoms improved with medication therapy. She reports sleeping 8 hours a night. Appetite is good. Her relationship her sister's improved also, and she spent time with friends on Saturday evenings. Mental status on discharge- appropriately dressed and groomed, pleasant cooperative. Normal motor activity. Speech with normal amount, rate, volume, variability of tone. Mood and affect remarkable for decreased anxiety. Thought content remarkable for decreased anxiety and psychotic symptoms. Denies suicidal homicidal ideations or huseyin. Thought process logical goal-directed. Insight judgment are fair. Estimated intellectual functioning average. immediate and recent memory grossly intact. Aftercare Plan Outpatient follow-up with PCP. Will also attend alumni program P.r.n.. Discharge Diagnosis F 29, F 41.9.
== END 2024-01-02 14:20 | disposition home or self-care (01) ==
LOC: CHSSENLIFE 10:00
PROVIDERS: PCP Internal Medicine; Visit Provider Psychiatry & Neurology Psychiatry
DX: F41.9 Anxiety disorder, unspecified (principal); F29 Unspecified psychosis not due to a substance or known physiological condition
CPT/HCPCS: 90853; 99214; G0463

== ENCOUNTER 2024-03-17 11:30 | Outpatient (CLI) | payer MEDICARE, BC, SELFPAY ==
--- NOTE | ~2024-03-17 | XR_ITS ---
Right Shoulder Technique: AP and scapular Y views were obtained. Clinical History: Pain Findings: No fracture or dislocation is seen. Osseous alignment is anatomic. The glenohumeral and acr omioclavicular joints demonstrate minimal degenerative change. Soft tissues are unremarkable. Impression: Minimal degenerative changes, as above. Reviewed, dictated and finalized at [facility]. PASSER Impression: Minimal degenerative changes, as above.
== END 2024-03-17 11:31 | disposition home or self-care (01) ==
PROVIDERS: PCP Internal Medicine; Visit Provider Internal Medicine
DX: M25.511 Pain in right shoulder (principal)
CPT/HCPCS: 73030

== ENCOUNTER 2024-03-31 09:52 | Outpatient (RCR) | payer MEDICARE, BC, SELFPAY ==
--- NOTE | 2024-03-31 15:25 | PTOPEVAL1 ---
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 She reports pain is at the front of the shoulder pain is present at all times. She reports pain is worse with reaching behind her and up at times. She reports she has difficulty sleeping, dressing and completing over head house hold tasks. She reports rest is the only thing that seems to help with pain. Reported Pain Level Pain Score 4: Self Report Assessment PT Clinical Summary Ms. Blunt is a 89 year old female who presents to PT with R shoulder pain. She demonstrates tenderness at the proximal bicep, decreased R shoulder ROM, and decreased R shoulder strength. She has difficulty dressing, sleeping and reaching over head to complete house hold tasks. She would benefit from skilled PT to address impairments and return to PLOF. Plan of Care Interventions Electrical Stimulation,Hot Pack/Cold Pack,Manual Therapy,Mechanical Traction,Neuro Re-education, Patient/Caregiver Education,Therapeutic Activities ,Therapeutic Exercise PT Services Indicated Yes Treatment Frequency and 2x weekly for 10 visits Duration These treatments will address the objective and functional deficits as defined above. The patient will be advanced safely and appropriately in order for the patient to progress towards his/her prior level of function. Additional exercises will be introduced and as well as a comprehensive home exercise program upon discharge, if needed, ?to ensure carryover of functional gains achieved in the clinic. This treatment plan has been reviewed and agreement upon by the patient.
--- NOTE | 2024-04-23 10:25 | OPREHPOC ---
Outpatient Therapy Plan of Care This is a Multidisciplinary Plan of Care that may contain components documented by all disciplines (PT, OT, and ST.) PT Problem 1 PT Problem #1 Knowledge Deficit PT Goal 1 Goal / Goal Update Patient to demonstrate independence with HEP Target Visit 5 Progress Met PT Problem 2 PT Problem #2 Pain PT Goal 1 Goal / Goal Update 1. patient to report highest pain at 3/10 Target Visit 10 Progress Not Met PT Problem 3 PT Problem #3 Impaired Strength PT Goal 1 Goal / Goal Update patient to demonstrate 4+/5 R shoulder strength to return to lifting for house hold tasks Target Visit 10 Progress Not Met PT Problem 4 PT Problem #4 Impaired Range of Motion PT Goal 1 Goal / Goal Update 1. Patient to demonstrate 150 deg of R shoulder flexion to reach into cabinets -not met 2. patient to demonstrate functional IR reach to lumbar spine to improve ability to dress -met Target Visit 10 Progress Partially Met PT Problem 5 PT Problem #5 Impaired Functional Mobility PT Goal 1 Goal / Goal Update 1. Patient to improve QuickDash by 20% -not met 2. Patient to report no pain when dressing -not met 3. Patient to report ability to reach into closet with no increase in R shoulder pain -not met Target Visit 10 Progress Not Met
--- NOTE | 2024-04-23 10:25 | PTOPDC ---
Assessment and note entered by Clarice Lawson, PT Evaluation Information Assessment Status Progress Diagnosis R shoulder pain ICD-10 Condition Codes (PT) Pain in right shoulder M25.511 Onset 03/24/24 Subjective Information Marisel Blunt reports her right shoulder is the same. She is still having constant pain in the right shoulder. She rates pain an 8/10 today. She has difficulty with reaching to the side and overhead which makes daily tasks hard to complete. Reported Pain Level Pain Score 8: Self Report Assessment PT Clinical Summary Marisel Blunt has completed 8 skilled PT visits for right shoulder pain. She is reporting no change in her symptoms and she continues to have constant right shoulder pain rated 8/10. She has difficulty reaching to the side and overhead which leads to deficits in her ability to perform daily tasks. She objectively demonstrates decreased and painful right shoulder AROM, decreased right shoulder strength, tenderness over the long head of the biceps tendon, and positive special tests consistent with bicep tendonitis and shoulder impingement. She was instructed to follow up with her referring physician due to lack of improvement. Plan of Care PT Services Indicated No
== END 2024-04-23 17:01 | disposition home or self-care (01) ==
LOC: CHSPT 09:52
PROVIDERS: Visit Provider Internal Medicine
DX: M25.511 Pain in right shoulder (principal)
CPT/HCPCS: 97014; 97110; 97140; 97150; 97161; G0283

== ENCOUNTER 2024-05-22 10:31 | Outpatient (CLI) | payer MEDICARE, BC, SELFPAY ==
--- NOTE | ~2024-05-22 | MR_ITS ---
EXAMINATION: MR shoulder RT wo con DATE: 05/22/2024 11:22 INDICATION: Right shoulder pain. TECHNIQUE: Magnetic resonance imaging (MRI) of the right shoulder was performed without intravenous c ontrast. Sequences included axial PD-weighted FS FSE, coronal oblique PD-weighted FS FSE and T2-weigh maegan FS FSE, and sagittal oblique T2-weighted FS FSE and T1-weighted FSE. COMPARISON: None. FINDINGS: Coracoacromial arch: The acromion undersurface is curved in morphology (type II). There is severe acromioclavicular joint osteoarthritis including inferiorly directed osteophytes. There is moderate subacromial/subdeltoid bu rsitis. Rotator cuff: There is a bursal sided tear of supraspinatus and infraspinatus tendons measuring 2.0 cm anterior to posterior by 3.7 cm proximal to distal by 60% tendon thickness. Teres minor tendon is normal. There i s severe subscapularis tendinopathy. There is mild fatty atrophy of the infraspinatus muscle belly. Biceps tendon and glenoid labrum: Biceps tendon is in bicipital groove. There is a partial tear of biceps tendon. There is degeneration of the glenoid labrum without well-defined tear. Fluid: There is a moderate-sized glenohumeral joint effusion. Bones/cartilage: There is partial-thickness cartilage loss of glenoid and humeral head. IMPRESSION: 1. Bursal-sided partial-thickness rotator cuff tear. 2. Mild glenohumeral joint chondrosis. 3. Severe acromioclavicular joint osteoarthritis. 4. Partial tear of biceps tendon. 5. Moderate-sized glenohumeral joint effusion. 6. Moderate subacromial/subdeltoid bursitis. 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
== END 2024-05-22 10:32 | disposition home or self-care (01) ==
LOC: MICIMG 10:32
PROVIDERS: PCP Internal Medicine; Visit Provider Internal Medicine
DX: M75.111 Incomplete rotator cuff tear or rupture of right shoulder, not specified as traumatic (principal); M19.011 Primary osteoarthritis, right shoulder; S46.211A Strain of muscle, fascia and tendon of other parts of biceps, right arm, initial encounter; M25.411 Effusion, right shoulder; M75.51 Bursitis of right shoulder
CPT/HCPCS: 73221

== ENCOUNTER 2024-09-08 07:17 | Outpatient (CLI) | payer MEDICARE, BC, SELFPAY ==
--- NOTE | 2024-09-08 | CONSULT_PTH ---
PATIENT: Marisel Blunt LOC: [facility]#:[id number] AGE/SX: 89/F ROOM: RE09/08/[address]: Marion Spicer MD : [id number] BED: DIS: 09/08/2024 SPEC #: [id number] RECD: 09/08/24 07:58 STATUS: BRIAN REQ #: [id number] KANU: 09/08/24 00:[address]: Marion Spicer DEPT: [facility] Consult RECD BY: Heather Vaz MLT, ([facility]) Tissues: A - Peripheral Smear Procedures: Hematology Consult
--- OUTSIDE RECORDS SUMMARY | 2024-09-08 07:21 | XMS_ITS | Referral Summary ---
Author Organization [facility] Address [address] [place] [address] Care Team Providers Care Certified Diabetes Educator Name Role Phone Marion Spicer MD Primary Care Provider [phone] Encounters Date Type Department Care Team Description 06/18/2024 Orders Only [facility] [address] [place] [address] [phone] Yohana Espinosa MD Primary open angle glaucoma (POAG) of both eyes, moderate stage (Primary Dx) 06/15/2024 9:45 AM CDT Office Visit [facility] [address] [place] [phone] Yohana Espinosa MD Primary open angle glaucoma (POAG) of both eyes, moderate stage (Primary Dx) 06/15/2024 9:20 AM CDT Imaging Exam [facility] [address] [place] [address] [phone] Primary open angle glaucoma (POAG) of both eyes, moderate stage 06/15/2024 9:00 AM CDT Imaging Exam [facility] [address] [place] [phone] Primary open angle glaucoma (POAG) of both eyes, moderate stage from Last 3 Months Allergies Active Allergy Reactions Criticality Noted Date Comments Dorzolamide Eye irritation,Other (See comments) Medium 09/11/2018 Medications amitriptyline (ELAVIL) 10 mg tablet Take 1 tablet (10 mg total) by mouth daily 3 8 Active aspirin 81 mg tablet Active losartan (COZAAR) 100 mg tablet 8 Active metoprolol (LOPRESSOR) 100 mg tablet Take 1 tablet (100 mg total) by mouth 2 (two) times a day 5 8 Active nitroglycerin (NITROSTAT) 0.[address] 1 TABLET UNDER TONGUE NEEDED FOR CHEST PAIN CAN REPEAT IN 5 MINUTES UP TO 3 DOSES 1 8 Active multivitamin tabletIndication s:Vitamin Deficiency Prevention Active artificial tears (SYSTANE) 0.3 % gel Apply to both eyes. Active propylene glycol 0.6 % dropsIndications :Dry Eye,Systane Administer 1 drop into affected eye(s) 2 (two) times a day. Active predniSONE (DELTASONE) 1 mg tablet TAKE 4 TABLETS BY MOUTH DAILY 2 8 Active alendronate (FOSAMAX) 70 mg tablet TAKE 1 TABLET BY MOUTH ONCE WEEKLY IN THE MORNING 30 MINUTES BEFORE 1ST FOOD,MARINA, OR MED 11 9 Active doxycycline monohydrate (MONODOX) 100 mg capsule Take 1 capsule (100 mg total) by mouth 2 (two) times a day 0 9 Active meclizine (ANTIVERT) 12.5 mg tablet TAKE 1 TABLET BY MOUTH EVERYDAY AT BEDTIME 0 9 Active qnkblcgx-tbm-dph serene fumarate 9 mg iron/15 mL liquid Take by mouth Active chlorthalidone 25 mg tablet Take 1 tablet (25 mg total) by mouth daily 0 Active magnesium oxide (MAG-OX) 400 mg (241.3 mg elemental magnesium) tablet Take 1 tablet (400 mg total) by mouth daily 0 Active Klor-Con M20 20 mEq CR tablet Take 1 tablet (20 mEq total) by mouth 2 (two) times a day 0 Active pravastatin (PRAVACHOL) 40 mg tablet Take 1 tablet (40 mg total) by mouth nightly at bedtime. 0 Active coenzyme Q10 100 mg capsule Take 1 capsule (100 mg total) by mouth daily 1 Active spironolactone (ALDACTONE) 25 mg tablet Take 1 tablet (25 mg total) by mouth every morning 2 Active metroNIDAZOLE (METROCREAM) 0.75 % cream APPLY TO FACE TWICE A DAY [address] (PROTONIX) 40 mg EC tablet Take 1 tablet (40 mg total) by mouth daily Active gabapentin (NEURONTIN) 100 mg capsule TAKE 1 CAPSULE BY MOUTH AT BEDTIME X 1 WEEK, THEN 2 CAPSULES AT BED X 1 WEEK, THEN 3 CAPSULES AT BED 2 Active QUEtiapine (SEROquel) 25 mg tablet TAKE 1/2 TABLET BY ORAL ROUTE ONCE DAILY AT BEDTIME 5 Active naproxen (ANAPROX DS) 550 mg tablet Take by mouth 2 (two) times a day as needed 5 Active Active Problems Problem Noted Date Diagnosed Date Osteoarthritis 08/10/2021 Spinal stenosis of lumbar re gion without neurogenic claudication 08/10/2021 Coronary artery disease 08/09/2021 Allergic contact blepharoconjunctivitis of right eye 07/24/2018 Assessment & Plan (07/24/2018 10:47 AM CDT): Patient notes some irritation of the right eyelids. Believe this may be allergic reaction to dorz/timolol. Advised patient to stop this drop for 1 week and report to our office. If no change, patient is to restart and stop travatan for one week. Report to our office. Ptosis of left eyelid 01/22/2018 Assessment & Plan (09/11/2018 11:45 AM CDT): I am scribing in the presence of Dr. Haley on 09/11/2018, SHALONDA Cool. Assessment & Plan (07/22/2018 11:07 AM CDT): Not visually significant. Continue to monitor. Rheumatoid arthritis 07/08/2017 Angina at rest 05/29/2017 CKD (chronic kidney disease), stage I 05/29/2017 HTN (hypertension) 05/29/2017 Hyperlipidemia 05/29/2017 Primary open angle glaucoma (POAG) of both eyes, moderate stage 01/27/2015 Assessment & Plan (07/16/2024 10:23 AM CDT): Trial off PGA No change in symptoms No indication for laser Follow 3 months, sooner for concerns Trial maxitrol for eyelid Assessment & Plan (06/15/2024 10:36 AM CDT): S/p SLT OD and trab OS Intolerance to brimonidine/cosopt OCT OU stable from 2 years ago HVF OU stable from 2 years ago IOP at goal on 1 class OD only Patient with continued irritation - plan to hold on latanoprost OD Check in 4-6 weeks, if IOP high OD repeat SLT OD If IOP less than 15 - observe Assessment & Plan (08/06/2022 1:58 PM CDT): POAG OU - doing well without concerns - HVF OU nonspecific - IOP at goal - continue 2 classes OU - follow 6 months with DFE Assessment & Plan (10/09/2021 1:17 PM CDT): POAG OU - doing well without concerns - changed Alphagan to brimonidine - IOP unchanged - continue brimonidine BID and latanoprost qHS OU - follow 6 months with HVF OU Assessment & Plan (07/07/2021 10:29 AM CDT): POAG OU - IOP remains controlled - Alphagan too expensive OU - change to brimonidine BID OU - continue latanoprost qHS OD - follow 3 months for IOP check with medication change Assessment & Plan (12/26/2020 10:51 AM CDT): POAG OU - doing well with no concerns - HVF remains stable both eyes - IOP OD on 2 classes at goal, IOP OS on no drops at goal - OCT OD stable, artifact OS - follow 6 months with DFE, sooner for concerns Assessment & Plan (07/11/2020 9:47 AM CDT): Former Dr. Haley patient H/o SLT OU in 2013, repeat SLT OD 03/2019 Avoid timolol IOP today at goal DFE today stable Follow 6 months with HVF/OCT Assessment & Plan (12/21/2019 10:14 AM CDT): Former Dr. Haley patient H/o SLT OU in 2013 IOP OD was uncontrolled on 2 classes - now s/p SLT OD 03/[address] Haley Lost to follow up since COVID Now s/p SLT IOP OD improved Wants to avoid timolol HVF stable OCT polar thinning stable Follow 6 months with DFE and IOP check, annually with testing Assessment & Plan (12/11/2018 10:03 AM CDT): IOP's slightly high on 2 classes. Patient states compliance with drop regimen. Eyes seem less red with new drop. Patient states h/o SLT both eyes. Most recent was in July of 2013. Suggest trying SLT OD, as patient would prefer not to add Timolol. R/B/A discussed. Return for next available SLT OD. She states her eyes still seem dry. Continue Systane. Drops: - Brimonidine BID OD - Travatan QHS OD Assessment & Plan (09/11/2018 11:48 AM CDT): intraocular pressure (IOP) 18/9 Stop timolol Begin using Brimonidine BID right eye (OD) .2% Drops Brimonidine BID OD Assessment & Plan (07/24/2018 10:47 AM CDT): Vision good. Borderline intraocular pressure right eye today on three classes. H/o SLT's within the last 2-3 years. Despite this Green visual field full right eye. OCT looks possibly thinner right eye compared to previous OCT in 2013. Intraocular pressure left eye good. Observe. Drops: - Dorz/Mikel BID right eye (OD) - Travatan QHS right eye (OD) - Systane PRN OU Macular degeneration 06/20/2010 Dermatochalasis of both upper eyelids OD>OS 11/26 Assessment & Plan (12/10/2018 2:14 PM CDT): SHALONDA Solares scribing for, and in the presence of, Tu Haley MD Assessment & Plan (07/24/2018 10:46 AM CDT): NVS at this time. Monitor. I am scribing in the presence of Dr. Haley on 07/24/2018, Cierra Montes, OSC. Pseudophakia of both eyes 12/20/2009 Assessment & Plan (12/26/2020 10:51 AM CDT): Stable both eyes Assessment & Plan (07/11/2020 9:47 AM CDT): Stable both eyes Assessment & Plan (04/09/2019 10:31 AM ENGINEER FIRST ASSISTANT): Continue to monitor I am scribing in the presence of Dr. Haley on 04/09/2019, Cierra Montes, SHALONDA. Assessment & Plan (07/22/2018 11:07 AM CDT): Lenses in place and clear. 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 Never 08/10/2021 Average Number of Drinks Not on file 022 Q3: How often do you have si x or more drinks on one occasion? Never 08/10/2021 Comments Unknown Sex and Gender Information Value Date Recorded Sex Assigned at Not on file Legal Sex Female 1:22 AM ENGINEER FIRST ASSISTANT Gender Identity Not on file Sexual Orientation Not on file Occupation Industry Job Start Date Job End Date Retired from [employer] Not on file Not on cristina e Not on file Last Filed Vital Signs Vital Sign Reading Time Taken Comments Blood Pressure 138/84 08/10/2021 9:19 AM CDT Pulse 69 08/10/2021 9:19 AM CDT Temperature - - Respiratory Rate - - Oxygen Saturation - - Inhaled Oxygen Concentration - - Weight 73.8 kg (162 lb 9.6 oz) 08/10/2021 9:19 A M CDT Height 162.6 cm (5' 4) 08/10/2021 9:19 AM CDT Body Mass Index 27.91 08/10/2021 9:19 AM CDT Plan of Treatment Not on file Procedures Procedure Name Priority Date/Time Associated Diagnosis Comments OCT, OPTIC NERVE - OU - BOTH EYES Routine 06/15/2024 9:38 AM CDT Primary open angle glaucoma (POAG) of both eyes, moderate stage GREEN VISUAL FIELD - OU - BOTH EYES Routine 06/15/2024 9:37 AM CDT Primary open angle glaucoma (POAG) of both eyes, moderate stage from Last 3 Months Results * OCT, Optic Nerve - OU - Both Eyes (06/15/2024 9:38 AM CDT) RNFL OS 61 micrometers CONTINUUM RNFL OD 62 micrometers CONTINUUM Anatomical Region Laterality Modality Head Other Narrative 06/15/2024 10:29 AM CDT Right Eye Reliability was borderline. Temporal thickness was normal. Superior thickness was showing abnormal thinning. Nasal thickness was normal. Inferior thickness was showing abnormal thinning. Average RNFL thickness 62 micrometers. Left Eye Reliability was borderline. Temporal thickness was normal. Superior thickness was showing abnormal thinning. Nasal thickness was normal. Inferior thickness was showing abnormal thinning. Average RNFL thickness 61 micrometers. Notes Difficult to achieve with frequent movements by pt. us Yohana Espinosa MD OPHTH TOMOGRAPHY Final Result * Green Visual Field - OU - Both Eyes (06/15/2024 9:37 AM CDT) Pattern Deviation OS 2.67 dB CONTINUUM Pattern Deviation OD 2.64 dB CONTINUUM Mean Deviation OS -4.11 dB CONTINUUM Mean Deviation OD -2.34 dB CONTINUUM Anatomical Region Laterality Modality Head Other Narrative 06/15/2024 10:29 AM CDT Right Eye Fixation was poor. Cooperation was poor. Reliability was poor. Progression has been stable. Foveal threshold was normal. Findings include non-specific defects. Mean Deviation was -2.34 dB. Pattern Deviation was 2.64 dB. Left Eye Fixation was poor. Cooperation was poor. Reliability was poor. Progression has been stable. Foveal threshold was normal. Findings include non-specific defects. Mean Deviation was -4.11 dB. Pattern Deviation was 2.67 dB. Notes Pt demonstrated poor fixation throughout duration of test, even with reminders. us Yohana Espinosa MD OPHTH VISUAL FIELD Final Resu lt from Last 3 Months Insurance MEDICARE [facility] MEDICARE MEDICARE Care Teams Certified Diabetes Educator Relationship Specialty Start Date End Date Marion Spicer MD [address], [place] [id number] PCP - General 08/09/16
--- OUTSIDE RECORDS SUMMARY | 2024-09-08 07:21 | XMS_ITS | Continuity of Care Document ---
Author Organization [facility] Address [address] [place] [address] utisarah Morales [address] [place] [address] Phone Care Team Providers Care Assembler Bicycle Name Role Phone Nikki Luna Unavailable Unavailable [...] Diagnoses Date Provider Providers Copied on Encounter [facility], [address] [place] [address] [address], [place], [place], [id number], tel:[phone] [facility] No Information 8-200 8 Cheryl Wong [address] , [address], [place], [place], [facility] [place], [place]. tel:[phone] [facility], [address] [place] [address] [address], [place], [place], [id number], [place] tel:[phone] [facility] No Information 1-200 8 Cheryl Wong [address] , [address], [place], [place], [facility], . tel:[phone] Office/outpat ient Visit, Est [facility], [address] [place] [address] [address], [place], [place], [id number], tel:[phone] [facility] No Information 0 8 Cheryl Jordan. [address] [facility] , [address], [place], [address], . tel:[phone] Referring Provider: Nikki Wolf, [address], [place], [place], [facility]. tel:[phone] [facility], [address], [place], [place], [id number], tel:[phone] [facility] No Information 8 Cheryl Jordan. [address] [facility] , [address], [place], [address], . tel:[phone] Family History Family Member Type Diagnosis Age At Onset No Information Payers Payer name Insurance type Covered republican ID Authoriza tion(s) Medicare [facility] [id number] BCBS [facility] [id number] Social History Type Description Quantity Date Captured [...]
--- OUTSIDE RECORDS SUMMARY | 2024-09-08 07:21 | XMS_ITS | Clinical Summary ---
Author Organization [facility] Address [address] [place] [address] Care Team Providers Care Security Guard Name Role Phone Marion Spicer MD Primary Care Provider [phone] Allergies Active Allergy Reactions Criticality Noted Date [...] MOUTH EVERYDAY AT BEDTIME 0 9 Active sjfjxhvq-cez-kvv serene fumarate 9 mg iron/15 mL liquid [...] the presence of Dr. Haley on 07/24/2018, SHALONDA Cool. Pseudophakia of both eyes 12/20/2009 Assessment & Plan (12/26/2020 10:51 AM CDT): Stable both eyes Assessment & Plan (07/11/2020 9:47 AM CDT): Stable both eyes Assessment & Plan (04/09/2019 10:31 AM ELECTRONICS SPECIALIST): Continue to monitor I am scribing in the presence of Dr. Haley on 04/09/2019, SHALONDA Cool. Assessment & Plan (07/22/2018 11:07 AM CDT): Lenses in place and clear. 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 Encounters Date Type Department Care Team Description 06/18/2024 Orders Only [facility] [place] [phone] Yohana Espinosa MD Primary open angle glaucoma (POAG) of both eyes, moderate stage (Primary Dx) 06/15/2024 9:45 AM CDT Office Visit [facility] [address] [facility] [place] [phone] Yohana Espinosa MD Primary open angle glaucoma (POAG) of both eyes, moderate stage (Primary Dx) 06/15/2024 9:20 AM CDT Imaging Exam [facility] [address] [phone] Primary open angle glaucoma (POAG) of both eyes, moderate stage 06/15/2024 9:00 AM CDT Imaging Exam [facility] [address] [phone] Primary open angle glaucoma (POAG) of both eyes, moderate stage from Last 3 Months Immunizations Immunization Administration Dates Next Due Influenza, Quadrivalent, Hig h Dose, Preservative Free, Intrr 10/29/2019 Pneumococcal Conjugate PCV 13 08/11/2014 ZOSTER Recombinant 02/20/2019,12/12/2018 Surgical History Surgery Date Site/Laterality Comments SC XCAPSL CTRC RMVL INSJ IO LENS PROSTH W/O ECP Extracaps Cataract Extract With Prosthesis Insert Left Eye - (Added by TW Conv) SC XCAPSL CTRC RMVL INSJ IO LENS PROSTH W/O ECP Extracaps Cataract Extract With Prosthesis Insert Right Eye - (Added by TW Conv) SC TRABECULOPLASTY BY LASER SURGERY Anterior Chamber Laser Trabeculoplasty - SLT (Added by TW Conv) CATARACT EXTRACTION GALLBLADDER SURGERY IRIDOTOMY / IRIDECTOMY CHOLECYSTECTOMY 02/26/1996 - 02/24/1997 Medical History Medical History Date Comments Hypertension Osteoarthritis Family History Medical History Relation Name Comments Alzheimer's disease Father Diabetes Maternal Grandmother Early Maternal Grandmother Cancer Mother Diabetes Mother Glaucoma Mother Heart disease Mother Hypertension Mother Diabetes Mother's Sister Diabetes Sister Heart disease Sister Relation Name Status Comments Father Maternal Grandmother Mother Mother's Sister Sister Social History Tobacco Use Types Packs/Day Years [...] on file Legal Sex Female 1:22 AM ELECTRONICS SPECIALIST Gender Identity Not on file Sexual Orientation Not on file Occupation Industry Job Start Date Job End Date Retired from [employer] Not on file Not on cristina e Not on file Obstetrics History Last Filed Vital Signs Vital Sign Reading [...] 08/10/2021 9:19 AM CDT Plan of Treatment Health Maintenance Due Date Last Done Comments Depression Screening 1935 Fall Risk Assessment 1935 Osteoporosis Screening-Bone Density Scan 1935 DTaP/Tdap/Td Vaccine (1 - Tdap) 1946 Hepatitis B Screening 1953 Well Visit 65+ 02/24/2000 Pneumococcal vaccine 65+ (2 of 2 - PPSV23) 08/12/2015 08/11/2014 Influenza Vaccine (Season Ended) 2024 10/29/19 20 Zoster Vaccine Completed 02/20/2019, 12/12/2018 Procedures Procedure Name Priority Date/Time Associated Diagnosis [...] to achieve with frequent movements by pt. Yohana Espinosa MD OPHTH TOMOGRAPHY Final Result [...] throughout duration of test, even with reminders. Yohana Espinosa MD OPH VISUAL FIELD Final Resu lt from Last 3 Months Insurance MEDICARE [facility] [employer] ACC[employer] DE BLUE [employer] MEDICARE MEDICARE Care Teams Security Guard Relationship Specialty Start Date End Date Marion Spicer MD [address] [place] [address] PCP - General 08/09/16
--- OUTSIDE RECORDS SUMMARY | 2024-09-08 07:21 | XMS_ITS | Clinical Summary ---
Author Organization [facility] Address [address] [place] [address] Care Team Providers Care Supervisor Publications Production Name Role Phone Marion Spicer MD Primary Care Provider [phone] Sam Cabrera MD Unavailable [phone] Danica Catalan [facility]- Unavailable + Allergies Active Allergy Reactions Criticality Noted Date Comments Dorzolamide Other (see comment) Medium 09/11/2018 Medications losartan 100 MG tablet Take 1 tablet (100 mg total) by mouth daily. Active aspirin EC 81 MG tablet Take 1 tablet (81 mg total) by mouth daily. Active metoprolol tartrate 100 MG tablet Take 1 tablet (100 mg total) by mouth 2 (two) times daily. 60 tablet 5 8 Active coenzyme Q-10 (COENZYME Q10) 100 MG capsule Take 1 capsule (100 mg total) by mouth daily. 30 capsule 1 Active metroNIDAZOLE 0.75 % cream APPLY TO FACE TWICE A DAY 2 Active Multiple Vitamin (MULTIVITAMIN ADULT OR) Take 1 tablet by mouth daily. Active magnesium oxide (MAG-OX) 400 MG tablet Take 1 tablet (400 mg total) by mouth daily. 30 tablet 6 3 Active dorzolamide-ti molol (COSOPT) 2-0.5 % Solution Place 1 drop into both eyes 2 (two) times daily. 4 Active pravastatin (PRAVACHOL) 40 MG tabletIndicati ons:Essential hypertension,M ixed hyperlipidemia ,Precordial pain,Shortness of breath TAKE 1 TABLET BY MOUTH NIGHTLY AT BEDTIME. 90 tablet 5 Active pravastatin (PRAVACHOL) 40 MG tabletIndicati ons:Essential hypertension,M ixed hyperlipidemia ,Precordial pain,Shortness of breath TAKE 1 TABLET BY MOUTH NIGHTLY AT BEDTIME. 90 tablet 5 09/01/19 25 Discontinued Active Problems Problem Noted Date Diagnosed Date Orthostatic hypotension 10/05/2021 Rheumatoid arthritis ([facility]) 8 Angina at rest 05/29/2017 CKD (chronic kidney disease), stage I 05/29/2017 HTN (hypertension) 05/29/2017 Hyperlipidemia 05/29/2017 Coronary artery disease Family History Medical History Relation Comments Diabetes Mother Hypertension Mother Diabetes Sister Hypertension Sister Relation Status Comments Father Mother Sister Social History Tobacco Use Types Packs/Day Years Used Date Smoking Tobacco: Never Smokeless Tobacco: Never Tobacco Cessation:Counseling Given: Not Answered Alcohol Use Standard Drinks/Week Comments No 0 (1 standard drink = 0.6 oz pur e alcohol) Comments Unknown Sex and Gender Information Value Date Recorded Sex Assigned at Not on file Legal Sex Female 1:26 AM CDT Gender Identity Not on file Sexual Orientation Not on file Last Filed Vital Signs Vital Sign Reading Time Taken Comments Blood Pressure 132/76 11/27/2023 2:01 PM CDT Pulse 69 11/27/2023 2:01 PM CDT Temperature 36.7 C (98 F) 06/25/2019 10:00 AM CDT Respiratory Rate 18 11/27/2023 2:01 PM CDT Oxygen Saturation 94% 11/27/2023 2:01 PM CDT Inhaled Oxygen Concentration - - Weight 75.3 kg (166 lb) 11/27/2023 2:01 PM CDT Height 162.6 cm (5' 4) 11/27/2023 2:01 PM CDT Body Mass Index 28.49 11/27/2023 2:01 PM CDT Plan of Treatment Health Maintenance Due Date Last Done Comments DTaP, Tdap and Td Vaccines ( 1 - Tdap) 1954 Annual Medicare Wellness Visit 02/24/2000 RSV Immunization or 60+ Years (1 - 1-dose 75+ series) 2010 Pneumococcal Vaccine: 50+ Years (2 of 2 - PPSV23) 10/06/2014 08/11/2014 ASCVD LDL 11/04/2021 11/04/2020, 08/04/2019, 04/11/2019 COVID-19 Vaccine (3 - 2023-2 5 season) 2023 04/22/2020, 03/25/2020 Zoster Vaccines Completed 02/20/2019, 12/12/2018 Meningococcal B Vaccine Aged Out No l onger eligible based on patient's age to complete this topic Meningococcal Vaccine Aged Out No jessica rasta eligible based on patient's age to complete this topic RSV Immunizations Under 20 Months Aged Out No longer eligible b ased on patient's age to complete this topic Procedures Procedure Name Priority Date/Time Associated Diagnosis Comments LIPID PANEL Routine 11/04/2020 Mixed hyperlipidemia Coronary artery disease involving chinik coronary artery of chinik heart without angina pectoris from Last 3 Months or Most Recently Relevant to Health Maintenance Results * LIPID PANEL (11/04/2020) CHOLESTEROL 145 HDL 69 TRIGLYCERIDES 96 LDL (CALCULATED) 57 11/04/2020 Clay Blackwood MD LABORATORY Final Resul t from Last 3 Months or Most Recently Relevant to Health Maintenance Insurance MEDICARE [facility] MEDICARE [facility] Care Teams Supervisor Publications Production Relationship Specialty Start Date End Date Marion Spicer MD [address] [place] [address] PCP - General INTERNAL MEDICINE 06/05/17 Sam Cabrera MD [address] [place] [address] INTERVENTIONAL CARDIOLOGY 06/21/23 Danica Catalan, [facility]- [address] [place] [id number] Nurse Practitioner NURSE PRACTITIONER ADULT HEALTH 06/21/23
--- OUTSIDE RECORDS SUMMARY | 2024-09-08 07:21 | XMS_ITS | Encounter Summary ---
Author Organization [facility] - [facility] Address [address] [place] [address] Care Team Providers Care Doggy Daycare Activities Director Name Role Phone Marion Spicer MD Primary Care Provider [phone] Clay Blackwood MD Unavailable [phone] Sam Cabrera MD Unavailable [phone] [facility] Unavailable + Encounter Details Date Type Department Care Team (Late st Contact Info) Description 05/29/2017 Abstract [facility] [address] [place] [phone] Clay Blackwood MD [address] [place] [address] Social History Tobacco Use Types Packs/Day Years Used Date Smoking Tobacco: Never Smokeless Tobacco: Never Comments Unknown Sex and Gender Information Value Date Recorded Sex Assigned at Not on file Legal Sex Female 1:26 AM CDT Gender Identity Not on file Sexual Orientation Not on file documented as of this encounter Plan of Treatment Not on file documented as of this encounter Visit Diagnoses Diagnosis Angina at rest- Primary Other and unspecified angina pectoris CKD (chronic kidney disease), stage I Chronic kidney disease, Stage I Essential hypertension Unspecified essential hypertension Mixed hyperlipidemia documented in this encounter Care Teams Doggy Daycare Activities Director Relationship Specialty Start Date End Date Marion Spicer MD [address] [place] [address] PCP - General INTERNAL MEDICINE 06/05/17 Clay Blackwood MD [address] [place] [address] [place] Heavy Equipment Operator Apprentice CARDIOVASCULAR DISEASE 06/05/17 06/20/23 Sam Cabrera MD [address] [place] [phone] INTERVENTIONAL CARDIOLOGY 06/21/23 Danica Catalan, [facility]- [address] [place] [address] Nurse Practitioner NURSE PRACTITIONER ADULT HEALTH 06/21/23 documented as of this encounter
--- OUTSIDE RECORDS SUMMARY | 2024-09-08 07:21 | XMS_ITS | Patient Health Record ---
Author Organization [facility] Address [address] [place], [place] [address] Care Team Providers Care Office System Analyst Name Role Phone Nayan Marion Unavailable Unavailable VICENTE JENNINGS Unavailable [phone] Allergies Allergen (clinical drug ingredient) Drug/Non Drug Allergy documented on EMR Reaction Allergy Type Onset Date Status Grass Mix Pollens Allergen Ext Unknown Drug Allergy Active Reason For Referral No Information Medications Medication SIG (Take, Route, Frequency, Duration) Notes Start Date End Date Status Losartan Potassium 100 MG 1 tablet Orall y Once a day Active Spironolactone 25 MG 1 tablet Orally Active Magnesium 400 MG as directed Orally Active Aspirin 81 81 MG 1 tablet Orally Once a day Active Pravastatin Sodium 40 MG 1 tablet Orally Once a day Active Metoprolol Succinate 100 MG 1 capsule Or ally Once a day Active Encounters Encounter Location Date Provider Diagnosis [address] [id number] 10/17/2023 VICENTE JENNINGS Other hammer toe(s) (acquired), right foot M20.41 ; Tinea unguium B35.1 ; Other hammer toe(s) (acquired), left foot M20.42 ; Pain in right toe(s) M79.674 ; Pain in left toe(s) M79.675 ; Unspecified atherosclerosis of [place] arteries of extremities, bilateral legs I70.203 and Acquired keratosis [keratoderma] palmaris et plantaris L85.1 Assessments Encounter Date Diagnosis (ICD Code) Assessment Notes Treatment Notes Treatment Clinical Notes Section Notes 10/17/2023 Other hammer toe(s) (acquired), right foot (ICD-10 - M20.41) The patient was educated regarding how to mechanically stabilize their deformity. The patient was given education about shoe recommendations specific for the condition. The patient was educated about custom orthotics and how appropriate shoes and orthotics can prevent further worsening of the deformity. The patient was educated about how bad shoe habits can worsen the condition. NSAIDS, P.T., injections and other conservative treatments were discussed. Both surgical and non surgical treatments were discussed, but conservative options were emphasized. 10/17/2023 Tinea unguium (ICD-10 - B35.1) Aseptic debridement of elongated thickened nails x 10 using sterile nippers, nails were debrided in length and thickness by 30% utilizing a nail nipper without incident. The patient was educated regarding all treatment options that include topical and oral antifungal treatments. I discussed the options of taking a sample of the nail to confirm diagnosis. Nail clippings were not sent for pathology analysis. The patient was educated why and how the fungal infection evolved in their feet and the patient was given information regarding how to prevent further infection. The patient was told to keep feet dry and change socks. The patient was told to be careful with old shoes and excessive sweating. The patient was educated regarding both OTC and prescription treatments. 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 After removal of overlying extensive hyperkeratosis, healthy tissue was noted and care was taken to assure that no undermining or probing was present. It should be noted that no probing was noted and no infection or drainage was noted. Plan Of Treatment No Information Insurance Providers Payer Name Payer Address Payer Phone Subscriber Number Group Number Insured Name Patient Relationship to Insured Coverage Start Date Coverage End Date Medicare Part B [place] [address] [place] [address] [id number] Marisel Blunt Self - patient is the insured [facility] [place] [place] ATTN CLAIMS [address] [place] [address] [id number] Marisel Blunt Self - patient is the insured Medical (General) History Medical History History ICD Code Leg/Feet cramps Arthritis Back Trouble hypertension Surgical History Surgery Date(Month/Year) Gall Bladder
[2024-09-08 07:37] LABS: Add Urine Microscopic? NO; Appearance Urine Clear (Clear); Glucose Urine UA Negative (Negative); Hematocrit 48.3 % (35.0-42.0); Hemoglobin 15.7 g/dL (11.7-13.8); Immature Platelet Fraction Pct 3.1 % (1.0-7.0); Leukocyte Esterase Ur Negative (Negative); Mean Corpuscular HGB Conc 32.5 g/dL (32-36); Mean Corpuscular Hemoglobin 29.7 pg (27.0-31.0); Mean Corpuscular Volume 91.5 fL (78.0-102.0); Nitrate Urine Negative (Negative); Platelet Count Result 95 K/mm3 (150-420); Red Blood Count 5.28 M/mm3 (4.20-5.40); Specific Grav Ur 1.020 (1.010-1.020); White Blood Count 3.2 K/mm3 (4.8-10.8)
[2024-09-08 07:45] LABS: Hemoglobin A1C 6.3 % (<5.7)
[2024-09-08 07:47] LABS: Band Neutrophils Percent 0 % (0-6); Eosinophils Absolute Manual 0.09 K/mm3 (0.02-0.50); Eosinophils Percent Manual 3 % (1-6); Lymphocytes Absolute Manual 1.56 K/mm3 (1.1-4.5); Lymphocytes Percent Manual 49 % (18-44); Monocytes Absolute Manual 0.38 K/mm3 (0.1-0.90); Monocytes Percent Manual 12 % (3-9); Neutrophils Absolute Manual 1.15 K/mm3 (1.3-6.7); Neutrophils Percent Manual 36 % (46-73); Total Cells Counted 100
[2024-09-08 08:03] LABS: Alanine Aminotransferase 55 U/L (6-35); Albumin Level 4.3 g/dL (3.5-5.1); Alkaline Phosphatase 91 U/L (38-126); Anion Gap 5 mmol/L (4-12); Aspartate Amino Transferase 49 U/L (14-36); Bilirubin,Total 1.2 mg/dL (0.2-1.3); Blood Urea Nitrogen 25 mg/dL (7-17); CRP < 0.5 mg/dL (<1.0); Calcium 10.2 mg/dL (8.4-10.2); Carbon Dioxide 28 mmol/L (22-30); Chloride 108 mmol/L (98-107); Cholesterol 166 mg/dL (0-200); Estimated Glomerular Filt Rate 60; Glucose 132 mg/dL (65-110); HDL Direct 60 mg/dL; Osmolality Calculated 298 mOsm/kg (285-295); Potassium 4.2 mmol/L (3.4-5.0); Sodium 141 mmol/L (137-145); Total Protein 6.5 g/dL (6.3-8.2); Triglycerides 151 mg/dL (<150)
[2024-09-08 08:17] LABS: Free T4 Free Thyroxine 1.29 ng/dL (0.78-2.19)
[2024-09-08 08:31] LABS: Thyroid Stimulating Hormone 1.050 uIU/mL (0.465-4.680)
[2024-09-08 08:50] LABS: Vitamin B12 827.0 pg/mL (239-931)
[2024-09-08 15:04] LABS: Creatine Kinase 208 U/L (30-135)
== END 2024-09-08 07:18 | disposition home or self-care (01) ==
LOC: CHSLAB 07:20
PROVIDERS: PCP Internal Medicine; Visit Provider Internal Medicine
DX: N18.1 Chronic kidney disease, stage 1 (principal); R73.01 Impaired fasting glucose; K21.9 Gastro-esophageal reflux disease without esophagitis; K76.0 Fatty (change of) liver, not elsewhere classified; M35.3 Polymyalgia rheumatica; G62.9 Polyneuropathy, unspecified; I12.9 Hypertensive chronic kidney disease with stage 1 through stage 4 chronic kidney disease, or unspecified chronic kidney disease
CPT/HCPCS: 36415; 80053; 80061; 81003; 82550; 82607; 83036; 84439; 84443; 85025; 85055; 85652; 86140

== ENCOUNTER 2024-09-24 08:16 | Outpatient (CLI) | payer MEDICARE, BC, SELFPAY ==
--- NOTE | ~2024-09-24 | US_ITS ---
Limited Abdominal Sonogram: Real-time sonographic imaging of the right upper quadrant was performed. Clinical History: Abnormal liver enzymes Findings: The liver appears echogenic, with no evidence of mass lesion or bile duct dilatation. Main portal vein demonstrates normal direction of flow. The gallbladder is absent, compatible with prior cholecystectomy. The common bile duct measures 8 mm. The visualized pancreas, aorta, and IVC are unr emarkable. Right renal cyst noted. Impression: Diffuse fatty infiltration of liver. Reviewed, dictated and finalized at location M. Impression: Diffuse fatty infiltration of liver.
--- OUTSIDE RECORDS SUMMARY | 2024-09-24 08:20 | XMS_ITS | Clinical Summary ---
Author Organization [facility] Address [address] [place] [address] Care Team Providers Care Drilling Superintendent Name Role Phone Marion Spicer MD Primary Care Provider [phone] Allergies Active Allergy Reactions Criticality Noted Date [...] MOUTH EVERYDAY AT BEDTIME 0 9 Active vrgvkrgm-zzf-srp serene fumarate 9 mg iron/15 mL liquid [...] eyes Assessment & Plan (04/09/2019 10:31 AM AERIAL CROP DUSTER): Continue to monitor I am scribing in the presence of Dr. Haley on 04/09/2019, SHALONDA Cool. Assessment & Plan (07/22/2018 11:07 AM CDT): Lenses in place and clear. 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 Immunizations Immunization Administration Dates Next Due Influenza, Quadrivalent, Hig h Dose, Preservative Free, Intrr 10/29/2019 Pneumococcal Conjugate PCV 13 08/11/2014 ZOSTER Recombinant 02/20/2019,12/12/2018 Surgical History Surgery Date Site/Laterality Comments [place] XCAPSL CTRC RMVL INSJ IO LENS PROSTH W/O ECP Extracaps Cataract Extract With Prosthesis Insert Left Eye - (Added by TW Conv) [place] XCAPSL CTRC RMVL INSJ IO LENS PROSTH W/O ECP Extracaps Cataract Extract With Prosthesis Insert Right Eye - (Added by TW Conv) [place] TRABECULOPLASTY BY LASER SURGERY Anterior Chamber Laser [...] on file Legal Sex Female 1:22 AM AERIAL CROP DUSTER Gender Identity Not on file Sexual Orientation Not on file Occupation Industry Job Start Date Job End Date Retired from [employer] Not on file Not on cristina [...] 2 - PPSV23) 08/12/2015 08/11/2014 Influenza Vaccine (#1) 2024 10/29/2019 Zoster Vaccine Completed 02/20/2019, 12/12/2018 Insurance MEDICARE [facility] MEDIC[facility] MEDICARE Care Teams Drilling Superintendent Relationship Specialty Start Date End Date Marion Spicer MD [address] [place] [address] PCP - General 08/09/16
--- OUTSIDE RECORDS SUMMARY | 2024-09-24 08:20 | XMS_ITS | Referral Summary ---
Author Organization [facility] Address [address] [place] [address] Care Team Providers Care Director Distribution Name Role Phone Marion Spicer MD Primary Care Provider [phone] Allergies Active Allergy Reactions Criticality Noted Date [...] MOUTH EVERYDAY AT BEDTIME 0 9 Active dgtfewyl-jeu-hva serene fumarate 9 mg iron/15 mL liquid [...] eyes Assessment & Plan (04/09/2019 10:31 AM RESORT MANAGER): Continue to monitor I am scribing in [...] on file Legal Sex Female 1:22 AM RESORT MANAGER Gender Identity Not on file Sexual Orientation Not on file Occupation Industry Job Start Date Job End Date Retired from [employer] Not on file Not on cristina e [...] CDT Plan of Treatment Not on file Insurance MEDICARE [facility] [employer] [place] [employer] [place] Member Subscriber Plan / Payer ( fective 1982-) Name:Leonie Blunt Relation to Subscriber:Self Name:Leonie Blunt Payer ID:[id number] (NAIC) Group ID:[id number] Type: OTHER Address: [address] [place] [phone] MEDICARE MEDICARE Care Teams Director Distribution Relationship Specialty Start Date End Date aMrion Spicer MD [address] [place], [place] [id number] PCP - General 08/09/16
--- OUTSIDE RECORDS SUMMARY | 2024-09-24 08:20 | XMS_ITS | Continuity of Care Document ---
Author Organization [facility] Address [address] [place] [address] [address] [place] [address] Phone Care Team Providers Care Hearing Therapist Name Role Phone Nikki Luna Unavailable Unavailable [...] Diagnoses Date Provider Providers Copied on Encounter [facility], [address] [place] [address] [address], [place], [place], [id number], tel:[phone] [facility] No Information 8-200 8 Cheryl Wong [address], [place], [place], [facility] [place], [place]. tel:[phone] [facility], [address] [place] [address] [address], [place], [place], [id number], [place] tel:[phone] [facility] No Information 1-200 8 Cheryl Wong [address] [facility] , [address], [place], [place], [facility] [place], . tel:[phone] Office/outpat ient Visit, Est [facility], [address] [place] [address] [address], [place], [place], [id number], tel:[phone] [facility] No Information 0 8 Cheryl Jordan. [address] , [address], [place], [address], . tel:[phone] Referring Provider: Nikki Wolf, [address], [place], [place], [facility] [place]. tel:[phone] [facility], [address], [place], [place], [id number], tel:[phone] [facility] No Information 8 Cheryl Jordan. [address] [facility] , [address], [place], [address], . tel:[phone] Family History Family Member Type Diagnosis Age At Onset No Information Payers Payer name Insurance type Covered alliance party ID Authoriza tion(s) Medicare [facility] [id number] BCBS [facility] BL [id number] Social History Type Description Quantity Date Captured [...]
--- OUTSIDE RECORDS SUMMARY | 2024-09-24 08:20 | XMS_ITS | Patient Health Record ---
Author Organization [facility] Address [address] [place], [place] [address] Care Team Providers Care Communications Maintainer Name Role Phone Nayan Marion Unavailable Unavailable VICENTE JENNINGS Unavailable [phone] Allergies Allergen (clinical drug ingredient) Drug/Non Drug [...] Active Encounters Encounter Location Date Provider Diagnosis [address] [id number] 10/17/2023 VICENTE JENNINGS Other hammer toe(s) (acquired), right foot M20.41 ; Tinea unguium B35.1 ; Other hammer toe(s) (acquired), left foot M20.42 ; Pain in right toe(s) M79.674 ; Pain in left toe(s) M79.675 ; Unspecified atherosclerosis of [place] arteries of extremities, bilateral legs I70.203 and [...] (ICD-10 - M79.675) 10/17/2023 Unspecified atherosclerosis of [place] arteries of extremities, bilateral legs (ICD-10 - [...] Date Coverage End Date Medicare Part B [place] [address] [place] [address] [id number] Marisel Blunt Self - patient is the insured [facility] [place]) ATTN CLAIMS [address] [place] [address] [id number] Marisel Blunt Self - patient is the insured Medical (General) History Medical History History ICD Code Leg/Feet cramps Arthritis Back Trouble hypertension Surgical History Surgery Date(Month/Year) Gall Bladder
--- OUTSIDE RECORDS SUMMARY | 2024-09-24 08:20 | XMS_ITS | Clinical Summary ---
Author Organization [facility] Address [address] [place] [address] Care Team Providers Care Planogrammer Name Role Phone Marion Spicer MD Primary Care Provider [phone] Sam Cabrera MD Unavailable [phone] Danica Catalan [facility]- Unavailable + Allergies Active Allergy Reactions Criticality [...] Diagnosed Date Orthostatic hypotension 10/05/2021 Rheumatoid arthritis (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 from Last 3 Months or Most Recently Relevant to Health Maintenance Results * LIPID PANEL (11/04/2020) CHOLESTEROL 145 HDL 69 TRIGLYCERIDES 96 LDL (CALCULATED) 57 11/04/2020 Clay Blackwood MD LABORATORY Final Resul t from Last 3 Months or Most Recently Relevant to Health Maintenance Insurance MEDICARE [place] MEDICARE [facility] Care Teams Planogrammer Relationship Specialty Start Date End Date Marino Spicer MD [address] [place] [address] PCP - General INTERNAL MEDICINE 06/05/17 Sam Cabrera MD [address] [place] [address] INTERVENTIONAL CARDIOLOGY 06/21/23 Danica Catalan, [facility]- [address] [place] [address] Nurse Practitioner NURSE PRACTITIONER ADULT HEALTH 06/21/23
--- OUTSIDE RECORDS SUMMARY | 2024-09-24 08:20 | XMS_ITS | Encounter Summary ---
Author Organization [facility] - [facility] Address [address] [place] [address] Care Team Providers Care Right Of Way Man Name Role Phone Marion Spicer MD Primary Care Provider [phone] Clay Blackwood MD Unavailable [phone] Sam Cabrera MD Unavailable [phone] Danica Catalan [facility] Unavailable + Encounter Details Date Type Department Care Team (Late st Contact Info) Description 05/29/2017 Abstract [facility] [address] [place] [address] Clay Blackwood MD [address] [place] [address] Social History Tobacco Use Types [...] hyperlipidemia documented in this encounter Care Teams Right Of Way Man Relationship Specialty Start Date End Date Marion Spicer MD [address] [place] [address] PCP - General INTERNAL MEDICINE 06/05/17 Clay Blackwood MD [address] [place] [address] [place] Master Tax Advisor CARDIOVASCULAR DISEASE 06/05/17 06/20/23 Sam Cabrera MD [address] [place] [address] INTERVENTIONAL CARDIOLOGY 06/21/23 Danica Catalan, [facility]- [address] [place] [address] Nurse Practitioner NURSE PRACTITIONER ADULT HEALTH 06/21/23 documented as of this encounter
== END 2024-09-24 08:17 | disposition home or self-care (01) ==
LOC: CHSIMG 08:18
PROVIDERS: PCP Internal Medicine; Visit Provider Internal Medicine
DX: R74.8 Abnormal levels of other serum enzymes (principal); K76.0 Fatty (change of) liver, not elsewhere classified
CPT/HCPCS: 76705

== ENCOUNTER 2024-10-01 15:19 | Outpatient (CLI) | payer MEDICARE, BC, SELFPAY ==
--- OUTSIDE RECORDS SUMMARY | 2024-10-01 15:23 | XMS_ITS | Continuity of Care Document ---
Author Organization [facility] Address [address] [place] [address] [address] [place] [address] Phone Care Team Providers Care Cherry Dipper Name Role Phone Nikki Luna Unavailable Unavailable [...] Diagnoses Date Provider Providers Copied on Encounter [facility], [address] [place] [address] [address], [place], [place], [id number], tel:[phone] [facility] No Information 8-200 8 Cheryl Wong [address], [place], [place], [facility], [place]. tel:[phone] [facility], [address] [place] [address] [address], [place], [place], [address], [place] tel:[phone] [facility] No Information 1-200 8 Cheryl Wong [address] [facility] , [address], [place], [place], [facility], . tel:[phone] Office/outpat ient Visit, Est [facility], [address] [place] [address] [address], [place], [place], [id number], tel:[phone] [facility] No Information 0 8 Cheryl Jordan. [address] [facility] , [address], [place], [address], . tel:[phone] Referring Provider: Nikki Wolf, [address], [place], [place], [facility]. tel:[phone] [facility], [address], [place], [place], [address], tel:[phone] [facility] No Information 8 Cheryl Jordan. [address] [facility] , [address], [place], [address], . tel:[phone] Family History Family Member Type Diagnosis Age At Onset No Information Payers Payer name Insurance type Covered democrat ID Authoriza tion(s) Medicare [facility] [id number] BCBS [facility] BL [id number] Social History Type Description Quantity Date Captured [...]
--- OUTSIDE RECORDS SUMMARY | 2024-10-01 15:23 | XMS_ITS | Clinical Summary ---
Author Organization [facility] Address [address] [place] [address] Care Team Providers Care Insurance Adjuster Name Role Phone Marion Spicer MD Primary Care Provider [phone] Allergies Active Allergy Reactions Criticality Noted Date [...] MOUTH EVERYDAY AT BEDTIME 0 9 Active rtbkfeqi-owz-uqq serene fumarate 9 mg iron/15 mL liquid [...] eyes Assessment & Plan (04/09/2019 10:31 AM PORTUGUESE TUTOR): Continue to monitor I am scribing in the presence of Dr. Haley on 04/09/2019, SHALONDA Cool. Assessment & Plan (07/22/2018 11:07 AM CDT): Lenses in place and clear. 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 Immunizations Immunization Administration Dates Next Due Influenza, Quadrivalent, Hig h Dose, Preservative Free, Intrr 10/29/2019 Pneumococcal Conjugate PCV 13 08/11/2014 ZOSTER Recombinant 02/20/2019,12/12/2018 Surgical History Surgery Date Site/Laterality Comments [place] XCAPSL CTRC RMVL INSJ IO LENS PROSTH W/O ECP Extracaps Cataract Extract With Prosthesis Insert Left Eye - (Added by TW Conv) [place] XCAPSL CTRC RMVL INSJ IO LENS PROSTH W/O ECP Extracaps Cataract Extract With Prosthesis Insert Right Eye - (Added by TW Conv) [place] TRABECULOPLASTY BY LASER SURGERY Anterior Chamber Laser [...] on file Legal Sex Female 1:22 AM PORTUGUESE TUTOR Gender Identity Not on file Sexual Orientation Not on file Occupation Industry Job Start Date Job End Date Retired from [employer] Not on file Not on [...] Zoster Vaccine Completed 02/20/2019, 12/12/2018 Insurance MEDICARE [facility] MEDICARE MEDICARE Care Teams Insurance Adjuster Relationship Specialty Start Date End Date Marion Spicer MD [address] [place] [address] PCP - General 08/09/16
--- OUTSIDE RECORDS SUMMARY | 2024-10-01 15:23 | XMS_ITS | Patient Health Record ---
Author Organization [facility] Address [address] [place], [place] [address] Care Team Providers Care Automatic Toe Laster Name Role Phone Nayan Marion Unavailable Unavailable VICENTE JENNINGS Unavailable [phone] Allergies Allergen (clinical drug ingredient) Drug/Non Drug [...] Active Encounters Encounter Location Date Provider Diagnosis [address] [id number] 10/17/2023 VICENTE JENNINGS Other hammer toe(s) (acquired), right foot M20.41 ; Tinea unguium B35.1 ; Other hammer toe(s) (acquired), left foot M20.42 ; Pain in right toe(s) M79.674 ; Pain in left toe(s) M79.675 ; Unspecified atherosclerosis of [place] arteries of extremities, bilateral legs I70.203 and [...] (ICD-10 - M79.675) 10/17/2023 Unspecified atherosclerosis of [place] arteries of extremities, bilateral legs (ICD-10 - [...] Date Coverage End Date Medicare Part B [place] [address] [place] [address] [id number] Marisel Blunt Self - patient is the insured [facility] ([facility]) ATTN CLAIMS [address] [place] [address] [id number] Marisel Blunt Self - patient is the insured Medical (General) History Medical History History ICD Code Leg/Feet cramps Arthritis Back Trouble hypertension Surgical History Surgery Date(Month/Year) Gall Bladder
--- OUTSIDE RECORDS SUMMARY | 2024-10-01 15:23 | XMS_ITS | Clinical Summary ---
Author Organization [facility] Address [address] [place] [address] Care Team Providers Care Lead Burner Helper Name Role Phone Marion Spicer MD Primary Care Provider [phone] Sam Cabrera MD Unavailable [phone] Danica Catalan [facility]- Unavailable + Allergies Active Allergy [...] 2 (two) times daily. 60 tablet 5 06/27/2017 Active coenzyme Q-10 (COENZYME Q10) 100 MG capsule Take 1 capsule (100 mg total) by mouth daily. 30 capsule 09/12/2020 Active metroNIDAZOLE 0.75 % cream APPLY TO FACE TWICE A DAY 06/08/2021 Active Multiple Vitamin (MULTIVITAMIN ADULT OR) Take 1 tablet by mouth daily. Active magnesium oxide (MAG-OX) 400 MG tablet Take 1 tablet (400 mg total) by mouth daily. 30 tablet 6 12/06/2022 Active dorzolamide-pantera olol (COSOPT) 2-0.5 % Solution Place 1 drop into both eyes 2 (two) times daily. 11/13/2023 Active pravastatin (PRAVACHOL) 40 MG tabletIndicatio ns:Essential hypertension,Mi xed hyperlipidemia, Precordial pain,Shortness of breath TAKE 1 TABLET BY MOUTH NIGHTLY AT BEDTIME. 90 tablet 08/31/2024 Active Active Problems Problem Noted Date Diagnosed Date Orthostatic hypotension 10/05/2021 Rheumatoid arthritis ([facility]) 8 Angina at rest 05/29/2017 [...] 11/04/2020 Mixed hyperlipidemia Coronary artery disease involving [place] coronary artery of [place] heart without angina pectoris from Last 3 Months or Most Recently Relevant to Health Maintenance Results * LIPID PANEL (11/04/2020) CHOLESTEROL 145 HDL 69 TRIGLYCERIDES 96 LDL (CALCULATED) 57 11/04/2020 us Clay Blackwood MD LABORATORY Final Resul t from Last 3 Months or Most Recently Relevant to Health Maintenance Insurance MEDICARE [facility] MEDICARE [facility] Care Teams Lead Burner Helper Relationship Specialty Start Date End Date Marion Spicer MD [address] [place] [phone] PCP - General INTERNAL MEDICINE 06/05/17 Sam Cabrera MD [address] [place] [phone] INTERVENTIONAL CARDIOLOGY 06/21/23 Danica Catalan ANP- [address] [place] [address] Nurse Practitioner NURSE PRACTITIONER ADULT HEALTH 06/21/23
--- OUTSIDE RECORDS SUMMARY | 2024-10-01 15:23 | XMS_ITS | Encounter Summary ---
Author Organization [facility] Address [address] [place] [address] Care Team Providers Care Night Assistant Name Role Phone Marion Spicer MD Primary Care Provider [phone] Clay Blackwood MD Unavailable [phone] Sam Cabrera MD Unavailable [phone] Danica Catalan [facility] Unavailable + Encounter Details Date Type Department Care Team (Late st Contact Info) Description 05/29/2017 Abstract [facility] [address] [place] [phone] Clay Blackwood MD [address] [place] [address] Social History Tobacco Use Types [...] hyperlipidemia documented in this encounter Care Teams Night Assistant Relationship Specialty Start Date End Date Marion Spicer MD [address] [place] [address] PCP - General INTERNAL MEDICINE 06/05/17 Clay Blackwood MD [address] [place] [phone] [place] Mutuel Teller CARDIOVASCULAR DISEASE 06/05/17 06/20/23 Sam Cabrera MD [address] [place] [phone] INTERVENTIONAL CARDIOLOGY 06/21/23 Danica Catalan, [facility]- [address] [place] [address] Nurse Practitioner NURSE PRACTITIONER ADULT HEALTH 06/21/23 documented as of this encounter
[2024-10-01 15:33] LABS: Hematocrit 47.5 % (35.0-42.0); Hemoglobin 15.2 g/dL (11.7-13.8); Immature Platelet Fraction Pct 4.1 % (1.0-7.0); Mean Corpuscular HGB Conc 32.0 g/dL (32-36); Mean Corpuscular Hemoglobin 29.4 pg (27.0-31.0); Mean Corpuscular Volume 91.9 fL (78.0-102.0); Platelet Count Result 97 K/mm3 (150-420); Red Blood Count 5.17 M/mm3 (4.20-5.40); White Blood Count 3.8 K/mm3 (4.8-10.8)
[2024-10-01 16:43] LABS: Alanine Aminotransferase 58 U/L (6-35); Albumin Level 4.7 g/dL (3.5-5.1); Alkaline Phosphatase 91 U/L (38-126); Anion Gap 8 mmol/L (4-12); Aspartate Amino Transferase 56 U/L (14-36); Bilirubin,Total 1.1 mg/dL (0.2-1.3); Blood Urea Nitrogen 22 mg/dL (7-17); Calcium 11.0 mg/dL (8.4-10.2); Carbon Dioxide 29 mmol/L (22-30); Chloride 105 mmol/L (98-107); Estimated Glomerular Filt Rate 54; Glucose 168 mg/dL (65-110); Osmolality Calculated 301 mOsm/kg (285-295); Potassium 4.5 mmol/L (3.4-5.0); Sodium 142 mmol/L (137-145); Total Protein 6.9 g/dL (6.3-8.2)
== END 2024-10-01 15:20 | disposition home or self-care (01) ==
PROVIDERS: PCP Internal Medicine; Visit Provider Internal Medicine
DX: R20.2 Paresthesia of skin (principal); M35.3 Polymyalgia rheumatica
CPT/HCPCS: 36415; 80053; 85027; 85055

== ENCOUNTER 2024-10-02 13:24 | Outpatient (CLI) | payer MEDICARE, BC, SELFPAY ==
--- OUTSIDE RECORDS SUMMARY | 2024-10-02 13:29 | XMS_ITS | Clinical Summary ---
Author Organization [facility] Address [address] [place] [address] Care Team Providers Care Answering Service Agent Name Role Phone Marion Spicer MD Primary Care Provider [phone] Allergies Active Allergy Reactions Criticality Noted Date [...] MOUTH EVERYDAY AT BEDTIME 0 9 Active weqxfsto-tkm-ebw serene fumarate 9 mg iron/15 mL liquid [...] eyes Assessment & Plan (04/09/2019 10:31 AM TALENT ENGINEER): Continue to monitor I am scribing in the presence of Dr. Haley on 04/09/2019, SHALONDA Cool. Assessment & Plan (07/22/2018 11:07 AM CDT): Lenses in place and clear. 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 Immunizations Immunization Administration Dates Next Due Influenza, Quadrivalent, Hig h Dose, Preservative Free, Intrr 10/29/2019 Pneumococcal Conjugate PCV 13 08/11/2014 ZOSTER Recombinant 02/20/2019,12/12/2018 Surgical History Surgery Date Site/Laterality Comments [place] XCAPSL CTRC RMVL INSJ IO LENS PROSTH W/O ECP Extracaps Cataract Extract With Prosthesis Insert Left Eye - (Added by TW Conv) [place] XCAPSL CTRC RMVL INSJ IO LENS PROSTH W/O ECP Extracaps Cataract Extract With Prosthesis Insert Right Eye - (Added by TW Conv) [place] TRABECULOPLASTY BY LASER SURGERY Anterior Chamber Laser [...] on file Legal Sex Female 1:22 AM TALENT ENGINEER Gender Identity Not on file Sexual Orientation Not on file Occupation Industry Job Start Date Job End Date Retired from [employer] Not on file Not on [...] Zoster Vaccine Completed 02/20/2019, 12/12/2018 Insurance MEDICARE [facility] MEDIC[facility] MEDICARE Care Teams Answering Service Agent Relationship Specialty Start Date End Date Marion Spicer MD [address] [place] [address] PCP - General 08/09/16
--- OUTSIDE RECORDS SUMMARY | 2024-10-02 13:29 | XMS_ITS | Patient Health Record ---
Author Organization [facility] Address [address] [place], [place] [address] Care Team Providers Care Guest Specialist Name Role Phone Nayan Marion Unavailable Unavailable VICENET JENNINGS Unavailable [phone] Allergies Allergen (clinical drug ingredient) Drug/Non Drug [...] Active Encounters Encounter Location Date Provider Diagnosis [address] [id number] 10/17/2023 VICENTE JENNINGS Other hammer toe(s) (acquired), right foot M20.41 ; Tinea unguium B35.1 ; Other hammer toe(s) (acquired), left foot M20.42 ; Pain in right toe(s) M79.674 ; Pain in left toe(s) M79.675 ; 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, bilateral legs I70.203 and [...] (ICD-10 - M79.675) 10/17/2023 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
--- OUTSIDE RECORDS SUMMARY | 2024-10-02 13:29 | XMS_ITS | Encounter Summary ---
Author Organization [facility] - [facility] Address [address] [place] [address] Care Team Providers Care Fingerprinter Name Role Phone Marion Spicer MD Primary Care Provider [phone] Clay Blackwood MD Unavailable [phone] Sam Cabrera MD Unavailable [phone] Danica Catalan [facility] Unavailable + Encounter Details Date Type Department Care Team (Late st Contact Info) Description 05/29/2017 Abstract [facility] [address] [place] [phone] Clay Blackwood MD [address] [place] [address] Social History Tobacco Use Types [...] hyperlipidemia documented in this encounter Care Teams Fingerprinter Relationship Specialty Start Date End Date Marion Spicer MD [address] [place] [address] PCP - General INTERNAL MEDICINE 06/05/17 Clay Blackwood MD [address] [place] [phone] [place] Vocational Examiner CARDIOVASCULAR DISEASE 06/05/17 06/20/23 Sam Cabrera MD [address] [place] [phone] INTERVENTIONAL CARDIOLOGY 06/21/23 Danica Catalan, [facility]- [address] [place] [address] Nurse Practitioner NURSE PRACTITIONER ADULT HEALTH 06/21/23 documented as of this encounter
--- OUTSIDE RECORDS SUMMARY | 2024-10-02 13:29 | XMS_ITS | Continuity of Care Document ---
Author Organization [facility] Address [address] [place] [address] utisarah Morales [address] [place] [address] Phone Care Team Providers Care Soot Blower Name Role Phone Nikki Luna Unavailable Unavailable [...] Diagnoses Date Provider Providers Copied on Encounter [facility], [address] [place] [address] [address], [place], [place], [id number], tel:[phone] [facility] No Information 8200 8 Cheryl Wong [address] , [address], [place], [place], [facility], [place]. tel:[phone] [facility], [address] [place] [address] [address], [place], [place], [id number], [place] tel:[phone] [facility] No Information 1200 8 Cheryl Wong [address] [facility] , [address], [place], [place], [facility], . tel:[phone] Office/outpat ient Visit, Est [facility], [address] [place] [address] [address], [place], [place], [id number], tel:[phone] [facility] No Information 0 8 Cheryl Jordan. [address] [facility] [address] , [address], [place], [address], . tel:[phone] Referring Provider: Nikki Wolf, [address], [place], [place], [facility]. tel:[phone] [facility], [address], [place], [place], [id number], tel:[phone] [facility] No Information 8 Cheryl Jordan. [address] [facility] [address] , [address], [place], [address], . tel:[phone] Family History Family Member Type Diagnosis Age At Onset No Information Payers Payer name Insurance type Covered libertarian ID Authoriza tion(s) Medicare [facility] [id number] BCBS [facility] BL [id number] Social History Type Description Quantity Date Captured [...]
--- OUTSIDE RECORDS SUMMARY | 2024-10-02 13:29 | XMS_ITS | Clinical Summary ---
Author Organization [facility] Address [address] [place] [address] Care Team Providers Care Enterprise Manager Name Role Phone Marion Spicer MD Primary Care Provider [phone] aSm Cabrera MD Unavailable [phone] Danica Catalan [facility]- Unavailable + Allergies Active Allergy [...] Diagnosed Date Orthostatic hypotension 10/05/2021 Rheumatoid arthritis ([facility]) 8 Angina at rest 05/29/2017 CKD (chronic [...] 11/04/2020 Mixed hyperlipidemia Coronary artery disease involving [place] coronary artery of [place] heart without angina pectoris from Last 3 Months or Most Recently Relevant to Health Maintenance Results * LIPID PANEL (11/04/2020) CHOLESTEROL 145 HDL 69 TRIGLYCERIDES 96 LDL (CALCULATED) 57 11/04/2020 us Clay Blackwood MD LABORATORY Final Resul t from Last 3 Months or Most Recently Relevant to Health Maintenance Insurance MEDICARE [facility] MEDICARE [facility] Care Teams Enterprise Manager Relationship Specialty Start Date End Date Marion Spicer MD [address] [place] [phone] PCP - General INTERNAL MEDICINE 06/05/17 Sam Cabrera MD [address] [place] [phone] INTERVENTIONAL CARDIOLOGY 06/21/23 Danica Catalan ANP- [address] [place] [address] Nurse Practitioner NURSE PRACTITIONER ADULT HEALTH 06/21/23
[2024-10-03 18:08] LABS: Calcium, Ionized 5.7 mg/dL (4.5-5.6)
== END 2024-10-02 13:25 | disposition home or self-care (01) ==
PROVIDERS: PCP Internal Medicine; Visit Provider Internal Medicine
DX: E83.52 Hypercalcemia (principal)
CPT/HCPCS: 82330; 83970

== ENCOUNTER 2024-10-22 12:17 | Outpatient (CLI) | payer MEDICARE, BC, SELFPAY ==
--- OUTSIDE RECORDS SUMMARY | 2007-05-13 09:58 | XMS_ITS | Continuity of Care Document ---
Author Organization [facility] Address [address] [place] [address] [address] [place] [address] Phone Care Team Providers Care Tele Marketing Executive Name Role Phone Nikki Luna Unavailable Unavailable Procedures Procedure Date Eye Exam Established Pt Optic Nerve Head Eval Remove Foreign Body From Eye Office/outpatient Visit, Est Optic Nerve Head Eval Fundus Photography W/ Report Eye Exam, New Patient Optic Nerve Head Eval Advance Directives Directive Yes / No Effective Date File Name No Information Encounters Encounter Description Practice Location Reason(s) For Visit Diagnoses Date Provider Providers Copied on Encounter [facility], [address] [place] [address] [address], [place], [place], [id number], tel:[phone] [facility] No Information 8-200 8 Cheryl Wong [address] , [address], [place], [place], [facility], [place]. tel:[phone] [facility], [address] [place] [address] [address], [place], [place], [id number], [place] tel:[phone] [facility] No Information 1-200 8 Cheryl Wong [address] [facility] [address] , [address], [place], [place], [facility], . tel:[phone] Office/outpat ient Visit, Est [facility], [address] [place] [address] [address], [place], [place], [id number], tel:[phone] [facility] No Information 0 8 Cheryl Jordan. [address] [facility] [address] , [address], [place], [address], . tel:[phone] Referring Provider: Nikki Wolf, [address], [place], [place], [facility]. tel:[phone] [facility], [address], [place], [place], [id number], tel:[phone] [facility] No Information 8 Cheryl Jordan. [address] [facility] [address] , [address], [place], [address], . tel:[phone] Family History Family Member Type Diagnosis Age At Onset No Information Payers Payer name Insurance type Covered green party ID Authoriza tion(s) Medicare [facility] [id number] BCBS [facility] BL [id number] Social History Type Description Quantity Date Captured Comments Sex Female Smoking Status No Information Chief Complaint And Reason For Visit No Information Reason For Referral Reason For Referral No Information History Of Present Illness Encounter Date Complaint History Of Prese nt Illness No Information Functional Status Date Functional Assessmen t No Information Instructions Date Instruction Additional Infor mation No Information Assessments Type Assessment Date No Information Patient Care Teams Name Effective Dates (start - stop) Status Members No Information
--- NOTE | ~2024-10-22 | US_ITS ---
EXAMINATION: US thyroid DATE: 10/22/2024 12:45 INDICATION: Goiter TECHNIQUE: Multiple ultrasound images of the thyroid were obtained. COMPARISON: None. FINDINGS: The right thyroid lobe measures 4.6 x 2.0 x 2.9 cm. The left thyroid lobe measures 3.6 x 1.9 x 1.5 cm. There is heterogeneous echogenicity and coarsened echotexture with increased vascular flow on color Doppler throughout both thyroid lobes. 2.5 cm solid isoechoic polyp than wide nodule with ill-defined margins and without echogenic foci in the right thyroid lobe (TI-RADS 4, moderately suspicious , FNA if >=1.5 cm, annual followup is >=1 cm). 1.4 cm solid hypoechoic wider than tall nodule with smooth margins and without echogenic foci, also TI RADS 4 and the left thyroid lobe. 2.4 cm isoechoic solid wider than tall nodule with smooth margins and right thyroid lobe (TI-RADS 3, mildly suspicious , FNA if >=2.5 cm, annual followup is >=1.5 cm). 7 mm solid very hypoechoic nodule which is taller than wide with smooth margins and without echogenic foci in the medial right thyroid lobe (TI-RADS 5, highly suspicious , FNA if >=1.0 cm, annual followup is >0.5 cm). IMPRESSION: 1. Multinodular goiter. Recommend ultrasound-guided biopsy 2.5 cm TI RADS 4 right thyroid nodule. 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 IMPRESSION: 1. Multinodular goiter. Recommend ultrasound-guided biopsy 2.5 cm TI RADS 4 rig ht thyroid nodule.
--- OUTSIDE RECORDS SUMMARY | 2024-10-22 12:20 | XMS_ITS | Clinical Summary ---
Author Organization [facility] Address [address] [place] [address] Care Team Providers Care Supervisor Fiberglass Boat Assembly Name Role Phone Marion Spicer MD Primary Care Provider [phone] Allergies Active Allergy Reactions Criticality Noted Date Comments Brimonidine Eye irritation,Redness Low 10/12/2024 Last noted on 06/15/2024 Dorzolamide-Timolol Eye irritation,Redness Low 09/25 Last noted on 06/15/2024 Dorzolamide Eye irritation,Other (See comments) Medium 09/11/2018 Latanoprost Eye irritation Low 10/12/2024 Last noted on 06/15/2024 Medications amitriptyline (ELAVIL) 10 mg tablet Take [...] TO 3 DOSES 1 8 Active multivitamin tabletIndicatio ns:Vitamin Deficiency Prevention Active artificial tears (SYSTANE) 0.3 % gel Apply to both eyes. Active propylene glycol 0.6 % dropsIndication s:Dry Eye,Systane Administer 1 drop into affected eye(s) [...] MOUTH EVERYDAY AT BEDTIME 0 9 Active dwpwzydb-mvx-eu rrous fumarate 9 mg iron/15 mL liquid Take [...] times a day as needed 5 Active travoprost (TRAVATAN Z) 0.004 % drops Administer 1 drop into the right eye nightly 5 mL 11 5 Active latanoprost (XALATAN) 0.005 % ophthalmic solution Administer 1 drop into the right eye nightly 2.5 mL 11 5 10/13/19 25 Discontin ued(Alter nida therapy) Active Problems Problem Noted Date Diagnosed Date [...] eyes, moderate stage 01/27/2015 Assessment & Plan (10/09/2024 10:11 AM CDT): Here for IOP check Not on any glaucoma drops IOP too high OD, OS good Consider SLT vs latan OD Patient prefers to restart latanoprost, if IOP not improved in 3 months RTC 3 months for IOP check, possible SLT Assessment & Plan (07/16/2024 10:23 AM CDT): [...] eyes Assessment & Plan (04/09/2019 10:31 AM STEAM SERVICE INSPECTOR): Continue to monitor I am scribing in the presence of Dr. Haley on 04/09/2019, SHALONDA Cool. Assessment & Plan (07/22/2018 11:07 AM CDT): Lenses in place and clear. 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 Encounters Date Type Department Care Team Description 10/20/2024 Orders Only [facility] Medicine Ophthalmology [address] [place] [phone] Yohana Espinosa MD Primary open angle glaucoma (POAG) of both eyes, moderate stage (Primary Dx) 10/12/2024 Telephone [facility] Medicine Ophthalmology [address] [place] [address] Yohana Espinosa MD Medication 10/09/2024 9:45 AM CDT Office Visit [facility] Medicine Ophthalmology [address] [place] [phone] Yohana Espinosa MD Primary open angle glaucoma (POAG) of both eyes, moderate stage (Primary Dx) from Last 3 Months Immunizations Immunization Administration Dates Next Due Influenza, Quadrivalent, Hig h Dose, Preservative Free, Intrr 10/29/2019 Pneumococcal Conjugate PCV 13 08/11/2014 ZOSTER Recombinant 02/20/2019,12/12/2018 Surgical History Surgery Date Site/Laterality Comments [place] XCAPSL CTRC RMVL INSJ IO LENS PROSTH W/O ECP Extracaps Cataract Extract With Prosthesis Insert Left Eye - (Added by TW Conv) [place] XCAPSL CTRC RMVL INSJ IO LENS PROSTH W/O ECP Extracaps Cataract Extract With Prosthesis Insert Right Eye - (Added by TW Conv) [place] TRABECULOPLASTY BY LASER SURGERY Anterior Chamber Laser [...] on file Legal Sex Female 1:22 AM STEAM SERVICE INSPECTOR Gender Identity Not on file Sexual Orientation Not on file Occupation Industry Job Start Date Job End Date Retired from [employer] Not on file Not on cristina e [...] Pneumococcal vaccine 65+ (2 of 2 - PCV20 or PCV21) 08/12/2015 08/11/2014 Influenza Vaccine (#1) 2024 10/29/2019 Zoster Vaccine Completed 02/20/2019, 12/12/2018 Insurance MEDICARE [facility] Address: [address] [place] [address] [facility] MEDICARE MEDICARE Care Teams Supervisor Fiberglass Boat Assembly Relationship Specialty Start Date End Date Marion Spicer MD [address] [place] [address] PCP - General 08/09/16
--- OUTSIDE RECORDS SUMMARY | 2024-10-22 12:20 | XMS_ITS | Encounter Summary ---
Author Organization [facility] Address [address] [place] [address] Care Team Providers Care Spray Applicator Name Role Phone Marion Spicer MD Primary Care Provider [phone] Clay Blackwood MD Unavailable [phone] Sam Cabrera MD Unavailable [phone] Danica Catalan [facility] Unavailable + Encounter Details Date Type Department Care Team (Late st Contact Info) Description 05/29/2017 Abstract [facility] [address] [place] [phone] lCay Blackwood MD [address] [place] [address] Social History Tobacco Use Types [...] hyperlipidemia documented in this encounter Care Teams Spray Applicator Relationship Specialty Start Date End Date Marion Spicer MD [address] [place] [address] PCP - General INTERNAL MEDICINE 06/05/17 Clay Blackwood MD [address] [place] [phone] [place] Donor Floor Technician CARDIOVASCULAR DISEASE 06/05/17 06/20/23 Sam Cabrera MD [address] [place] [phone] INTERVENTIONAL CARDIOLOGY 06/21/23 Danica Catalan, [facility]- [address] [place] [address] Nurse Practitioner NURSE PRACTITIONER ADULT HEALTH 06/21/23 documented as of this encounter
--- OUTSIDE RECORDS SUMMARY | 2024-10-22 12:20 | XMS_ITS | Clinical Summary ---
Author Organization [facility] Address [address] [place] [address] Care Team Providers Care Hop Farm Worker Name Role Phone Marion Spicer MD Primary Care Provider [phone] Sam Cabrera MD Unavailable [phone] Danica Catalan [facility]- Unavailable + Allergies Active Allergy [...] Diagnosed Date Orthostatic hypotension 10/05/2021 Rheumatoid arthritis ([facility]) 8 Angina at rest 05/29/2017 CKD (chronic [...] 11/04/2020 Mixed hyperlipidemia Coronary artery disease involving [place] coronary artery of [place] heart without angina pectoris from Last 3 Months or Most Recently Relevant to Health Maintenance Results * LIPID PANEL (11/04/2020) CHOLESTEROL 145 HDL 69 TRIGLYCERIDES 96 LDL (CALCULATED) 57 11/04/2020 us Clay Blackwood MD LABORATORY Final Resul t from Last 3 Months or Most Recently Relevant to Health Maintenance Insurance MEDICARE [facility] MEDICARE [facility] Care Teams Hop Farm Worker Relationship Specialty Start Date End Date Marion Spicer MD [address] [place] [phone] PCP - General INTERNAL MEDICINE 06/05/17 Sam Cabrera MD [address] [place] [phone] INTERVENTIONAL CARDIOLOGY 06/21/23 Danica Catalan ANP- [address] [place] [address] Nurse Practitioner NURSE PRACTITIONER ADULT HEALTH 06/21/23
--- OUTSIDE RECORDS SUMMARY | 2024-10-22 12:20 | XMS_ITS | Encounter Summary ---
Author Organization [facility] Address [address] [place] [address] Phone Care Team Providers Care Box Toe Cementer Name Role Phone Marion Spicer MD Primary Care Provider [phone] Reason for Referral * Procedure (Routine) - Authorized Specialty Diagnoses / Procedures Referred By Contestephania t Referred To Contact Diagnoses Primary open angle glaucoma (POAG) of both eyes, moderate stage Procedures Laser Trabeculoplasty Selective - OD - Right Eye Yohana Espinosa MD [address] [place] [address] Phone: tel: fax: [facility] (All Locations) Referral ID Status Reason Start Date Expiration Date V isits Requested Visits Authorized [id number] Authorized 10/20/2024 11/19/2025 1 1 Encounter Details Date Type Department Care Team (Late st Contact Info) Description 10/20/2024 Orders Only [facility] Medicine Ophthalmology [address] [place] [address] [place] [phone] Yohana Espinosa MD [address] [place] [address] Primary open angle glaucoma (POAG) of both eyes, moderate stage (Primary Dx) Social History Tobacco Use Types Packs/Day Years Used Date Smoking Tobacco: Never Smokeless Tobacco: Never AUDIT-C Answer Date Recorded Q1: How often do you have a drink containing alc ohol? Never 08/10/2021 Average Number of Drinks Not on file 022 Q3: How often do you have si x or more drinks on one occasion? Never 08/10/2021 Comments Unknown Sex and Gender Information Value Date Recorded Sex Assigned at Not on file Legal Sex Female 1:22 AM BANDER OPERATOR Gender Identity Not on file Sexual Orientation Not on file Occupation Industry Job Start Date Job End Date Retired from [employer] Not on file Not on cristina e Not on file documented as of this encounter Plan of Treatment Scheduled Orders Name Type Priority Associated Diagnoses Orde r Schedule Laser Trabeculoplasty Selective - OD - Right Eye Ophthalmology Routine Primary open angle glaucoma (POAG) of both eyes, moderate stage Expected: 10/20/2025, Expires: 01/18/2026 documented as of this encounter Visit Diagnoses Diagnosis Primary open angle glaucoma (POAG) of both eyes, moderate stage- Primary documented in this encounter Care Teams Box Toe Cementer Relationship Specialty Start Date End Date Marion Spicer MD [address] [place] [address] PCP - General 08/09/16 documented as of this encounter
--- OUTSIDE RECORDS SUMMARY | 2024-10-22 12:21 | XMS_ITS | Patient Health Record ---
Author Organization [facility] Address [address] [place], [place] [address] Care Team Providers Care Electrical Technician Instructor Name Role Phone Olga Spicerkonstantin Unavailable Unavailable Allergies Allergen (clinical drug ingredient) Drug/Non Drug [...] capsule Or ally Once a day Active Plan Of Treatment No Information Insurance Providers Payer Name Payer Address Payer Phone Subscriber Number Group Number Insured Name Patient Relationship to Insured Coverage Start Date Coverage End Date Medicare Part B [place] [address] [place] [address] [id number] Marisel Blunt Self - patient is the insured [facility] ([facility]) ATTN CLAIMS [address] [place] [address] [id number] Marisel Blunt Self - patient is the insured Medical (General) History Medical History History ICD Code Leg/Feet cramps Arthritis Back Trouble hypertension Surgical History Surgery Date(Month/Year) Gall Bladder
== END 2024-10-22 12:18 | disposition home or self-care (01) ==
PROVIDERS: PCP Internal Medicine; Visit Provider Internal Medicine
DX: E04.2 Nontoxic multinodular goiter (principal)
CPT/HCPCS: 76536